=== PATIENT | male | born 1935 | race Caucasian/White ===

== ENCOUNTER → 2024-03-17 | Outpatient (CLI) | payer OTHER, SELFPAY ==
[2024-03-17 14:25] LABS: Glucose,Fasting 110 mg/dL (74-106)
== END | disposition home or self-care (01) ==
PROVIDERS: PCP Family Medicine; Referring Provider Dermatology; Visit Provider Dermatology
DX: B37.2 Candidiasis of skin and nail (principal)
CPT/HCPCS: 36415; 82947

== ENCOUNTER 2024-03-29 04:01 | Inpatient (IN) | payer OTHER, MEDICARE, SELFPAY ==
[2024-03-29] VITALS (12 sets, daily range): BP systolic 113–134; BP diastolic 71–88; PULSE 84–108; RESP 16–20; TEMP 36.7–37.7; O2SAT 96–100; BMI 23.5; BMI 24.3
--- NOTE | 2024-03-29 04:23 | XR_ITS ---
Examination:Right hip AP, lateral, AP pelvis 3 views Technique: Hip AP lateral, AP pelvis, 3 views Exam date and time:30 hours Indications: Patient fell today with injury to the right hip, right hip pain Findings: Acute angulated intertrochanteric fracture right hip Left hip bones of the pelvis intact Impression: Acute angulated intertrochanteric fracture right hip.
--- NOTE | 2024-03-29 04:31 | EDNOTE_ITS ---
ED Fall Injury RME/HPI General Chief Complaint: Fall Stated Complaint: FALL Time Seen by Provider: 03/29/24 04:33 Arrival date/time: 03/29/24 04:01 RME / HPI RME / HPI Narrative: Dr. Miller's Main ED Evaluation: 88yo male with pmhx COPD, aFib, BPH BIBA from home presents to the ED for a chief complaint of a ground-level fall. Patient states he was walking to the bathroom when lost his balance, landing on his right leg. He reports having right hip pain and the inability to move his RLE. He endorses hitting his head, but denies any loss of consciousness. Reports having nausea. He denies any dizziness, lightheadedness, V/D, chest pain, shortness of breath, abdominal pain, back pain, headache or any other associated symptoms. No known allergies. Related Data Home Medications ?Medication ?Instructions ?Recorded ?Confirmed budesonide-formoterol HFA 160 2 inh inhalation BID 11/25/22 10/09/23 mcg-4.5 mcg/actuation aerosol inhaler (Symbicort) diltiazem HCl 240 mg 240 mg PO QDAY 11/25/22 10/09/23 capsule,extended release 24 hr memantine 5 mg tablet 5 mg PO BID 11/25/22 10/09/23 mirtazapine 45 mg tablet 45 mg PO QDAY 11/25/22 10/09/23 famotidine 20 mg tablet 20 mg PO QDAY 04/23/23 10/09/23 finasteride 5 mg tablet 5 mg PO QDAY 04/23/23 10/09/23 rosuvastatin 10 mg tablet (Crestor) mg 09/25/23 10/09/23 tamsulosin 0.4 mg capsule 0.4 mg PO QHS 10/09/23 10/09/23 Previous Rx's ?Medication ?Instructions ?Recorded apixaban 2.5 mg tablet (Eliquis) 2.5 mg PO BID #60 tabs 08/20/23 Allergies Allergy/AdvReac Type Severity Reaction Status Date / Time No Known Allergies Allergy Verified 10/09/23 11:39 Review of Systems Review of Systems Systems Reviewed: All systems reviewed, normal except as documented Narrative Review of Systems: Gen: No fever, no chills, no weight loss EYES: No discharge, no visual changes, no pain HEENT: No ear pain, no congestion, no sore throat PULM: No shortness of breath, no cough, no congestion CV: No chest pain, no dyspnea on exertion, no palpitations GI: No nausea, no vomiting, no diarrhea, no pain, no constipation : No frequency, no urgency, no dysuria Musc/skel: + RLE pain, no back pain Skin: No rash. Warm and dry. Psyc: No hallucinations, no depression Heme/Lymph: No easy bleeding or bruising tendencies Neuro: No weakness, no headache ED Exam Narrative Physical exam: GEN. APPEARANCE: Patient is alert awake oriented x3 under pain distress; does not look ill/ toxic. Patient has good eye contact. Patient is cooperative. VITALS: All vitals were reviewed and the pulse ox is 99% on room air, which is normal according to my interpretation. HEENT: Normocephalic, atraumatic and nontender. Pupils are equal and reactive to light and accommodation. Oral mucosa are moist. NECK: Supple, nontender, no meningismus, no JVD. CHEST: Nontender on palpation, no deformity and no crepitus. CARDIOVASCULAR: Heart regular rhythm no murmur or gallop rub or extra beats; not tachycardic. LUNGS: Clear to auscultation bilaterally with symmetrical chest rise. No laboring tachypnea or wheezing. No intercostal subcostal retraction. No rales and no rhonchi. ABDOMEN: Soft, flat, nontender at all, no guarding or rebound tenderness. There are no abnormal masses palpated. No pulsatile masses or bruits. Active and normal bowel sounds. GENITALIA: Not examined. RECTAL EXAM: Not done. EXTREMITIES: Nontender. No edema. No cyanosis. Patient's RLE is shortened and externally rotated. N/V is intact. There's no local laceration. SKIN: Warm and dry, no rashes noted. MUSCULOSKELETAL: No lumbar or midline bony tenderness. There is no CVA tenderness. No paraspinal muscle spasm or tenderness. NEURO: Cranial nerves II through XII grossly intact. There is no focalization. GCS is 15. PSYCHIATRIC: Patient is in normal mood and affect, cooperative. LYMPHATICS: No major lymphadenopathy noted. Course Quality Measures none Orders Category Date Time Status EKG (ED ONLY) *Do not use* NOW Care 03/29/24 04:34 Active Hall [Urinary Catheter] QS Care 03/29/24 04:33 Active IV [Insert IV] NOW Care 03/29/24 04:33 Completed Consult to Orthopedic Stat Cons 03/29/24 05:[address] cervical spine wo con Stat Exams 03/29/24 04:[address] head/brain wo con Stat Exams 03/29/24 04:[address] hip RT wo con Stat Exams 03/29/24 04:37 Taken EKG (ED Only) Stat Exams 03/29/24 04:33 Draft XR femur RT 2V Stat Exams 03/29/24 04:47 Ordered XR hip RT w pelvis min 4V Stat Exams 03/29/24 04:23 Taken CBC Stat Lab 03/29/24 04:34 Ordered CMP [Comprehensive Metabolic Panel] Stat Lab 03/29/24 04:34 Ordered PT [Prothrombin Time with INR] Stat Lab 03/29/24 04:34 Ordered PTT [Partial Thromboplastin Time] Stat Lab 03/29/24 04:34 Ordered Troponin I Stat Lab 03/29/24 04:34 Ordered Type and Screen Stat Lab 03/29/24 04:36 Ordered UA, C/S IF [Urinalysis, C/S if Indicated] Stat Lab 03/29/24 04:35 Ordered Morphine Inj Med 03/29/24 04:33 Discontinued 5 mg IVP X1 ONE Ondansetron Odt [Zofran Odt] Med 03/29/24 04:33 Discontinued 4 mg PO X1 ONE Vital Signs Vital signs: Vital Signs Temperature 98.0 F 03/29/24 04:06 Pulse Rate 99 03/29/24 04:06 Respiratory Rate 18 03/29/24 04:06 Blood Pressure 134/76 H 03/29/24 04:06 Pulse Oximetry (%) 99 03/29/24 04:06 Oxygen Delivery Method Room Air 03/29/24 04:06 Procedures -ED EKG Interpretation #1: Date of EK03/29/24 Rate: 92 Interpretation: Interpreted by me EKG Impression: Normal axis, Atrial fibrillation and Non-specific ST-T Fall MDM Narrative MDM Narrative:: Scribe Attestation: 03/29/24 - Trista Haney am scribing for and in the presence of Dr. Miller. Patient was brought in by ambulance from home due to a fall about 1 and half hours ago when he was walking from his bed to his bathroom to urinate and he lost his balance and fell on his right side. He complains of right hip pain without any pain in his knee or his lower leg. He says that he hit his head but he did not lose consciousness nor he has any headache. He denies any dizziness before or after the fall. He was nauseated from the pain but he did not vomit. He says that the pain is excruciating and he is requesting painkillers right away. He denies any back pain. He says that he hit his right side of his chest from a coffee table and he is got a small abrasion on his anterior right lower chest without any active bleed; there is no gaping of the wound. He never broke her hip before. He has history of chronic atrial fibrillation and he is on Eliquis 2.5 mg twice daily. On the physical exam, it shows a shortening of the right lower extremity with external rotation indicative of right hip fracture. He has a history of COPD but no hypertension and he quit smoking more than 30 years ago. At 5 AM, his x-rays do confirm that he has a completely displaced right intratrochanteric fracture according to my interpretation. There is no dislocation. Therefore, I texted the images to Dr. Lundberg, our orthopedic doctor on-call and he wants the hospitalist to admit him to the hospital and he will consult in the morning. And I discussed the case with Dr. Ramsey, PGY2, who said that she will pass the case onto the morning Because we do not have any of his CAT scans nor his lab work yet. Provider Notation: Although this document has been carefully reviewed, there may still be some phonetic and other typographical errors. These errors are purely grammatical due to imperfections in the software program and should not be construed in any way to compromise the substance of the patient's medical care during this visit. Patient data External records reviewed:: [facility] previous records (Per chart review, patient was admitted here on 08/16/23 for aFib.) Clinical information provided by:: patient Social determinants that could affect healthcare access:: substance use (quit smoking cigarettes in 1988) Patient has the following chronic illnesses:: COPD, aFib, BPH How is presenting disease/condition affected by chronic disease/condition?: uneffected by Evaluation data The following diagnostics were reviewed and interpreted by me:: lab results, radiology exam(s) and EKG tracing(s) Lab and/or radiology exams considered but not ordered:: none Interpretation Summary: See above under MDM narrative. Medications / Prescriptions Medications or Prescriptions considered but not ordered:: none Medication administrations:: Medication Administration History Discontinued Medications Morphine Sulfate (Morphine Sulf Inj 10 Mg/Ml Vial) 5 mg IVP X1 ONE Stop: 03/29/24 04:34 Last Admin: 03/29/24 04:42 Dose: 5 mg Documented By: RADHA Ondansetron HCl (Ondansetron Odt 4 Mg Tabrap) 4 mg PO X1 ONE; Protocol Stop: 03/29/24 04:34 Last Admin: 03/29/24 04:42 Dose: 4 mg Documented By: RADHA see above, if any Consultations Consultation(s) initiated? (list below): Yes Diagnosis Fall Differential Diagnosis: other (fall, fracture, dislocation, ICH, cervical fracture) Most likely diagnosis given after review of the tests above:: see below Admission Indicated Admission indicated?: indicated Admission Request Was there a request for admission?: Yes Admission Attestation Admission request attestation: Discussed case with [] from Hospitalist service regarding admission. Discussed patients ED course, exam findings, labs, and radiology results. The Hospitalist [agrees,declines] to accept the patient for admission. Disposition Plan Disposition Plan: Admit Discharge Plan Plan Patient Disposition: Admit Acute Care w/in Hospital Prescriptions/Referrals Prescriptions/Med Rec: No Action tamsulosin 0.4 mg capsule 0.4 mg PO QHS famotidine 20 mg tablet 20 mg PO QDAY finasteride 5 mg tablet 5 mg PO QDAY diltiazem HCl 240 mg capsule,extended release 24hr 240 mg PO QDAY Patient Comments: take 1 capsule by mouth once daily mirtazapine 45 mg tablet 45 mg PO QDAY memantine 5 mg tablet 5 mg PO BID Patient Comments: take 1 tablet by mouth twice a day budesonide-formoterol [Symbicort] 160-4.5 mcg/actuation HFA aerosol inhaler 2 inh INHALATION BID Eliquis 2.5 mg Tablet 2.5 mg PO BID Qty: 60 0RF rosuvastatin [Crestor] 10 mg Tablet Problem List Clinical Impression: Fall, Closed intertrochanteric fracture of right femur Patient/Caregiver Discharge Instructions Print Language: Georgian Stand Alone Forms: Iram Award Info., Patient Portal Info Letter
--- NOTE | 2024-03-29 04:33 | EKG_ITS ---
[facility] Test Date: 2024-03-29 Pat Name: MARY GARRISON Department: Room: - Gender: Male Trust Evaluation Supervisor: : [id number] Requested By: Addi Miller Order Number: [id number] Reading MD: Addi Miller Measurements Intervals [place] Rate: 92 P: RI: QRS: 35 QRSD: 74 T: 38 QT: 360 QTc: 447 Interpretive Statements ATRIAL FIBRILLATION NONSPECIFIC T-WAVE ABNORMALITY ABNORMAL RHYTHM ECG Compared to ECG 08/17/2023 16:47:38 T-wave abnormality now present /store/S0/[id number].pdf
--- NOTE | 2024-03-29 04:37 | XR_ITS ---
Examination: CT cervical spine without contrast 2-D sagittal reconstructions 2-D coronal reconstructions 3-D reconstructions. Exam date and time:March 29, 2024 0501 hrs. Indications: Patient fell 2 hours ago with injury to the neck, neck pain CTDI:vol (mGy) 11.86 DLP: (mGycm) 272 Technique: Multiple 2 mm axial sections of the cervical spine have been obtained. The coronal and sagittal reconstructions have been obtained. 3-D reconstructions have been obtained. Low dose protocols were performed. One or more of the following dose reduction techniques were used; automated exposure control, adjustment of the mA and/or KV according to patient size, use of iterative reconstruction technique. Findings: Axial sections demonstrate intact base of the skull. C1 exhibit satisfactory relationship to the odontoid. No acute cervical vertebral body fracture seen. Alignment posterior spinous processes satisfactory. 6 mm sclerotic focus in the C7 vertebral body, sagittal image 44, axial image 107 Impression: No acute cervical fracture. 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
--- NOTE | 2024-03-29 04:37 | XR_ITS ---
Examination: CT right hip, without contrast. CT pelvis without intravenous contrast 2-D sagittal reconstructions. 2-D coronal reconstructions. 3-D reconstructions. Date and time of exam: March 28 2024 0503 hrs. Indications: Patient fell 2 hours ago with injury to the right hip, right hip pain CTDI: vol (mGy):6.07 DLP: (mGycm):307 Technique: Multiple 1.25 mm axial sections of the pelvis right hip have been obtained. 2-D sagittal and coronal reconstructions have been obtained. 3-D reconstructions have been obtained. Low dose protocols were performed. One or more of the following dose reduction techniques were used; automated exposure control, adjustment of the mA and/or KV according to patient size, use of iterative reconstruction technique. Findings: Severe osteopenia Acute comminuted angulated intertrochanteric fracture right hip with upward displacement of the femoral shaft Sacral segments intact Iliac bones acetabular regions anterior rami intact Urinary bladder intact with no pelvic hematoma Impression: Acute comminuted angulated intertrochanteric fracture right hip
--- NOTE | 2024-03-29 04:37 | XR_ITS ---
Examination: CT brain head without contrast. 2-D sagittal coronal reconstructions Date and time of exam: March 29, 2024 0500 hrs. Indications: Patient fell 2 hours ago with injury to the head, head pain CTDI: vol (mGy):6.07 DLP: (mGycm):307 Technique: Multiple CT axial sections of the brain have been obtained, 5 mm slice thickness. Contrast has not been administered. 2-D sagittal, coronal reconstructions have been obtained Low dose protocols were performed. One or more of the following dose reduction techniques were used; automated exposure control, adjustment of the mA and/or KV according to patient size, use of iterative reconstruction technique. Findings: No significant ventricular enlargement. 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 No mass effect or midline shift Basal cisterns are not remarkable. Fourth ventricle is midline. Cranial vault intact. Impression: Negative for acute hemorrhage, mass effect or midline shift
[2024-03-29] MEDS: MORPHINE SULF INJ 10 MG/ML VIAL 5 MG IVP ×2 (04:42→08:53)
[2024-03-29] MEDS: ONDANSETRON ODT 4 MG TABRAP PO (04:42)
--- NOTE | 2024-03-29 04:47 | XR_ITS ---
Examination: Right femur 2 views Technique one AP lateral right femur 2 views Exam date and time: March 29, 2024 0549 hrs. Indications: Patient fell today with injury to the right leg, right leg right hip pain Findings: Acute angulated intertrochanteric fracture right hip upward displacement mild of the femoral shaft No dislocation Shaft of the femur intact Severe osteopenia Impression: Acute intertrochanteric fracture right hip
--- NOTE | 2024-03-29 05:06 | EVENTNT_ITS ---
<Statement entered by Donell Laureano MD - 03/29/24 09:21> I was present for the essential components of the history, physical examination, diagnosis, and treatment plan with the resident. I have reviewed the documentation, discussed the case with the resident and agree with the patient's care as documented by the resident. Donell Laureano MD Documentation for date of: 03/29/24 Event Note Event Note: We received a call about patient is 88-year-old male with past medical history of COPD, A-fib, BPH, presented to ED with chief complaints of ground-level fall. He endorses hitting his head, but denies any loss of consciousness, also patient is having a nausea, denied any dizziness, lightheadedness, chest pain, shortness of breath, or any other associated symptoms. CBC is pending, CMP is pending, CT cervical spine, CT head,CT hip, is still pending, x-ray of the femur was done, report still pending. Per ED signout they contacted orthopedic surgeon Dr.Srivastava Mishra who agreed to admit the patient. Since all the labs and imaging still pending patient is on Eliquis, endorsed headache, we will not admit until after CT head is negative. We will follow on the results, if results come back after 6 AM we will let the day team know to follow up with the reports and will sign out to day team. Patient care was discussed with attending physician Dr. Sridevi Small MD PGY-2
[2024-03-29 05:56] LABS: Collection Type, Urine Catheter; Squamous Epithelial Cell,Urine 0 /hpf (0-5)
--- NOTE | 2024-03-29 06:11 | PRELIM_ITS ---
CT scan of the cervical spine without intravenous contrast (axial sections with sagittal and coronal reformats) March 29, 2024 0501 hours Clinical History: fall Findings:The bones are osteopenic. The re is no fracture or traumatic subluxation. There is minimal retrolisthesis of C4 on C5 vertebra. The re is mild reversal of cervical lordosis, which may be related to muscle spasm or patient positioning . Degenerative changes are noted in the form of multilevel marginal osteophytes, decreased disc spac es and endplate sclerosis. C3-C4 through C6-C7 disc osteophyte complexes are noted with associated un cinate hypertrophy and facet arthropathy causing mild spinal canal and bilateral neural foraminal antonette rowing. The prevertebral soft tissues are unremarkable.Impression:No evidence of fracture or traumati c subluxation.Degenerative changes as described above. Other findings as described above. Report Clementina ctronically Signed By: Ivana Toledo 03/29/2024 6:11:00 AM [EST]
--- NOTE | 2024-03-29 06:11 | PRELIM_ITS ---
CT scan of the head without intravenous contrast (axial sections with sagittal and coronal reformats) March 29, 2024 0500 hoursClinical History: fallFindings:There is no evidence of intracranial hemo rrhage, mass effect or midline shift. There are an old lacunar infarcts in the bilateral basal gangl ia. There are periventricular white matter hypodensities, compatible with chronic small vessel ischem ia. There is moderate volume loss. There is atheromatous calcification of the intracranial arteries. Basal ganglia calcifications are present bilaterally. The calvarium is intact. The mastoid air cells and the visualized paranasal sinuses are clear.Impression:No evidence of intracranial hemorrhage, mid line shift or calvarial fracture. Periventricular chronic small vessel ischemia and volume loss. Repo rt Electronically Signed By: Ivana Toledo 03/29/2024 6:10:29 AM [EST]
[2024-03-29 06:15] LABS: Basophils % (Auto) 1 % (0-2.5); Eosinophils # (Auto) 0.1 Thou/mm3 (0.0-0.5); Eosinophils % (Auto) 1 % (0-10); Hematocrit 38.9 % (41.0-53.0); Hemoglobin 12.5 g/dL (13.5-16.0); Immature Granulocytes % (Auto) 0 % (0-0); Immature Granulocytes Auto 0.03 Thou/mm3 (0.00-0.00); Lymphocytes # (Auto) 1.4 Thou/mm3 (1.0-4.8); Lymphocytes % (Auto) 17 % (10-50); Mean Corpuscular HGB Conc 32.1 g/dl (31.0-37.0); Mean Corpuscular Volume 87 fL (80-100); Monocytes # (Auto) 0.4 Thou/mm3 (0.0-0.8); Monocytes % (Auto) 5 % (0-12); Neutrophils # (Auto) 6.1 Thou/mm3 (1.8-7.7); Neutrophils % (Auto) 75 % (37-80); Nucleated Red Blood Cell % 0 /100 WBC (0); Platelet Count 249 Thou/mm3 (140-440); RDW Standard Deviation 49.6 fL (35.1-43.9); Red Blood Count 4.47 Miln/mm3 (4.50-5.90); White Blood Count 8.1 Thou/mm3 (3.8-10.6)
[2024-03-29 06:15] LABS: Bilirubin,Urine Negative (Negative); Blood,Urine 3+ (Negative); Clarity,Urine Turbid (Clear/Hazy); Color,Urine Brown (Lt Yel-Yel); Glucose, Urine Negative (Negative); Ketones,Urine Negative (Negative); Leukocyte Esterase,Urine Positive (Negative); Nitrite,Urine Negative (Negative); Protein,Urine 1+ (Neg - Trace); RBC,Urine 4697 /hpf (0-3); Specific Gravity,Urine 1.015 (1.001-1.035); Urobilinogen,Urine Negative mg/dL (0.0-1.0); WBC,Urine 80 /hpf (0-5)
[2024-03-29 06:23] LABS: Culture Indicated,Urine Yes
[2024-03-29 06:31] LABS: INR 1.1 (0.9-1.3); Partial Thromboplastin Time 23.6 Seconds (22.0-36.0); Prothrombin Time 11.9 Seconds (9.0-12.2)
--- NOTE | 2024-03-29 06:34 | PRELIM_ITS ---
CT scan of the right hip without intravenous contrast (axial sections with sagittal and coronal refor mats) March 29, 2024 0503 hours Clinical History: fall Findings:There is an acute displaced intert rochanteric fracture of the right femur with adjacent soft tissue swelling. The hip joint spaces are maintained. The sacroiliac joints are unremarkable. The visualized soft tissues including pelvic vis cera are unremarkable.Impression:Acute displaced intertrochanteric fracture of the right femur. Rep ort Electronically Signed By: Gonzalo Royal 03/29/2024 6:34:10 AM [EST]
[2024-03-29 06:37] LABS: Alanine Aminotransferase 11 U/L (10-49); Albumin, Serum 4.8 gm/dL (3.4-4.8); Albumin/Globulin Ratio 1.6 (1.2-2.2); Alkaline Phosphatase 109 U/L (46-116); Anion Gap 9 (7-16); Aspartate Amino Transferase 25 U/L (0-34); BUN/Creatinine Ratio 16 Ratio (12-20); Bilirubin,Total 0.6 mg/dL (0.3-1.2); Blood Urea Nitrogen 16 mg/dL (9-23); Calcium 9.5 mg/dL (8.3-10.6); Calcium (Corrected) 9.5 mg/dL (8.5-10.1); Carbon Dioxide 22.6 mMol/L (20.0-31.0); Chloride 105 mMol/L (98-107); Estimated Creatinine Clearance 49.6 mL/min (>60); Glucose 158 mg/dL (74-106); Osmolality,Calculated 278 (275-295); Potassium 3.7 mMol/L (3.4-5.1); Sodium 137 mMol/L (136-145); Total Protein 7.8 gm/dL (5.7-8.2); Troponin I < 0.020 ng/mL (0.0-0.045); eGFR > 60 See Note
[2024-03-29] MEDS: SODIUM CHLORIDE 0.9% 1000 ML 1,000 ML 75 ML IV (11:17)
[2024-03-29] MEDS: TAMSULOSIN HCL 0.4 MG CAPSULE PO (11:19)
[2024-03-29] MEDS: PANTOPRAZOLE INJ 40 MG VIAL IVP (11:19)
[2024-03-29] MEDS: FINASTERIDE 5 MG TABLET PO (11:20)
--- NOTE | 2024-03-29 13:03 | ESHP_ITS ---
<Statement entered by Segundo Orantes MD - 03/29/24 18:29> Senior Resident Attestation: I supervised/discussed management plan with copywriting intern physician Dr. Sue, and was involved in the care of this patient. I personally saw and examined the patient and discussed the assessment and plan with the entire medicine team, including my attending. I agree with the assessment and plan as documented. Patient is a 88 years old male with PMH of COPD, A-fib, recurrent kidney stones with chronic kidney stone followed by Dr. Hanna, BPH and skin Ca presented to the ED after ground-level fall. He was found to have acute comminuted angulated intertrochanteric fracture in right hip and was admitted to the hospital after orthopedic surgery consult. Pain control was provided, his home Eliquis was held due to upcoming surgery. He was also found to have significant hematouria and pyuria with UTI symptoms and was started on IV ceftriaxone. Patient was previously offered surgical management of his kidney stones but he refused. Patient's care was discussed with attending physician, Dr. Hansen. Segundo Orantes MD PGY-2. Documentation for date of: 03/29/24 HPI History of Present Illness History of present illness: Mr. Navarrete is a 88-year-old male with past medical history significant of COPD, chronic bronchitis, asthma, A-fib, BPH, history of skin cancer status post radiation and recurrent kidney stones presents to the ED after a ground-level fall. Patient states that he woke up at 2:00 in the morning to use the bathroom and lost his balance and fell on his right leg. Patient states that he did hit his head on the side of the couch but denies dizziness or syncopal episodes. Patient denies a headache vision changes or chest pains. Patient lives with his and a son. Patient denies any abdominal pain but does state that he has noticed blood in his urine for a long time and denies any blood in his stool. Patient sees a urologist who previously had offered for surgery to remove kidney stones which patient had declined at the time. Patient also states that recently he was told that he has prediabetes which is now diet controlled. Patient denies any previous episodes of falls. ED course: In the ED patient's vitals include blood pressure 134/76, pulse 99, lab findings had no significant findings. Urinalysis showed urine blood 3+, urine RBC 4697, urine WBC 80 and leukocyte esterase positive. Hip/pelvis x-ray- Acute angulated intertrochanteric fracture right hip. Cervical spine CT-no acute cervical fracture. 6 mm sclerotic focus in the C7 vertebral body, differential would include osteoblastic metastasis. Head CT was negative for acute hemorrhage, mass effect or midline shift. Hip CT- Acute comminuted angulated intertrochanteric fracture right hip Femur x-ray- Acute intertrochanteric fracture right hip EKG [id number] with T wave abnormality Dr. Lundberg was consulted by the ED Dr. Bravo his set rider was also consulted by the ED Patient was given 5 Mg of morphine x 2 PMH: COPD, chronic bronchitis, asthma, A-fib, nephrolithiasis, history of skin cancer on scalp s/p radiation PSH: Femoral and hiatal hernia repair SH: Drinks alcohol occasionally, last cigarette was in 1988, denies use of drugs Home Meds: Eliquis, tamsulosin 0.4 Mg, silodosin, rosuvastatin, memantine 5 Mg, mirtazapine Review of Systems Review of Systems Systems Reviewed: All systems reviewed, normal except as documented Exam Vital Signs Temp Pulse Resp BP Pulse Ox O2 Del Method 98.2 F 88 20 130/73 99 Room Air 03/29/24 12:46 03/29/24 12:46 03/29/24 12:46 03/29/24 12:46 03/29/24 12:46 03/29/24 12:46 Narrative Exam GENERAL: A&Ox3 . Awake, mildly in distress from pain NEURO: associate automation engineer grossly intact, moves extremities x4 HEENT: Atraumatic, Normocephalic. mucous membranes moist. Eyes open, symmetrical, & clear HEART: Normal Heart Sounds LUNGS: Clear to auscultation with no wheezing or crackles. ABDOMEN: soft, non-distended, non-tender, bowel sounds heard, no guarding or rebound tenderness SKIN: No Rash or ecchymoses EXTREMITIES: No edema, tenderness over the right hip region Results: Labs 03/31/24 04:45 03/31/24 04:45 Labs: Short CBC 03/29/24 Range/Units 05:38 WBC 8.1 (3.8-10.6) Thou/mm3 Hgb 12.5 L (13.5-16.0) g/dL Hct 38.9 L (41.0-53.0) % Plt Count 249 (140-440) Thou/mm3 BMP 03/29/24 05:38 Sodium 137 Potassium 3.7 Chloride 105 Carbon Dioxide 22.6 BUN 16 Creatinine 1.0 Glucose 158 H Calcium 9.5 Cardiac Enzymes 03/29/24 Range/Units 05:38 Troponin I < 0.020 (0.0-0.045) ng/mL Liver Function 03/29/24 Range/Units 05:38 Total Bilirubin 0.6 (0.3-1.2) mg/dL AST 25 (0-34) U/L ALT 11 (10-49) U/L Alkaline Phosphatase 109 (46-116) U/L Albumin 4.8 (3.4-4.8) gm/dL Urine 03/29/24 Range/Units 05:25 Urine Color Brown A (Lt Yel-Yel) Urine Clarity Turbid A (Clear/Hazy) Urine pH 6.0 (5.0-7.0) Ur Specific [place] 1.015 (1.001-1.035) Urine Protein 1+ A (Neg - Trace) Urine Glucose (UA) Negative (Negative) Quality Measures Quality Measures none Advance care planning discussed with:: patient Medications Home Medications and Allergies Home Medications ?Medication ?Instructions ?Recorded ?Confirmed ?Type budesonide-formoterol HFA 160 2 inh inhalation BID 11/25/22 10/09/23 History mcg-4.5 mcg/actuation aerosol inhaler (Symbicort) diltiazem HCl 240 mg 240 mg PO QDAY 11/25/22 10/09/23 History capsule,extended release 24 hr memantine 5 mg tablet 5 mg PO BID 11/25/22 10/09/23 History mirtazapine 45 mg tablet 45 mg PO QDAY 11/25/22 10/09/23 History famotidine 20 mg tablet 20 mg PO QDAY 04/23/23 10/09/23 History finasteride 5 mg tablet 5 mg PO QDAY 04/23/23 10/09/23 History rosuvastatin 10 mg tablet (Crestor) mg 09/25/23 10/09/23 History tamsulosin 0.4 mg capsule (Flomax) 0.4 mg PO QHS 10/09/23 03/30/24 History hydrocodone 10 mg-acetaminophen 1 tab PO BID PRN Pain, Moderate 03/31/24 03/31/24 History 325 mg tablet Allergies Allergy/AdvReac Type Severity Reaction Status Date / Time No Known Allergies Allergy Verified 10/09/23 11:39 Visit Medications Acetaminophen (Acetaminophen 325 Mg Tablet) 650 mg PO Q6H PRN PRN Reason: PAIN SCALE 1-3 (mild Stop: 04/28/24 09:15 Hydrocodone Bitart/Acetaminophen (Hydrocodone/Apap 5/325 Tablet) 1 tab PO Q4HR PRN PRN Reason: PAIN SCALE 4-6 (Moderate Stop: 04/03/24 09:15 Albuterol/Ipratropium (Albuterol/Ipratropium (Duoneb) Rt Wilda 3 Ml Nebu) 3 ml INH Q6HRRT PRN PRN Reason: wheezing or SOB Stop: 04/28/24 12:59 Finasteride (Finasteride 5 Mg Tablet) 5 mg PO QDAY [place]ET[place] Stop: 04/28/24 09:29 Last Admin: 03/29/24 11:20 Dose: 5 mg Sodium Chloride (Ns) 1,000 mls @ 75 mls/hr IV .[id number] CORETTA Stop: 03/30/24 11:54 Last Admin: 03/29/24 11:17 Dose: 75 mls/hr Morphine Sulfate (Morphine Sulf Inj 10 Mg/Ml Vial) 2 mg IVP Q2H PRN PRN Reason: PAIN SCALE 7-10 (Severe Stop: 04/03/24 09:15 Ondansetron HCl (Ondansetron Inj 2 Mg/Ml Inj 2 Ml) 4 mg IV Q6H PRN; Protocol PRN Reason: NAUSEA OR VOMITING Stop: 04/28/24 09:15 Pantoprazole Sodium (Pantoprazole Inj 40 Mg Vial) 40 mg IVP QDAY [place]ET[place] Stop: 04/28/24 09:29 Last Admin: 03/29/24 11:19 Dose: 40 mg Tamsulosin HCl (Tamsulosin Hcl 0.4 Mg Capsule) 0.4 mg PO QDAY [place]ETTA Stop: 04/28/24 09:29 Last Admin: 03/29/24 11:19 Dose: 0.4 mg Discontinued Medications Morphine Sulfate (Morphine Sulf Inj 10 Mg/Ml Vial) 5 mg IVP X1 ONE Stop: 03/29/24 04:34 Last Admin: 03/29/24 04:42 Dose: 5 mg Morphine Sulfate (Morphine Sulf Inj 10 Mg/Ml Vial) 5 mg IVP X1 ONE Stop: 03/29/24 08:39 Last Admin: 03/29/24 08:53 Dose: 5 mg Ondansetron HCl (Ondansetron Odt 4 Mg Tabrap) 4 mg PO X1 ONE; Protocol Stop: 03/29/24 04:34 Last Admin: 03/29/24 04:42 Dose: 4 mg Assessment & Plan Plan TMr. Navarrete is a 88-year-old male with past medical history significant of COPD, chronic bronchitis, asthma, A-fib, BPH, history of skin cancer status post radiation and recurrent kidney stones presents to the ED after a ground-level fall. Imaging revealed right hip fracture. # Acute intertrochanteric fracture right hip ?Due to ground-level fall -Hip/pelvis x-ray- Acute angulated intertrochanteric fracture right hip. -Cervical spine CT-no acute cervical fracture. 6 mm sclerotic focus in the C7 vertebral body, differential would include osteoblastic metastasis. -Head CT was negative for acute hemorrhage, mass effect or midline shift. -Hip CT- Acute comminuted angulated intertrochanteric fracture right hip -Femur x-ray- Acute intertrochanteric fracture right hip Plan: ? Ortho consulted Dr. Lundberg plans to do surgery on sunday 04/01 ? Pain management - [place] PRN Q4H -D/c Eliquis and all anticoagulation #UTI #pyuria -On urinalysis leukocyte esterase positive, urine WBC 80 -Patient denies dysuria and urinary urgency plan: -Ceftriaxone 1 g daily started 03/29- -monitor daily CBC # A-fib rate controlled ? [id number] of 5 ? Patient was taking diltiazem 240 CD once a day and Eliquis 2.5 mg twice daily. ? EKG showed A-fib with rate control. QTc 447. ? Echocardiogram from September 2023 -Estiamted EF 60-65%. Mild RV dilatation. Severe biatrial dilatation. The acending aorta is mildly dilated. 3.6cm. Moderate MR, TR. Mild AI. Plan: -Patient's set rider is Dr. Bravo, consulted with the following recommendations ? resume diltiazem 240 CD once a day ? Recommended to hold Eliquis given patient require hip fracture repair and recommended to restart 48 hours later postsurgery ? Continuous monitoring in telemetry ? Keep mag above 2 and potassium above 4 ? Daily labs ? Monitor for signs symptoms of chest pain and shortness of breath Abnormal CT findings -6 mm sclerotic focus in the C7 vertebral body, differential would include osteoblastic metastasis. Other problems # History of nephrolithiasis # Hematuria #BPH #COPD #Chronic Bronchitis -Patient is being followed by Dr. Hanna -Per patient patient continues to refuse for surgical treatment of nephrolithiasis plan: -Outpatient follow-up with urologist -Resume home tamsulosin and silodosin Assessment and plan discussed with my senior resident Dr. Orantes & attending physician Dr. Tyrone Sue (PGY-1)- Internal medicine resident Attending Provider Attestation/Addendum 88-year-old male with multiple comorbidities including COPD, atrial fibrillation on anticoagulation and skin cancer s/p radiation who presented to the ER with ground-level fall found to have acute right intertrochanteric hip fracture and subsequently admitted pending orthopedic evaluation. Will continue holding off Eliquis for A-fib and plan to consult cardiology for cardiac clearance. In addition, CT head noted 6 mm sclerotic focus in the C7 vertebral body which we updated the patient that this could be malignancy and recommended outpatient workup. He is in agreement I reviewed above note and agree with findings and plans. I have also personally examined the patient with medicine team and went over assessment and plan with medical team including copywriting intern and resident physician.
--- NOTE | 2024-03-29 13:25 | ESCONSULT_ITS ---
<Statement entered by Cedric Bravo MD - 04/01/24 09:02> I personally examined the patient appears to be doing clinically well he is admitted hospital fracture of the hip have known him very well history of hypertension A-fib rate controlled on diltiazem also on Eliquis admitted with fracture of the hip will require cardiac clearance patient is clinically stable we will continue the diltiazem for rate control reviewed the consultation report and findings agree with the treatment plan recommendation as documented with PGY 2 Dr[address] Silva. Spent more than 40 minutes going over all the questions concerns the risk benefits and alternatives. 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 Patient fell in the bathroom and lost his balance and landed on his right leg. Has been complaining of right hip pain and inability to move his right lower extremity. He also endorsed hitting his head but denied any loss of consciousness. Endorses nausea. Denied any dizziness, lightheadedness, nausea, vomiting, chest pain, shortness of breath., Abdominal pain or any other complaints. In the ED, patient was vitally stable. Labs revealed stable hemoglobin at 12.5. Chemistry panel was unremarkable. Kidney function stable with creatinine at 1.0. Troponin I was negative. Urine analysis showed trace proteinuria and blood 3+ with RBCs 4697 and WBC 80s with positive leukocyte esterase. U tox was negative. Pending urine culture. CT head was negative for any acute changes. CT cervical spine was negative for fracture. CT scan of the right hip showed acute displaced intertrochanteric fracture of right femur. Ortho was consulted for hip fracture repair. PMH: As above Allergies: NKDA Home medications: Diltiazem CD240 once a day, Eliquis 2.5 mg twice daily, famotidine 20 mg, finasteride 5 mg, memantine 5 mg twice daily, mirtazapine 45 mg, tamsulosin 0.4 mg Cardiology team consulted for cardiac clearance and patient does follow-up with Dr. Bravo as outpatient. Patient is admitted for acute displaced intertrochanteric fracture right femur post ground-level fall. Head CT and cervical spine x-ray was negative. Troponin I was negative. EKG showed A-fib with rate controlled pulse 92 bpm. QTc 447. Patient has stable hemoglobin. Chemistry panel is unremarkable. Kidney function stable. UA does show significant gross hematuria and pyuria. Recommendations as per primary care team. Patient was taking Cardizem CD 240 once a day for A-fib recommended to continue that and hold Eliquis for now given patient needs acute intertrochanteric fracture hip repair and continue restart Eliquis 2.5 mg 48 hours after surgery. Cardiology will follow the case closely. Ortho following the case for right hip fracture repair. Continue treatment for UTI with ceftriaxone. -we added lovenox 70 mgx1 for now and lovenox 70 mg for morning to bridge due to high risk of stroke. All labs and orders were reviewed. cc:: cc: Chris Hansen MD Review of Systems Review of Systems Systems Reviewed: All systems reviewed, normal except as documented Past Medical History Past Medical History NEUROLOGIC: Negative Neurological Disorders or Seizures CARDIAC: Positive Cardiac Disorders, Atrial Fibrillation, Hypercholesterolemia and Hypertension; Negative Cardiac Arrhythmia, Angina, Atherosclerotic Heart Disease, Aneurysm, Congestive Heart Failure, Congenital Heart Disease or Cardiomyopathy RESPIRATORY: Positive Asthma and Pneumonia; Negative Chronic Obstructive Pulmonary Disease (COPD), Emphysema or Tuberculosis GENITOURINARY: Negative Renal Disease MUSCULOSKELETAL: Positive Musculoskeletal Disorders, Arthritis and Gout ENT: Positive Cataracts and Deafness ENDOCRINE: Negative Endocrine Disorders, Diabetes Mellitus Type 1 or Diabetes Mellitus Type 2 HEMATOLOGIC: Negative Blood Disorders OTHER HISTORY: Positive Falls, Blood Transfusions, Chicken Pox, Measles and Mumps; Negative Autoimmune Disease, Blood Transfusion Reaction, Anesthesia Reactions or Cancer Family History FAMILY HISTORY: Positive Family Cardiac Disorders, Family Gastrointestinal Problems, Family Cancer and Family Surgery; Negative Family Psychiatric Problems, Family Respiratory Disorders or Family Anesthesia Reaction Surgical History SURGICAL: Positive Abdominal Surgery Social History SMOKING STATUS: Never smoker SECOND HAND EXPOSURE: No SUBSTANCE USE: does not use OCCUPATION: [employer] Exam Vital Signs Temp Pulse Resp BP Pulse Ox O2 Del Method 98.2 F 88 20 130/73 99 Room Air 03/29/24 12:46 03/29/24 12:46 03/29/24 12:46 03/29/24 12:46 03/29/24 12:46 03/29/24 12:46 Narrative Exam GENERAL APPEARANCE: AxOx3, generally well-appearing male in mild distress due to right hip pain. HEENT: NC, AT. MMM. EOMI, clear conjunctiva, oropharynx clear. NECK: Supple without lymphadenopathy. No stiffness or restricted ROM. HEART: irregular rate and rhythm, normal S1/S2, no m/r/g LUNGS: Bilateral mild decreased breath sounds on auscultation ABDOMEN: Soft, nontender, nondistended with good bowel sounds heard. EXTREMITIES: Patient's RLE is shortened and externally rotated. NEUROLOGICAL: Grossly nonfocal. Alert and orientedx3 CN not formally tested but appear grossly intact. Skin: Warm and dry without any rash. Psych: Appropriate mood and affect Results Labs 03/29/24 05:38 03/29/24 05:38 Labs: Short CBC 03/29/24 Range/Units 05:38 WBC 8.1 (3.8-10.6) Thou/mm3 Hgb 12.5 L (13.5-16.0) g/dL Hct 38.9 L (41.0-53.0) % Plt Count 249 (140-440) Thou/mm3 BMP 03/29/24 05:38 Sodium 137 Potassium 3.7 Chloride 105 Carbon Dioxide 22.6 BUN 16 Creatinine 1.0 Glucose 158 H Calcium 9.5 Cardiac Enzymes 03/29/24 Range/Units 05:38 Troponin I < 0.020 (0.0-0.045) ng/mL Liver Function 03/29/24 Range/Units 05:38 Total Bilirubin 0.6 (0.3-1.2) mg/dL AST 25 (0-34) U/L ALT 11 (10-49) U/L Alkaline Phosphatase 109 (46-116) U/L Albumin 4.8 (3.4-4.8) gm/dL Urine 03/29/24 Range/Units 05:25 Urine Color Brown A (Lt Yel-Yel) Urine Clarity Turbid A (Clear/Hazy) Urine pH 6.0 (5.0-7.0) Ur Specific [place] 1.015 (1.001-1.035) Urine Protein 1+ A (Neg - Trace) Urine Glucose (UA) Negative (Negative) Quality Measures Quality Measures VTE prophylaxis (Eliquis on hold) Advance care planning discussed with:: patient Medications Home Medications and Allergies Home Medications ?Medication ?Instructions ?Recorded ?Confirmed ?Type budesonide-formoterol HFA 160 2 inh inhalation BID 11/25/22 10/09/23 History mcg-4.5 mcg/actuation aerosol inhaler (Symbicort) diltiazem HCl 240 mg 240 mg PO QDAY 11/25/22 10/09/23 History capsule,extended release 24 hr memantine 5 mg tablet 5 mg PO BID 11/25/22 10/09/23 History mirtazapine 45 mg tablet 45 mg PO QDAY 11/25/22 10/09/23 History famotidine 20 mg tablet 20 mg PO QDAY 04/23/23 10/09/23 History finasteride 5 mg tablet 5 mg PO QDAY 04/23/23 10/09/23 History rosuvastatin 10 mg tablet (Crestor) mg 09/25/23 10/09/23 History tamsulosin 0.4 mg capsule 0.4 mg PO QHS 10/09/23 10/09/23 History Allergies Allergy/AdvReac Type Severity Reaction Status Date / Time No Known Allergies Allergy Verified 10/09/23 11:39 Visit Medications Acetaminophen (Acetaminophen 325 Mg Tablet) 650 mg PO Q6H PRN PRN Reason: PAIN SCALE 1-3 (mild Stop: 04/28/24 09:15 Hydrocodone Bitart/Acetaminophen (Hydrocodone/Apap 5/325 Tablet) 1 tab PO Q4HR PRN PRN Reason: PAIN SCALE 4-6 (Moderate Stop: 04/03/24 09:15 Albuterol/Ipratropium (Albuterol/Ipratropium (Duoneb) Rt Wilda 3 Ml Nebu) 3 ml INH Q6HRRT PRN PRN Reason: wheezing or SOB Stop: 04/28/24 12:59 Diltiazem HCl (Diltiazem Cd 120 Mg Capcr) 240 mg PO QDAY [place]ET[place] Stop: 04/28/24 13:29 Finasteride (Finasteride 5 Mg Tablet) 5 mg PO QDAY [place] Stop: 04/28/24 09:29 Last Admin: 03/29/24 11:20 Dose: 5 mg Sodium Chloride (Ns) 1,000 mls @ 75 mls/hr IV .[id number] [facility] Stop: 03/30/24 11:54 Last Admin: 03/29/24 11:17 Dose: 75 mls/hr Morphine Sulfate (Morphine Sulf Inj 10 Mg/Ml Vial) 2 mg IVP Q2H PRN PRN Reason: PAIN SCALE 7-10 (Severe Stop: 04/03/24 09:15 Ondansetron HCl (Ondansetron Inj 2 Mg/Ml Inj 2 Ml) 4 mg IV Q6H PRN; Protocol PRN Reason: NAUSEA OR VOMITING Stop: 04/28/24 09:15 Pantoprazole Sodium (Pantoprazole Inj 40 Mg Vial) 40 mg IVP QDAY [facility] Stop: 04/28/24 09:29 Last Admin: 03/29/24 11:19 Dose: 40 mg Tamsulosin HCl (Tamsulosin Hcl 0.4 Mg Capsule) 0.4 mg PO QDAY [facility] Stop: 04/28/24 09:29 Last Admin: 03/29/24 11:19 Dose: 0.4 mg Discontinued Medications Morphine Sulfate (Morphine Sulf Inj 10 Mg/Ml Vial) 5 mg IVP X1 ONE Stop: 03/29/24 04:34 Last Admin: 03/29/24 04:42 Dose: 5 mg Morphine Sulfate (Morphine Sulf Inj 10 Mg/Ml Vial) 5 mg IVP X1 ONE Stop: 03/29/24 08:39 Last Admin: 03/29/24 08:53 Dose: 5 mg Ondansetron HCl (Ondansetron Odt 4 Mg Tabrap) 4 mg PO X1 ONE; Protocol Stop: 03/29/24 04:34 Last Admin: 03/29/24 04:42 Dose: 4 mg Assessment & Plan Plan The patient is an 88-year-old male with past medical hx chronic persistent atrial fibrillation with EDGARDO score of 3 on eliquis 2.5 twice daily,HTN, 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 Admitted for right intratrochanteric fracture. # A-fib rate controlled ? [id number] of 5 ? Patient was taking diltiazem 240 CD once a day and Eliquis 2.5 mg twice daily. ? EKG showed A-fib with rate control. QTc 447. ? Echocardiogram from September 2023 showed No LA/ GABI thrombus and no PFO or ASD GABI measurements: 0?(diameter: 2.8cm/Depth 2.5cm.), 45?(diameter 2.5cm/Depth 2.6cm), 90?(diameter 2.5cm/Depth 2.7cm), 135?(diameter 2.6cm/Depth 2.8cm). Normal LV size and function. Estiamted EF 60-65%. Mild RV dilatation. Normal RV function. Severe biatrial dilatation. The acending aorta is mildly dilated. 3.6cm. Moderate MR, TR. Mild AI. Plan: -we added lovenox 70 mgx1 for now and lovenox 70 mg for morning to bridge due to high risk of stroke ? Recommended to resume diltiazem 240 CD once a day ? Recommended to hold Eliquis given patient require hip fracture repair and recommended to restart 48 hours later postsurgery ? Continuous monitoring in telemetry ? Keep mag above 2 and potassium above 4 ? Daily labs ? Monitor for signs symptoms of chest pain and shortness of breath # History of hypertension ? Patient was recently discharged from the hospital in August 2023 after workup for stroke on Eliquis. Plan: ? Currently holding Eliquis for hip fracture. ? Continue statin therapy ? Monitor vitals ? Pain management as needed # Acute intertrochanteric fracture right hip ?Due to ground-level fall ? Ortho consulted and following the case. ? Pain management as needed # UTI #BPH #COPD #Chronic Bronchitis # History of cerebellar stroke multi infarction embolic phenomena due to A-fib on Eliquis # History of nephrolithiasis # Normocytic anemia # Hematuria and pyuria and UTI per urinalysis Rest of the management as per primary care team. Thank you very much for consulting cardiology team. Recommended to continue Cardizem CD240 once a day and hold Eliquis for now for surgery. Resume Eliquis 2.5 mg 48 hours postsurgery. -we added lovenox 70 mgx1 for now and lovenox 70 mg for morning to bridge due to high risk of stroke -- Plan of care discussed with savings teller, Dr. Lawrence Silva MD, PGY 2
[2024-03-29] MEDS: DILTIAZEM CD 120 MG CAPCR 240 MG PO (14:15)
[2024-03-29] MEDS: cefTRIAXone/D5w 1gm IV premix 50 ML IV (15:47)
--- NOTE | 2024-03-29 17:52 | PC.NURSE ---
Patient arrived to unit from er, alert and oriented x4. Patient stated family would bring in med list for home med rec.
--- NOTE | 2024-03-29 18:46 | PC.NURSE ---
Patient refused lovenox injection. Patient educated on importance of medication. Patient stated that the dental internship told him he needs to stay off all blood thinners until after surgery. Patient educated that the dental internship is the one who ordered the med. Patient stated this is some bullshit and refused.
[2024-03-29] MEDS: MORPHINE SULF INJ 10 MG/ML VIAL 2 MG IVP (22:30)
[2024-03-30] VITALS (10 sets, daily range): BP systolic 112–156; BP diastolic 68–101; PULSE 71–133; RESP 18–21; TEMP 36.6–37.5; O2SAT 95–98; BMI 24.3
[2024-03-30] MEDS: SODIUM CHLORIDE 0.9% 1000 ML 1,000 ML 75 ML IV (03:16)
[2024-03-30 05:31] LABS: Basophils % (Auto) 0 % (0-2.5); Eosinophils % (Auto) 0 % (0-10); Hematocrit 28.3 % (41.0-53.0); Hemoglobin 9.2 g/dL (13.5-16.0); Immature Granulocytes % (Auto) 0 % (0-0); Immature Granulocytes Auto 0.02 Thou/mm3 (0.00-0.00); Lymphocytes # (Auto) 0.9 Thou/mm3 (1.0-4.8); Lymphocytes % (Auto) 13 % (10-50); Mean Corpuscular HGB Conc 32.5 g/dl (31.0-37.0); Mean Corpuscular Hemoglobin 28.3 pg (25.0-35.0); Mean Corpuscular Volume 87 fL (80-100); Monocytes # (Auto) 0.4 Thou/mm3 (0.0-0.8); Monocytes % (Auto) 6 % (0-12); Neutrophils # (Auto) 5.7 Thou/mm3 (1.8-7.7); Neutrophils % (Auto) 81 % (37-80); Nucleated Red Blood Cell % 0 /100 WBC (0); Platelet Count 213 Thou/mm3 (140-440); RDW Standard Deviation 49.8 fL (35.1-43.9); Red Blood Count 3.25 Miln/mm3 (4.50-5.90); White Blood Count 7.1 Thou/mm3 (3.8-10.6)
[2024-03-30 05:49] LABS: INR 1.1 (0.9-1.3); Partial Thromboplastin Time 29.2 Seconds (22.0-36.0)
[2024-03-30 06:48] LABS: Alanine Aminotransferase 9 U/L (10-49); Albumin, Serum 3.6 gm/dL (3.4-4.8); Albumin/Globulin Ratio 1.6 (1.2-2.2); Alkaline Phosphatase 74 U/L (46-116); Anion Gap 5 (7-16); Aspartate Amino Transferase 22 U/L (0-34); BUN/Creatinine Ratio 18 Ratio (12-20); Bilirubin,Total 0.7 mg/dL (0.3-1.2); Blood Urea Nitrogen 14 mg/dL (9-23); Calcium 8.6 mg/dL (8.3-10.6); Calcium (Corrected) 8.9 mg/dL (8.5-10.1); Carbon Dioxide 24.3 mMol/L (20.0-31.0); Chloride 109 mMol/L (98-107); Creatinine (Component) 0.8 mg/dL (0.6-1.3); Globulin 2.2 gm/dL (2.3-3.5); Glucose 151 mg/dL (74-106); Magnesium 1.9 mg/dL (1.6-2.6); Osmolality,Calculated 279 (275-295); Phosphorous 3.6 mg/dL (2.4-5.1); Potassium 3.7 mMol/L (3.4-5.1); Sodium 138 mMol/L (136-145); Total Protein 5.8 gm/dL (5.7-8.2); eGFR > 60 See Note
[2024-03-30] MEDS: DILTIAZEM CD 120 MG CAPCR 240 MG PO (08:17)
[2024-03-30] MEDS: cefTRIAXone/D5w 1gm IV premix 50 ML IV (08:17)
[2024-03-30] MEDS: ONDANSETRON INJ 2 MG/ML INJ 2 ML 4 MG IV ×3 (08:18→18:42)
[2024-03-30] MEDS: FINASTERIDE 5 MG TABLET PO (08:18)
[2024-03-30] MEDS: PANTOPRAZOLE INJ 40 MG VIAL IVP (08:18)
[2024-03-30] MEDS: TAMSULOSIN HCL 0.4 MG CAPSULE PO (08:18)
[2024-03-30] MEDS: ENOXAPARIN SOD INJ 80 MG/0.8 ML SYRINGE SC (08:19)
[2024-03-30] MEDS: HYDROcodone/APAP 5/325 TABLET 1 TAB PO (12:04)
--- NOTE | 2024-03-30 14:39 | PC.SS ---
Initial assessment: This is 88 year old male admitted for hip fracture. Patient appeared alert and oriented. Patient informs he live at home with spouse, Blanche and son. Patient confirmed demographic information. Patient's spouse, Blanche was identified as the patient's medical surrogate decision maker. Patient describes to be independent with ADL's prior to hospitalization. Patient denies use of DME at home. Patient's PCP is Dr. Beal. Pharmacy of choice is [facility] in [place]. The discharge plan was discussed, and the patient would like SNF, preferred is [facility]. Patient will require insurance authorization for SNF, which was explained to the patient and family. Patient will need transportation at time of discharge. Community resources provided for their review. D/c plan: SNF Next of kin: spouse, Blanche Navarrete
--- NOTE | 2024-03-30 14:45 | PC.SS ---
Rounding note: patient pending surgery possibly scheduled for Thursday04/01/24.
--- NOTE | 2024-03-30 14:55 | ESPR_ITS ---
<Statement entered by Cedric Bravo MD - 04/01/24 09:08> I personally examined the patient appears to be doing much better now atrial flutter patient ablation rate is controlled well we are also giving bridging anticoagulation with Lovenox once a day because her chads Vas is high I agree with the treatment plan recommendation as documented by Dr. Silva PGY 2 will continue to monitor the patient with closely. Patient had many questions I spoke to him in detail 25 minutes spent with the patient going over all the questions concerns. 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 Patient fell in the bathroom and lost his balance and landed on his right leg. Has been complaining of right hip pain and inability to move his right lower extremity. He also endorsed hitting his head but denied any loss of consciousness. Endorses nausea. Denied any dizziness, lightheadedness, nausea, vomiting, chest pain, shortness of breath., Abdominal pain or any other complaints. In the ED, patient was vitally stable. Labs revealed stable hemoglobin at 12.5. Chemistry panel was unremarkable. Kidney function stable with creatinine at 1.0. Troponin I was negative. Urine analysis showed trace proteinuria and blood 3+ with RBCs 4697 and WBC 80s with positive leukocyte esterase. U tox was negative. Pending urine culture. CT head was negative for any acute changes. CT cervical spine was negative for fracture. CT scan of the right hip showed acute displaced intertrochanteric fracture of right femur. Ortho was consulted for hip fracture repair. PMH: As above Allergies: NKDA Home medications: Diltiazem CD240 once a day, Eliquis 2.5 mg twice daily, famotidine 20 mg, finasteride 5 mg, memantine 5 mg twice daily, mirtazapine 45 mg, tamsulosin 0.4 mg Cardiology team consulted for cardiac clearance and patient does follow-up with Dr. Bravo as outpatient. Patient is admitted for acute displaced intertrochanteric fracture right femur post ground-level fall. Head CT and cervical spine x-ray was negative. Troponin I was negative. EKG showed A-fib with rate controlled pulse 92 bpm. QTc 447. Patient has stable hemoglobin. Chemistry panel is unremarkable. Kidney function stable. UA does show significant gross hematuria and pyuria. Recommendations as per primary care team. Patient was taking Cardizem CD 240 once a day for A-fib recommended to continue that and hold Eliquis for now given patient needs acute intertrochanteric fracture hip repair and continue restart Eliquis 2.5 mg 48 hours after surgery. Cardiology will follow the case closely. Ortho following the case for right hip fracture repair. Continue treatment for UTI with ceftriaxone. -we added lovenox 70 mgx1 for now and lovenox 70 mg for morning to bridge due to high risk of stroke. All labs and orders were reviewed. 03/30/2024: Patient was seen and examined at the bedside. Vitals stable. Labs revealed hemoglobin at 9.2. Platelet count 213. Chemistry panel was unremarkable. Patient was bridged with Lovenox yesterday due to high risk of stroke. Currently awaiting surgery scheduled on Thursday. Pt refused lovenox dose at night therefore lovenox 80 mgx1 ordered for morning. All labs and orders were reviewed. Exam Vital Signs Temp Pulse Resp BP Pulse Ox O2 Del Method 98.7 F 85 18 130/68 97 Room Air 03/30/24 12:00 03/30/24 12:00 03/30/24 12:00 03/30/24 12:00 03/30/24 12:00 03/30/24 12:00 Narrative Exam GENERAL APPEARANCE: AxOx3, generally well-appearing male in mild distress due to right hip pain. HEENT: NC, AT. MMM. EOMI, clear conjunctiva, oropharynx clear. NECK: Supple without lymphadenopathy. No stiffness or restricted ROM. HEART: irregular rate and rhythm, normal S1/S2, no m/r/g LUNGS: Bilateral mild decreased breath sounds on auscultation ABDOMEN: Soft, nontender, nondistended with good bowel sounds heard. EXTREMITIES: Patient's RLE is shortened and externally rotated. NEUROLOGICAL: Grossly nonfocal. Alert and orientedx3 CN not formally tested but appear grossly intact. Skin: Warm and dry without any rash. Psych: Appropriate mood and affect Objective Labs 03/30/24 04:48 03/30/24 04:48 Labs: Laboratory Results - last 24 hr 03/30/24 04:48 WBC 7.1 RBC 3.25 L Hgb 9.2 L D Hct 28.3 L D MCV 87 MCH 28.3 MCHC 32.5 RDW Std Deviation 49.8 H Plt Count 213 D Neut % (Auto) 81 H Lymph % (Auto) 13 [place] % (Auto) 6 Eos % (Auto) 0 Baso % (Auto) 0 Neut # (Auto) 5.7 Lymph # (Auto) 0.9 L [place] # (Auto) 0.4 Eos # (Auto) 0.0 Baso # (Auto) 0.0 Immature Gran # (Auto) 0.02 H Absolute Nucleated RBC 0.00 Immature Gran % 0 Nucleated RBC % 0 PT 12.0 INR 1.1 APTT 29.2 Sodium 138 Potassium 3.7 Chloride 109 H Carbon Dioxide 24.3 Anion Gap 5 L BUN 14 Creatinine 0.8 Estim Creat Clear Calc 62.0 eGFR > 60 BUN/Creatinine Ratio 18 Glucose 151 H Calculated Osmolality 279 Calcium 8.6 Corrected Calcium 8.9 Phosphorus 3.6 Magnesium 1.9 Total Bilirubin 0.7 AST 22 ALT 9 L Alkaline Phosphatase 74 D Total Protein 5.8 Albumin 3.6 D Globulin 2.2 L Albumin/Globulin Ratio 1.6 Quality Measures Quality Measures VTE prophylaxis (Eliquis on hold, Lovenox given for bridge) Advance care planning discussed with:: patient Assessment & Plan Assessment Current Active Medications: Generic Name Dose Route Start Last Admin Trade Name Freq PRN Reason Stop Dose Admin Acetaminophen 650 mg 03/29/24 09:16 Acetaminophen 325 Mg Tablet PO 04/28/24 09:15 Q6H PRN PAIN SCALE 1-3 (mild Hydrocodone Bitart/Acetaminophen 1 tab 03/29/24 09:16 03/30/24 12:04 Hydrocodone/Apap 5/325 Tablet PO 04/03/24 09:15 1 tab Q4HR PRN Administration PAIN SCALE 4-6 (Moderate Albuterol/Ipratropium 3 ml 03/29/24 09:18 Albuterol/Ipratropium (Duoneb) Rt Wilda 3 Ml Nebu INH 04/28/24 12:59 Q6HRRT PRN wheezing or SOB Diltiazem HCl 240 mg 03/29/24 13:30 03/30/24 08:17 Diltiazem Cd 120 Mg Capcr PO 04/28/24 13:29 240 mg QDAY CORETTA Administration Finasteride 5 mg 03/29/24 09:30 03/30/24 08:18 Finasteride 5 Mg Tablet PO 04/28/24 09:29 5 mg QDAY CORETTA Administration Ceftriaxone Sodium/Dextrose 50 mls @ 100 mls/hr 03/29/24 15:04 03/30/24 08:17 Rocephin/D5w 1gm Iv Premix IV 04/05/24 15:03 100 mls/hr QDAY CORETTA Administration Ondansetron HCl 4 mg 03/30/24 14:37 Ondansetron Inj 2 Mg/Ml Inj 2 Ml IV 04/28/24 09:15 Q4H PRN NAUSEA OR VOMITING Protocol Pantoprazole Sodium 40 mg 03/29/24 09:30 03/30/24 08:18 Pantoprazole Inj 40 Mg Vial IVP 04/28/24 09:29 40 mg QDAY CORETTA Administration Tamsulosin HCl 0.4 mg 03/29/24 09:30 03/30/24 08:18 Tamsulosin Hcl 0.4 Mg Capsule PO 04/28/24 09:29 0.4 mg QDAY CORETTA Administration Plan The patient is an 88-year-old male with past medical hx chronic persistent atrial fibrillation with EDGARDO score of 3 on eliquis 2.5 twice daily,HTN, 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 Admitted for right intratrochanteric fracture. # A-fib rate controlled ? [id number] of 5 ? Patient was taking diltiazem 240 CD once a day and Eliquis 2.5 mg twice daily. ? EKG showed A-fib with rate control. QTc 447. ? Echocardiogram from September 2023 showed No LA/ GABI thrombus and no PFO or ASD GABI measurements: 0?(diameter: 2.8cm/Depth 2.5cm.), 45?(diameter 2.5cm/Depth 2.6cm), 90?(diameter 2.5cm/Depth 2.7cm), 135?(diameter 2.6cm/Depth 2.8cm). Normal LV size and function. Estiamted EF 60-65%. Mild RV dilatation. Normal RV function. Severe biatrial dilatation. The acending aorta is mildly dilated. 3.6cm. Moderate MR, TR. Mild AI. -we added lovenox 70 mgx1 for now and lovenox 70 mg for morning to bridge due to high risk of stroke Plan: ? Pt refused lovenox dose at night therefore lovenox 80 mgx1 ordered for morning. ? Recommended to resume diltiazem 240 CD once a day ? Recommended to hold Eliquis given patient require hip fracture repair and recommended to restart 48 hours later postsurgery ? Continuous monitoring in telemetry ? Keep mag above 2 and potassium above 4 ? Daily labs ? Monitor for signs symptoms of chest pain and shortness of breath # History of hypertension ? Patient was recently discharged from the hospital in August 2023 after workup for stroke on Eliquis. Plan: ? Currently holding Eliquis for hip fracture. ? Continue statin therapy ? Monitor vitals ? Pain management as needed # Acute intertrochanteric fracture right hip ?Due to ground-level fall ? Ortho consulted and following the case. ? Pain management as needed # UTI #BPH #COPD #Chronic Bronchitis # History of cerebellar stroke multi infarction embolic phenomena due to A-fib on Eliquis # History of nephrolithiasis # Normocytic anemia # Hematuria and pyuria and UTI per urinalysis Rest of the management as per primary care team. Thank you very much for consulting cardiology team.Lovenox 80 mg x1 ordererd for morning. Recommended to continue Cardizem CD240 once a day and hold Eliquis for now for surgery. Resume Eliquis 2.5 mg 48 hours postsurgery. Awaiting surgery for intertrochanteric fracture right hip scheduled on Thursday. -- Plan of care discussed with electric trucker, Dr. Lawrence Silva MD, PGY 2
--- NOTE | 2024-03-30 17:27 | ESPR_ITS ---
<Statement entered by Segundo Orantes MD - 03/31/24 09:14> Senior Resident Attestation: I supervised/discussed management plan with business analyst intern physician Dr. Sue, and was involved in the care of this patient. I personally saw and examined the patient and discussed the assessment and plan with the entire medicine team, including my attending. I agree with the assessment and plan as documented. Patient's care was discussed with attending physician, Dr. Hansen. Segundo Orantes MD PGY-2. Documentation for date of: 03/30/24 Subjective Subjective Interval history: 03/30: No overnight events, patient is seen and examined at bedside. Patient states that he was not able to sleep all night and unable to tolerate food because of nausea and vomiting. 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 Patient denies pain he feels the pain is well-controlled but he is feeling very exhausted from all the vomiting. Discussed with patient plan for surgery on Thursday. Patient is concerned about his anticoagulation. I explained to the patient he will not be given any more anticoagulation, because surgery had requested to stop the Eliquis and Lovenox 48 hours prior to the surgery. Patient will be n.p.o. after midnight on 03/31/2024. Patient has no other complaints Exam Vital Signs Temp Pulse Resp BP Pulse Ox O2 Del Method 98.6 F 82 18 133/70 H 96 Room Air 03/30/24 16:00 03/30/24 16:00 03/30/24 16:00 03/30/24 16:00 03/30/24 16:00 03/30/24 16:00 Narrative Exam GENERAL: A&Ox3 . Awake, mildly in distress from pain, patient is actively vomiting NEURO: gore maker grossly intact, moves extremities x4 HEENT: Atraumatic, Normocephalic. mucous membranes moist. Eyes open, symmetrical, & clear HEART: Normal Heart Sounds LUNGS: Clear to auscultation with no wheezing or crackles. ABDOMEN: soft, non-distended, non-tender, bowel sounds heard, no guarding or rebound tenderness SKIN: No Rash or ecchymoses EXTREMITIES: No edema, tenderness over the right hip region Objective Labs 03/31/24 04:45 03/31/24 04:45 Labs: Laboratory Results - last 24 hr 03/30/24 04:48 WBC 7.1 RBC 3.25 L Hgb 9.2 L D Hct 28.3 L D MCV 87 MCH 28.3 MCHC 32.5 RDW Std Deviation 49.8 H Plt Count 213 D Neut % (Auto) 81 H Lymph % (Auto) 13 [place] % (Auto) 6 Eos % (Auto) 0 Baso % (Auto) 0 Neut # (Auto) 5.7 Lymph # (Auto) 0.9 L [place] # (Auto) 0.4 Eos # (Auto) 0.0 Baso # (Auto) 0.0 Immature Gran # (Auto) 0.02 H Absolute Nucleated RBC 0.00 Immature Gran % 0 Nucleated RBC % 0 PT 12.0 INR 1.1 APTT 29.2 Sodium 138 Potassium 3.7 Chloride 109 H Carbon Dioxide 24.3 Anion Gap 5 L BUN 14 Creatinine 0.8 Estim Creat Clear Calc 62.0 eGFR > 60 BUN/Creatinine Ratio 18 Glucose 151 H Calculated Osmolality 279 Calcium 8.6 Corrected Calcium 8.9 Phosphorus 3.6 Magnesium 1.9 Total Bilirubin 0.7 AST 22 ALT 9 L Alkaline Phosphatase 74 D Total Protein 5.8 Albumin 3.6 D Globulin 2.2 L Albumin/Globulin Ratio 1.6 Quality Measures Quality Measures VTE prophylaxis (Eliquis on hold) Advance care planning discussed with:: patient Assessment & Plan Assessment Current Active Medications: Generic Name Dose Route Start Last Admin Trade Name Freq PRN Reason Stop Dose Admin Acetaminophen 650 mg 03/29/24 09:16 Acetaminophen 325 Mg Tablet PO 04/28/24 09:15 Q6H PRN PAIN SCALE 1-3 (mild Hydrocodone Bitart/Acetaminophen 1 tab 03/29/24 09:16 03/30/24 12:04 Hydrocodone/Apap 5/325 Tablet PO 04/03/24 09:15 1 tab Q4HR PRN Administration PAIN SCALE 4-6 (Moderate Albuterol/Ipratropium 3 ml 03/29/24 09:18 Albuterol/Ipratropium (Duoneb) Rt Wilda 3 Ml Nebu INH 04/28/24 12:59 Q6HRRT PRN wheezing or SOB Diltiazem HCl 240 mg 03/29/24 13:30 03/30/24 08:17 Diltiazem Cd 120 Mg Capcr PO 04/28/24 13:29 240 mg QDAY CORETTA Administration Finasteride 5 mg 03/29/24 09:30 03/30/24 08:18 Finasteride 5 Mg Tablet PO 04/28/24 09:29 5 mg QDAY CORETTA Administration Ceftriaxone Sodium/Dextrose 50 mls @ 100 mls/hr 03/29/24 15:04 03/30/24 08:17 Rocephin/D5w 1gm Iv Premix IV 04/05/24 15:03 100 mls/hr QDAY CORETTA Administration Ondansetron HCl 4 mg 03/30/24 14:37 Ondansetron Inj 2 Mg/Ml Inj 2 Ml IV 04/28/24 09:15 Q4H PRN NAUSEA OR VOMITING Protocol Pantoprazole Sodium 40 mg 03/29/24 09:30 03/30/24 08:18 Pantoprazole Inj 40 Mg Vial IVP 04/28/24 09:29 40 mg QDAY CORETTA Administration Tamsulosin HCl 0.4 mg 03/29/24 09:30 03/30/24 08:18 Tamsulosin Hcl 0.4 Mg Capsule PO 04/28/24 09:29 0.4 mg QDAY CORETTA Administration Plan TMrCheng Navarrete is a 88-year-old male with past medical history significant of COPD, chronic bronchitis, asthma, A-fib, BPH, history of skin cancer status post radiation and recurrent kidney stones presents to the ED after a ground-level fall. Imaging revealed right hip fracture. # Acute intertrochanteric fracture right hip ?Due to ground-level fall -Hip/pelvis x-ray- Acute angulated intertrochanteric fracture right hip. -Cervical spine CT-no acute cervical fracture. 6 mm sclerotic focus in the C7 vertebral body, differential would include osteoblastic metastasis. -Head CT was negative for acute hemorrhage, mass effect or midline shift. -Hip CT- Acute comminuted angulated intertrochanteric fracture right hip -Femur x-ray- Acute intertrochanteric fracture right hip Plan: ? Ortho consulted Dr. Lundberg plans to do surgery on sunday 04/01 ? Pain management - [place] PRN Q4H -D/c Eliquis and all anticoagulation #Nausea vomiting likely medication induced -Patient received morphine every 4 hours for the management of pain from hip fracture -DC'd morphine, [place]er ordered -Zofran every 4 hours as needed #UTI #pyuria -On urinalysis leukocyte esterase positive, urine WBC 80 -Patient denies dysuria and urinary urgency plan: -Ceftriaxone 1 g daily started 03/29- -monitor daily CBC # A-fib rate controlled ? [id number] of 5 ? Patient was taking diltiazem 240 CD once a day and Eliquis 2.5 mg twice daily. ? EKG showed A-fib with rate control. QTc 447. ? Echocardiogram from September 2023 -Estiamted EF 60-65%. Mild RV dilatation. Severe biatrial dilatation. The acending aorta is mildly dilated. 3.6cm. Moderate MR, TR. Mild AI. Plan: -Patient's business attorney is Dr. Bravo, consulted with the following recommendations ? resume diltiazem 240 CD once a day ? Recommended to hold Eliquis given patient require hip fracture repair and recommended to restart 48 hours later postsurgery ? Continuous monitoring in telemetry ? Keep mag above 2 and potassium above 4 ? Daily labs ? Monitor for signs symptoms of chest pain and shortness of breath Abnormal CT findings -6 mm sclerotic focus in the C7 vertebral body, differential would include osteoblastic metastasis. Other problems # History of nephrolithiasis # Hematuria #BPH #COPD #Chronic Bronchitis -Patient is being followed by Dr. Hanna -Per patient patient continues to refuse for surgical treatment of nephrolithiasis plan: -Outpatient follow-up with urologist -Resume home tamsulosin and silodosin Disposition: Medsurg- awaiting surgery on sunday 04/01 DVT Prophylaxis: no anticoaglated as pt. will be getting surgery. He received 2 doses of levonox on 03/29 and 03/30 GI Prophylaxis: Pantoprozol-40 IV Diet: NPO on 03/31 after midnight Code status: Full/ DNR Assessment and plan discussed with my senior resident Dr. Orantes & attending physician Dr. Tyrone Sue (PGY-1)- Internal medicine resident Attending Provider Attestation/Addendum 88-year-old male with multiple comorbidities including COPD, atrial fibrillation on anticoagulation and skin cancer s/p radiation who presented to the ER with ground-level fall found to have acute right intertrochanteric hip fracture and subsequently admitted pending orthopedic evaluation. Will continue holding off Eliquis for A-fib and plan to consult cardiology for cardiac clearance. In addition, CT head noted 6 mm sclerotic focus in the C7 vertebral body which we updated the patient that this could be malignancy and recommended outpatient workup and patient and family in agreement. Patient is pending orthopedic evaluation. I reviewed above note and agree with findings and plans. I have also personally examined the patient with medicine team and went over assessment and plan with medical team including business analyst intern and resident physician.
--- NOTE | 2024-03-30 18:13 | PC.NURSE ---
Tried to do med rec on patient son, and patient did not know exactly the dose of medication. All were contradicting themselves and family started arguing. Patient does not want morphine. He takes norco at home. I recommended family to bring in medications so we can continue all home medications for patient. Will continue to monitor patient.
[2024-03-30] MEDS: METOCLOPRAMIDE INJ 5 MG/ML VIAL 2 ML 10 MG IVP (19:53)
--- NOTE | 2024-03-30 19:55 | EKG_ITS ---
[facility] Test Date: 2024-03-30 Pat Name: MARY GARRISON [facility] Director Of Engineering: JEANNE : 1935 Requested By: Jc Hernadez Order Number: [id number] Reading MD: Jc Hernadez Measurements Intervals [place] Rate: 134 P: [place]: QRS: 20 QRSD: 83 T: -30 QT: 307 QTc: 460 Interpretive Statements ATRIAL FIBRILLATION WITH RAPID VENTRICULAR RESPONSE POSSIBLE INFERIOR MYOCARDIAL INFARCTION , PROBABLY OLD [30 ms Q WAVE IN II/aVF] ABNORMAL RHYTHM ECG Compared to ECG 03/29/2024 05:19:59 Myocardial infarct finding now present T-wave abnormality no longer present /store/S0/[id number].pdf
--- NOTE | 2024-03-30 19:59 | PD.RESEVENT ---
Documentation for date of: 03/30/24 Event Note Event Note: Rapid response called at approximately 7:50 PM for HR up to 170s with other vitals BP 123/88, RR 20, O2 93% on RA. At bedside, patient was resting comfortably, denying chest pain, palpitations, but does endorse shortness of breath (may be his baseline) and some nausea. EKG obtained and showed a-fib RVR with HR 134. Ordered diltiazem 10 mg IVP, but not available on med srug. Thus, plans made to transfer patient to telemetry and diltiazem given with improvement of HR to 110s.
[2024-03-30] MEDS: DILTIAZEM INJ 5 MG/ML VIAL 5 ML 10 MG IV (20:20)
[2024-03-31] VITALS (10 sets, daily range): BP systolic 97–159; BP diastolic 59–87; PULSE 64–125; RESP 11–22; TEMP 36.5–37.6; O2SAT 95–100
[2024-03-31] MEDS: ONDANSETRON INJ 2 MG/ML INJ 2 ML 4 MG IV (04:29)
[2024-03-31 06:18] LABS: Basophils % (Auto) 0 % (0-2.5); Eosinophils % (Auto) 0 % (0-10); Hematocrit 30.6 % (41.0-53.0); Hemoglobin 9.9 g/dL (13.5-16.0); Immature Granulocytes % (Auto) 1 % (0-0); Immature Granulocytes Auto 0.05 Thou/mm3 (0.00-0.00); Lymphocytes # (Auto) 0.8 Thou/mm3 (1.0-4.8); Lymphocytes % (Auto) 7 % (10-50); Mean Corpuscular HGB Conc 32.4 g/dl (31.0-37.0); Mean Corpuscular Volume 87 fL (80-100); Monocytes # (Auto) 0.4 Thou/mm3 (0.0-0.8); Monocytes % (Auto) 4 % (0-12); Neutrophils # (Auto) 9.4 Thou/mm3 (1.8-7.7); Neutrophils % (Auto) 89 % (37-80); Nucleated Red Blood Cell % 0 /100 WBC (0); Platelet Count 247 Thou/mm3 (140-440); Red Blood Count 3.53 Miln/mm3 (4.50-5.90); White Blood Count 10.6 Thou/mm3 (3.8-10.6)
[2024-03-31 07:03] LABS: Alanine Aminotransferase 10 U/L (10-49); Albumin, Serum 4.2 gm/dL (3.4-4.8); Albumin/Globulin Ratio 1.6 (1.2-2.2); Alkaline Phosphatase 78 U/L (46-116); Anion Gap 9 (7-16); Aspartate Amino Transferase 22 U/L (0-34); BUN/Creatinine Ratio 23 Ratio (12-20); Bilirubin,Total 0.6 mg/dL (0.3-1.2); Blood Urea Nitrogen 21 mg/dL (9-23); Calcium 9.4 mg/dL (8.3-10.6); Calcium (Corrected) 9.4 mg/dL (8.5-10.1); Carbon Dioxide 25.8 mMol/L (20.0-31.0); Chloride 106 mMol/L (98-107); Creatinine (Component) 0.9 mg/dL (0.6-1.3); Estimated Creatinine Clearance 53.2 mL/min (>60); Globulin 2.6 gm/dL (2.3-3.5); Glucose 179 mg/dL (74-106); Osmolality,Calculated 288 (275-295); Potassium 3.6 mMol/L (3.4-5.1); Sodium 141 mMol/L (136-145); Total Protein 6.8 gm/dL (5.7-8.2); eGFR > 60 See Note
[2024-03-31] MEDS: FINASTERIDE 5 MG TABLET PO (08:56)
[2024-03-31] MEDS: PANTOPRAZOLE INJ 40 MG VIAL IVP (08:56)
[2024-03-31] MEDS: cefTRIAXone/D5w 1gm IV premix 50 ML IV (08:56)
[2024-03-31] MEDS: DILTIAZEM CD 120 MG CAPCR 240 MG PO (08:56)
[2024-03-31] MEDS: TAMSULOSIN HCL 0.4 MG CAPSULE PO (08:57)
[2024-03-31] MEDS: ENOXAPARIN SOD INJ 80 MG/0.8 ML SYRINGE SC (09:12)
[2024-03-31 10:01] LABS: Magnesium 2.2 mg/dL (1.6-2.6)
[2024-03-31] MEDS: POLYETHYLENE GLYCOL 17 GM PACKET PO (10:26)
--- NOTE | 2024-03-31 12:06 | PC.SS ---
NICOLETTE LVL1 submitted and downloaded
--- NOTE | 2024-03-31 12:26 | PC.SS ---
SNF referral submitted via GLORIA ENAMORADO identified as pts preference
--- NOTE | 2024-03-31 14:23 | ESPR_ITS ---
<Statement entered by Cedric Bravo MD - 04/03/24 12:53> I personally examined the patient and reviewed all the findings in detail have known him for several years alongside history of A-fib hypertension multiple medical problems admitted hospital fracture of the hip continues to feel well better now but waiting for surgery tomorrow continues to improve A-fib rate controlled well. Given cardiac clearance for surgery. I evaluated all essential complaints and the progress report as documented by PGY 2 Dr. 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 Patient fell in the bathroom and lost his balance and landed on his right leg. Has been complaining of right hip pain and inability to move his right lower extremity. He also endorsed hitting his head but denied any loss of consciousness. Endorses nausea. Denied any dizziness, lightheadedness, nausea, vomiting, chest pain, shortness of breath., Abdominal pain or any other complaints. In the ED, patient was vitally stable. Labs revealed stable hemoglobin at 12.5. Chemistry panel was unremarkable. Kidney function stable with creatinine at 1.0. Troponin I was negative. Urine analysis showed trace proteinuria and blood 3+ with RBCs 4697 and WBC 80s with positive leukocyte esterase. U tox was negative. Pending urine culture. CT head was negative for any acute changes. CT cervical spine was negative for fracture. CT scan of the right hip showed acute displaced intertrochanteric fracture of right femur. Ortho was consulted for hip fracture repair. PMH: As above Allergies: NKDA Home medications: Diltiazem CD240 once a day, Eliquis 2.5 mg twice daily, famotidine 20 mg, finasteride 5 mg, memantine 5 mg twice daily, mirtazapine 45 mg, tamsulosin 0.4 mg Cardiology team consulted for cardiac clearance and patient does follow-up with Dr. Bravo as outpatient. Patient is admitted for acute displaced intertrochanteric fracture right femur post ground-level fall. Head CT and cervical spine x-ray was negative. Troponin I was negative. EKG showed A-fib with rate controlled pulse 92 bpm. QTc 447. Patient has stable hemoglobin. Chemistry panel is unremarkable. Kidney function stable. UA does show significant gross hematuria and pyuria. Recommendations as per primary care team. Patient was taking Cardizem CD 240 once a day for A-fib recommended to continue that and hold Eliquis for now given patient needs acute intertrochanteric fracture hip repair and continue restart Eliquis 2.5 mg 48 hours after surgery. Cardiology will follow the case closely. Ortho following the case for right hip fracture repair. Continue treatment for UTI with ceftriaxone. -we added lovenox 70 mgx1 for now and lovenox 70 mg for morning to bridge due to high risk of stroke. All labs and orders were reviewed. 03/30/2024: Patient was seen and examined at the bedside. Vitals stable. Labs revealed hemoglobin at 9.2. Platelet count 213. Chemistry panel was unremarkable. Patient was bridged with Lovenox yesterday due to high risk of stroke. Currently awaiting surgery scheduled on Thursday. Pt refused lovenox dose at night therefore lovenox 80 mgx1 ordered for morning. All labs and orders were reviewed. 03/31/2024: Patient was seen and examined at the bedside. Overnight rapid response was called due to A-fib with RVR heart rate in 170s night team administered Cardizem 10 mg IV x 1 and heart rate dropped to 110s. Currently on Cardizem CD 240 once a day. Morning labs revealed stable hemoglobin at 9.9. Chemistry panel was unremarkable. Kidney functions stable. MRSA screen negative. Patient received Lovenox in the morning. Awaiting surgery for tomorrow for hip fracture. All labs and orders were reviewed. Exam Vital Signs Temp Pulse Resp BP Pulse Ox O2 Del Method 99.6 F 101 H 16 117/75 97 Room Air 03/31/24 12:00 03/31/24 12:00 03/31/24 12:00 03/31/24 12:00 03/31/24 12:00 03/31/24 12:00 Narrative Exam GENERAL APPEARANCE: AxOx3, generally well-appearing male in mild distress due to right hip pain. HEENT: NC, AT. MMM. EOMI, clear conjunctiva, oropharynx clear. NECK: Supple without lymphadenopathy. No stiffness or restricted ROM. HEART: irregular rate and rhythm, normal S1/S2, no m/r/g LUNGS: Bilateral mild decreased breath sounds on auscultation ABDOMEN: Soft, nontender, nondistended with good bowel sounds heard. EXTREMITIES: Patient's RLE is shortened and externally rotated. NEUROLOGICAL: Grossly nonfocal. Alert and orientedx3 CN not formally tested but appear grossly intact. Skin: Warm and dry without any rash. Psych: Appropriate mood and affect Objective Labs 03/31/24 04:45 03/31/24 04:45 Labs: Laboratory Results - last 24 hr 03/31/24 04:45 WBC 10.6 D RBC 3.53 L Hgb 9.9 L Hct 30.6 L MCV 87 MCH 28.0 MCHC 32.4 RDW Std Deviation 50.0 H Plt Count 247 D Neut % (Auto) 89 H Lymph % (Auto) 7 L Tyrrell % (Auto) 4 Eos % (Auto) 0 Baso % (Auto) 0 Neut # (Auto) 9.4 H Lymph # (Auto) 0.8 L [place]rell # (Auto) 0.4 Eos # (Auto) 0.0 Baso # (Auto) 0.0 Immature Gran # (Auto) 0.05 H Absolute Nucleated RBC 0.00 Immature Gran % 1 H Nucleated RBC % 0 Sodium 141 Potassium 3.6 Chloride 106 Carbon Dioxide 25.8 Anion Gap 9 BUN 21 Creatinine 0.9 Estim Creat Clear Calc 53.2 L eGFR > 60 BUN/Creatinine Ratio 23 H Glucose 179 H Calculated Osmolality 288 Calcium 9.4 Corrected Calcium 9.4 Magnesium 2.2 Total Bilirubin 0.6 AST 22 ALT 10 Alkaline Phosphatase 78 Total Protein 6.8 Albumin 4.2 D Globulin 2.6 Albumin/Globulin Ratio 1.6 Quality Measures Quality Measures VTE prophylaxis (Eliquis on hold, Lovenox given for bridge) Advance care planning discussed with:: patient Assessment & Plan Assessment Current Active Medications: Generic Name Dose Route Start Last Admin Trade Name Freq PRN Reason Stop Dose Admin Acetaminophen 650 mg 03/29/24 09:16 Acetaminophen 325 Mg Tablet PO 04/28/24 09:15 Q6H PRN PAIN SCALE 1-3 (mild Hydrocodone Bitart/Acetaminophen 1 tab 03/29/24 09:16 03/30/24 12:04 Hydrocodone/Apap 5/325 Tablet PO 04/03/24 09:15 1 tab Q4HR PRN Administration PAIN SCALE 4-6 (Moderate Albuterol/Ipratropium 3 ml 03/29/24 09:18 Albuterol/Ipratropium (Duoneb) Rt Wilda 3 Ml Nebu INH 04/28/24 12:59 Q6HRRT PRN wheezing or SOB Diltiazem HCl 240 mg 03/29/24 13:30 03/31/24 08:56 Diltiazem Cd 120 Mg Capcr PO 04/28/24 13:29 240 mg QDAY CORETTA Administration Finasteride 5 mg 03/29/24 09:30 03/31/24 08:56 Finasteride 5 Mg Tablet PO 04/28/24 09:29 5 mg QDAY CORETTA Administration Ceftriaxone Sodium/Dextrose 50 mls @ 100 mls/hr 03/29/24 15:04 03/31/24 09:26 Rocephin/D5w 1gm Iv Premix IV 04/05/24 15:03 Infused QDAY CORETTA Infusion Ondansetron HCl 4 mg 03/30/24 14:37 03/31/24 04:29 Ondansetron Inj 2 Mg/Ml Inj 2 Ml IV 04/28/24 09:15 4 mg Q4H PRN Administration NAUSEA OR VOMITING Protocol Pantoprazole Sodium 40 mg 03/29/24 09:30 03/31/24 08:56 Pantoprazole Inj 40 Mg Vial IVP 04/28/24 09:29 40 mg QDAY CORETTA Administration Tamsulosin HCl 0.4 mg 03/29/24 09:30 03/31/24 08:57 Tamsulosin Hcl 0.4 Mg Capsule PO 04/28/24 09:29 0.4 mg QDAY [place]ETTA Administration Plan The patient is an 88-year-old male with past medical hx chronic persistent atrial fibrillation with EDGARDO score of 3 on eliquis 2.5 twice daily,HTN, 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 Admitted for right intratrochanteric fracture. # A-fib rate controlled ? [id number] of 5 ? Patient was taking diltiazem 240 CD once a day and Eliquis 2.5 mg twice daily. ? EKG showed A-fib with rate control. QTc 447. ? Echocardiogram from September 2023 showed No LA/ GABI thrombus and no PFO or ASD GABI measurements: 0?(diameter: 2.8cm/Depth 2.5cm.), 45?(diameter 2.5cm/Depth 2.6cm), 90?(diameter 2.5cm/Depth 2.7cm), 135?(diameter 2.6cm/Depth 2.8cm). Normal LV size and function. Estiamted EF 60-65%. Mild RV dilatation. Normal RV function. Severe biatrial dilatation. The acending aorta is mildly dilated. 3.6cm. Moderate MR, TR. Mild AI. -we added lovenox 70 mgx1 for now and lovenox 70 mg for morning to bridge due to high risk of stroke ?Rapid response was called last night due to A-fib with RVR night team gave Cardizem 10 mg IV x 1 and currently rate controlled Plan: ? Awaiting right hip fracture surgery for tomorrow Ortho following the case ? Lovenox 80 mgx1 today in the morning. ? Recommended to resume diltiazem 240 CD once a day ? Recommended to hold Eliquis given patient require hip fracture repair and recommended to restart 48 hours later postsurgery ? Continuous monitoring in telemetry ? Keep mag above 2 and potassium above 4 ? Daily labs ? Monitor for signs symptoms of chest pain and shortness of breath # History of hypertension ? Patient was recently discharged from the hospital in August 2023 after workup for stroke on Eliquis. Plan: ? Currently holding Eliquis for hip fracture. ? Continue statin therapy ? Monitor vitals ? Pain management as needed # Acute intertrochanteric fracture right hip ?Due to ground-level fall ? Ortho consulted and following the case. ? Pain management as needed # UTI #BPH #COPD #Chronic Bronchitis # History of cerebellar stroke multi infarction embolic phenomena due to A-fib on Eliquis # History of nephrolithiasis # Normocytic anemia # Hematuria and pyuria and UTI per urinalysis Rest of the management as per primary care team. Thank you very much for consulting cardiology team.Lovenox 80 mg x1 administrated in morning. Recommended to continue Cardizem CD240 once a day and hold Eliquis for now for surgery. Resume Eliquis 2.5 mg 48 hours postsurgery. Awaiting surgery for intertrochanteric fracture right hip scheduled tomorrow. -- Plan of care discussed with supervisor meter shop, Dr. Lawrence Silva MD, PGY 2
--- NOTE | 2024-03-31 15:41 | PD.RESPRO ---
Documentation for date of: 03/31/24 Subjective Subjective Interval history: 03/30: No overnight events, patient is seen and examined at bedside. Patient states that he was not able to sleep all night and unable to tolerate food because of nausea and vomiting. Patient states that he has been vomiting early morning babysitter and he has been very very nauseous. Patient denies pain he feels the pain is well-controlled but he is feeling very exhausted from all the vomiting. Discussed with patient plan for surgery on Thursday. Patient is concerned about his anticoagulation. I explained to the patient he will not be given any more anticoagulation, because surgery had requested to stop the Eliquis and Lovenox 48 hours prior to the surgery. Patient will be n.p.o. after midnight on 03/31/2024. Patient has no other complaints 03/31: Overnight patient had rapid response due to patient's heart rate in 170s, patient EKG showed A-fib with RVR. 19 administer diltiazem 10 mg and patient was transferred to telemetry. Patient is seen and examined at bedside this morning. Currently, patient is saturating on room air he endorses significant improvement in nausea vomiting. Patient states that he is still mildly nauseous. Patient denies any pain. Patient is explained that he will receive 1 more dose of Lovenox today because he is a high risk for stroke. Patient also says states that he has not had a bowel movement since hospitalization. Patient also states that he was able to tolerate food better and ate most of his breakfast. Patient is eagerly waiting for his surgery. Exam Vital Signs Temp Pulse Resp BP Pulse Ox O2 Del Method 99.6 F 101 H 16 117/75 97 Room Air 03/31/24 12:00 03/31/24 12:00 03/31/24 12:00 03/31/24 12:00 03/31/24 12:00 03/31/24 12:00 Narrative Exam GENERAL: A&Ox3 . Awake, mildly in distress from pain NEURO: group insurance specialist grossly intact, moves extremities x4 HEENT: Atraumatic, Normocephalic. mucous membranes moist. Eyes open, symmetrical, & clear HEART: Normal Heart Sounds LUNGS: Clear to auscultation with no wheezing or crackles. ABDOMEN: soft, non-distended, non-tender, bowel sounds heard, no guarding or rebound tenderness SKIN: No Rash or ecchymoses EXTREMITIES: No edema, tenderness over the right hip region Objective Labs 03/31/24 04:45 03/31/24 04:45 Labs: Laboratory Results - last 24 hr 03/31/24 04:45 WBC 10.6 D RBC 3.53 L Hgb 9.9 L Hct 30.6 L MCV 87 MCH 28.0 MCHC 32.4 RDW Std Deviation 50.0 H Plt Count 247 D Neut % (Auto) 89 H Lymph % (Auto) 7 L Cherry % (Auto) 4 Eos % (Auto) 0 Baso % (Auto) 0 Neut # (Auto) 9.4 H Lymph # (Auto) 0.8 L Cherry # (Auto) 0.4 Eos # (Auto) 0.0 Baso # (Auto) 0.0 Immature Gran # (Auto) 0.05 H Absolute Nucleated RBC 0.00 Immature Gran % 1 H Nucleated RBC % 0 Sodium 141 Potassium 3.6 Chloride 106 Carbon Dioxide 25.8 Anion Gap 9 BUN 21 Creatinine 0.9 Estim Creat Clear Calc 53.2 L eGFR > 60 BUN/Creatinine Ratio 23 H Glucose 179 H Calculated Osmolality 288 Calcium 9.4 Corrected Calcium 9.4 Magnesium 2.2 Total Bilirubin 0.6 AST 22 ALT 10 Alkaline Phosphatase 78 Total Protein 6.8 Albumin 4.2 D Globulin 2.6 Albumin/Globulin Ratio 1.6 Quality Measures Quality Measures VTE prophylaxis (Eliquis on hold, Lovenox given for bridge) Advance care planning discussed with:: patient Assessment & Plan Assessment Current Active Medications: Generic Name Dose Route Start Last Admin Trade Name Freq PRN Reason Stop Dose Admin Acetaminophen 650 mg 03/29/24 09:16 Acetaminophen 325 Mg Tablet PO 04/28/24 09:15 Q6H PRN PAIN SCALE 1-3 (mild Hydrocodone Bitart/Acetaminophen 1 tab 03/29/24 09:16 03/30/24 12:04 Hydrocodone/Apap 5/325 Tablet PO 04/03/24 09:15 1 tab Q4HR PRN Administration PAIN SCALE 4-6 (Moderate Albuterol/Ipratropium 3 ml 03/29/24 09:18 Albuterol/Ipratropium (Duoneb) Rt Wilda 3 Ml Nebu INH 04/28/24 12:59 Q6HRRT PRN wheezing or SOB Diltiazem HCl 240 mg 03/29/24 13:30 03/31/24 08:56 Diltiazem Cd 120 Mg Capcr PO 04/28/24 13:29 240 mg QDAY CORETTA Administration Finasteride 5 mg 03/29/24 09:30 03/31/24 08:56 Finasteride 5 Mg Tablet PO 04/28/24 09:29 5 mg QDAY CORETTA Administration Ceftriaxone Sodium/Dextrose 50 mls @ 100 mls/hr 03/29/24 15:04 03/31/24 09:26 Rocephin/D5w 1gm Iv Premix IV 04/05/24 15:03 Infused QDAY CORETTA Infusion Ondansetron HCl 4 mg 03/30/24 14:37 03/31/24 04:29 Ondansetron Inj 2 Mg/Ml Inj 2 Ml IV 04/28/24 09:15 4 mg Q4H PRN Administration NAUSEA OR VOMITING Protocol Pantoprazole Sodium 40 mg 03/29/24 09:30 03/31/24 08:56 Pantoprazole Inj 40 Mg Vial IVP 04/28/24 09:29 40 mg QDAY CORETTA Administration Tamsulosin HCl 0.4 mg 03/29/24 09:30 03/31/24 08:57 Tamsulosin Hcl 0.4 Mg Capsule PO 04/28/24 09:29 0.4 mg QDAY CORETTA Administration Plan TMrCheng Navarrete is a 88-year-old male with past medical history significant of COPD, chronic bronchitis, asthma, A-fib, BPH, history of skin cancer status post radiation and recurrent kidney stones presents to the ED after a ground-level fall. Imaging revealed right hip fracture. # Acute intertrochanteric fracture right hip ?Due to ground-level fall -Hip/pelvis x-ray- Acute angulated intertrochanteric fracture right hip. -Cervical spine CT-no acute cervical fracture. 6 mm sclerotic focus in the C7 vertebral body, differential would include osteoblastic metastasis. -Head CT was negative for acute hemorrhage, mass effect or midline shift. -Hip CT- Acute comminuted angulated intertrochanteric fracture right hip -Femur x-ray- Acute intertrochanteric fracture right hip Plan: ? Ortho consulted Dr. Lundberg plans to do surgery on sunday 04/01 ? Pain management - [place] PRN Q4H -D/c Eliquis and all anticoagulation # A-fib rate controlled ? [id number] of 5 ? resume gomw diltiazem 240 CD once a day and -Hold Eliquis 2.5 mg twice daily (used levonox for bridging) ? EKG showed A-fib with rate control. QTc 447. ? Echocardiogram from September 2023 -Estiamted EF 60-65%. Mild RV dilatation. Severe biatrial dilatation. The acending aorta is mildly dilated. 3.6cm. Moderate MR, TR. Mild AI. Plan: -Patient's manager telecom is Dr. Bravo, consulted with the following recommendations ? resume diltiazem 240 CD once a day ? Recommended to hold Eliquis given patient require hip fracture repair and recommended to restart 48 hours later postsurgery ? Continuous monitoring in telemetry ? Keep mag above 2 and potassium above 4 ? Daily labs ? Monitor for signs symptoms of chest pain and shortness of breath #Nausea vomiting likely medication induced -Patient received morphine every 4 hours for the management of pain from hip fracture -DC'd morphine, [place] ordered -Zofran every 4 hours as needed #UTI #pyuria -On urinalysis leukocyte esterase positive, urine WBC 80 -Patient denies dysuria and urinary urgency plan: -Ceftriaxone 1 g daily started 03/29- -monitor daily CBC Abnormal CT findings -6 mm sclerotic focus in the C7 vertebral body, differential would include osteoblastic metastasis. -Patient is notified to follow-up outpatient with PCP recommendations Other problems # History of nephrolithiasis # Hematuria #BPH #COPD #Chronic Bronchitis -Patient is being followed by Dr. Hanna -Per patient patient continues to refuse for surgical treatment of nephrolithiasis plan: -Outpatient follow-up with urologist -Resume home tamsulosin and silodosin Disposition: Medsurg- awaiting surgery on sunday 04/01 DVT Prophylaxis: no anticoaglated as pt. will be getting surgery. He received 2 doses of levonox on 03/29, 03/30 and 03/31 GI Prophylaxis: Pantoprozol-40 IV Diet: NPO on 03/31 after midnight Code status: Full Assessment and plan discussed with my senior resident Dr. Orantes & attending physician Dr. Tyrone Sue (PGY-1)- Internal medicine resident Attending Provider Attestation/Addendum 88-year-old male with multiple comorbidities including COPD, atrial fibrillation on anticoagulation and skin cancer s/p radiation who presented to the ER with ground-level fall found to have acute right intertrochanteric hip fracture and subsequently admitted pending orthopedic evaluation. Will continue holding off Eliquis for A-fib and plan to consult cardiology for cardiac clearance. In addition, CT head noted 6 mm sclerotic focus in the C7 vertebral body which we updated the patient that this could be malignancy and recommended outpatient workup and patient and family in agreement. Patient was evaluated by orthopedic team and plan for surgical intervention on 04/01/2024. Appreciate cardiology input. I reviewed above note and agree with findings and plans. I have also personally examined the patient with medicine team and went over assessment and plan with medical team including internal medicine veterinary technician and resident physician.
[2024-03-31 18:22] LABS: Basophils % (Auto) 0 % (0-2.5); Eosinophils % (Auto) 0 % (0-10); Hematocrit 27.6 % (41.0-53.0); Immature Granulocytes % (Auto) 1 % (0-0); Immature Granulocytes Auto 0.06 Thou/mm3 (0.00-0.00); Lymphocytes % (Auto) 8 % (10-50); Mean Corpuscular HGB Conc 32.6 g/dl (31.0-37.0); Mean Corpuscular Hemoglobin 28.5 pg (25.0-35.0); Mean Corpuscular Volume 87 fL (80-100); Monocytes # (Auto) 0.9 Thou/mm3 (0.0-0.8); Monocytes % (Auto) 7 % (0-12); Neutrophils # (Auto) 10.9 Thou/mm3 (1.8-7.7); Neutrophils % (Auto) 85 % (37-80); Nucleated Red Blood Cell % 0 /100 WBC (0); Platelet Count 225 Thou/mm3 (140-440); RDW Standard Deviation 50.3 fL (35.1-43.9); Red Blood Count 3.16 Miln/mm3 (4.50-5.90); White Blood Count 12.9 Thou/mm3 (3.8-10.6)
[2024-04-01] VITALS (21 sets, daily range): BP systolic 101–120; BP diastolic 53–69; PULSE 76–108; RESP 12–27; TEMP 36.2–37.3; O2SAT 95–98; BMI 12.0
[2024-04-01 06:13] LABS: Basophils % (Auto) 0 % (0-2.5); Eosinophils % (Auto) 0 % (0-10); Hematocrit 26.4 % (41.0-53.0); Immature Granulocytes % (Auto) 0 % (0-0); Immature Granulocytes Auto 0.04 Thou/mm3 (0.00-0.00); Lymphocytes % (Auto) 11 % (10-50); Mean Corpuscular HGB Conc 32.2 g/dl (31.0-37.0); Mean Corpuscular Volume 87 fL (80-100); Monocytes # (Auto) 0.8 Thou/mm3 (0.0-0.8); Monocytes % (Auto) 9 % (0-12); Neutrophils # (Auto) 7.3 Thou/mm3 (1.8-7.7); Neutrophils % (Auto) 80 % (37-80); Nucleated Red Blood Cell % 0 /100 WBC (0); Platelet Count 217 Thou/mm3 (140-440); Red Blood Count 3.04 Miln/mm3 (4.50-5.90); White Blood Count 9.1 Thou/mm3 (3.8-10.6)
[2024-04-01 06:14] LABS: Hemoglobin 8.5 g/dL (13.5-16.0)
[2024-04-01 06:41] LABS: Alanine Aminotransferase 10 U/L (10-49); Albumin, Serum 3.6 gm/dL (3.4-4.8); Albumin/Globulin Ratio 1.6 (1.2-2.2); Alkaline Phosphatase 64 U/L (46-116); Anion Gap 6 (7-16); Aspartate Amino Transferase 20 U/L (0-34); BUN/Creatinine Ratio 34 Ratio (12-20); Bilirubin,Total 0.5 mg/dL (0.3-1.2); Blood Urea Nitrogen 27 mg/dL (9-23); Calcium 8.7 mg/dL (8.3-10.6); Carbon Dioxide 27.3 mMol/L (20.0-31.0); Chloride 103 mMol/L (98-107); Creatinine (Component) 0.8 mg/dL (0.6-1.3); Estimated Creatinine Clearance 59.8 mL/min (>60); Globulin 2.2 gm/dL (2.3-3.5); Glucose 125 mg/dL (74-106); Osmolality,Calculated 278 (275-295); Phosphorous 2.7 mg/dL (2.4-5.1); Potassium 3.6 mMol/L (3.4-5.1); Sodium 136 mMol/L (136-145); Total Protein 5.8 gm/dL (5.7-8.2); eGFR > 60 See Note
[2024-04-01] MEDS: MORPHINE SULF INJ 10 MG/ML VIAL 2 MG IVP (07:46)
[2024-04-01] MEDS: ONDANSETRON INJ 2 MG/ML INJ 2 ML 4 MG IV (07:46)
--- NOTE | 2024-04-01 08:45 | XR_ITS ---
Examination: AP lateral right hip 2 views AP right femur single view Fluoroscopy Exam date and time: April 01, 2024 1045 hours INDICATIONS: Acute intertrochanteric fracture right hip March 29, 2024, operative reduction internal fixation right hip fracture today TECHNIQUE AND FINDINGS: Operative reduction internal fixation right hip fracture with satisfactory alignment Intramedullary jone exhibit satisfactory position relative to the femoral shaft Fluoroscopy 84 seconds radiation dose 5.49 milligray 3 spot fluoroscopic images IMPRESSION: Operative reduction internal fixation right hip fracture with satisfactory alignment
--- NOTE | 2024-04-01 09:11 | PC.SS ---
SS contacted patient's daughter, Temitope and informed her that auth was pending to [facility]. Cadence expressed she would like to tour [facility]. SS contacted Admin, Mahsa and she informed SS that they could tour [facility] at 9:30-9:45. SS contacted Cadence and she is agreeable and heading to [facility].
--- NOTE | 2024-04-01 09:54 | ESPR_ITS ---
<Statement entered by Cedric Bravo MD - 04/03/24 13:01> I personally examined the patient underwent successful open reduction total fixation of the hip by orthopedic surgery doing much better postoperatively no cardiac arrhythmias no shortness of or chest pain remains in A-fib rate controlled well. I evaluated the patient in detail along with resident physician agree with the treatment plan recommendations will resume the Eliquis 48 hours after surgery patient normally takes only 2.5 mg generally once a day sometimes twice a day depending on the bleeding issues agree with the treatment plan recommendation as documented by Dr. 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 Patient fell in the bathroom and lost his balance and landed on his right leg. Has been complaining of right hip pain and inability to move his right lower extremity. He also endorsed hitting his head but denied any loss of consciousness. Endorses nausea. Denied any dizziness, lightheadedness, nausea, vomiting, chest pain, shortness of breath., Abdominal pain or any other complaints. In the ED, patient was vitally stable. Labs revealed stable hemoglobin at 12.5. Chemistry panel was unremarkable. Kidney function stable with creatinine at 1.0. Troponin I was negative. Urine analysis showed trace proteinuria and blood 3+ with RBCs 4697 and WBC 80s with positive leukocyte esterase. U tox was negative. Pending urine culture. CT head was negative for any acute changes. CT cervical spine was negative for fracture. CT scan of the right hip showed acute displaced intertrochanteric fracture of right femur. Ortho was consulted for hip fracture repair. PMH: As above Allergies: NKDA Home medications: Diltiazem CD240 once a day, Eliquis 2.5 mg twice daily, famotidine 20 mg, finasteride 5 mg, memantine 5 mg twice daily, mirtazapine 45 mg, tamsulosin 0.4 mg Cardiology team consulted for cardiac clearance and patient does follow-up with Dr. Bravo as outpatient. Patient is admitted for acute displaced intertrochanteric fracture right femur post ground-level fall. Head CT and cervical spine x-ray was negative. Troponin I was negative. EKG showed A-fib with rate controlled pulse 92 bpm. QTc 447. Patient has stable hemoglobin. Chemistry panel is unremarkable. Kidney function stable. UA does show significant gross hematuria and pyuria. Recommendations as per primary care team. Patient was taking Cardizem CD 240 once a day for A-fib recommended to continue that and hold Eliquis for now given patient needs acute intertrochanteric fracture hip repair and continue restart Eliquis 2.5 mg 48 hours after surgery. Cardiology will follow the case closely. Ortho following the case for right hip fracture repair. Continue treatment for UTI with ceftriaxone. -we added lovenox 70 mgx1 for now and lovenox 70 mg for morning to bridge due to high risk of stroke. All labs and orders were reviewed. 03/30/2024: Patient was seen and examined at the bedside. Vitals stable. Labs revealed hemoglobin at 9.2. Platelet count 213. Chemistry panel was unremarkable. Patient was bridged with Lovenox yesterday due to high risk of stroke. Currently awaiting surgery scheduled on Thursday. Pt refused lovenox dose at night therefore lovenox 80 mgx1 ordered for morning. All labs and orders were reviewed. 03/31/2024: Patient was seen and examined at the bedside. Overnight rapid response was called due to A-fib with RVR heart rate in 170s night team administered Cardizem 10 mg IV x 1 and heart rate dropped to 110s. Currently on Cardizem CD 240 once a day. Morning labs revealed stable hemoglobin at 9.9. Chemistry panel was unremarkable. Kidney functions stable. MRSA screen negative. Patient received Lovenox in the morning. Awaiting surgery for tomorrow for hip fracture. All labs and orders were reviewed. 04/01/24: Patient was seen and examined at the bedside. Patient appears to be doing well after the surgery. Morning vitals showed stable blood pressure and heart rate. Saturating well on room air. Labs showed mild drop in hemoglobin to 8.5. Stable platelets. Chemistry panel was unremarkable. Kidney function showed BUN 27 and creatinine 0.8. Blood glucose 125. Patient underwent open reduction internal fixation for intertrochanteric fracture right hip. Recommended to start Eliquis 48 hours later. Exam Vital Signs Temp Pulse Resp BP Pulse Ox O2 Del Method 98.8 F 90 21 H 114/65 97 Room Air 04/01/24 08:00 04/01/24 08:00 04/01/24 08:00 04/01/24 08:00 04/01/24 08:00 04/01/24 08:00 Narrative Exam GENERAL APPEARANCE: AxOx3, generally well-appearing male in mild distress due to right hip pain. HEENT: NC, AT. MMM. EOMI, clear conjunctiva, oropharynx clear. NECK: Supple without lymphadenopathy. No stiffness or restricted ROM. HEART: irregular rate and rhythm, normal S1/S2, no m/r/g LUNGS: Bilateral mild decreased breath sounds on auscultation ABDOMEN: Soft, nontender, nondistended with good bowel sounds heard. EXTREMITIES: Patient's RLE is shortened and externally rotated. NEUROLOGICAL: Grossly nonfocal. Alert and orientedx3 CN not formally tested but appear grossly intact. Skin: Warm and dry without any rash. Psych: Appropriate mood and affect Objective Labs 04/01/24 05:13 04/01/24 05:13 Labs: Laboratory Results - last 24 hr 03/31/24 03/31/24 03/31/24 04:45 16:01 17:50 WBC 12.9 H RBC 3.16 L Hgb 9.0 L Hct 27.6 L MCV 87 MCH 28.5 MCHC 32.6 RDW Std Deviation 50.3 H Plt Count 225 Neut % (Auto) 85 H Lymph % (Auto) 8 L Pacific % (Auto) 7 Eos % (Auto) 0 Baso % (Auto) 0 Neut # (Auto) 10.9 H Lymph # (Auto) 1.0 Pacific # (Auto) 0.9 H Eos # (Auto) 0.0 Baso # (Auto) 0.0 Immature Gran # (Auto) 0.06 H Absolute Nucleated RBC 0.00 Immature Gran % 1 H Nucleated RBC % 0 Sodium Potassium Chloride Carbon Dioxide Anion Gap BUN Creatinine Estim Creat Clear Calc eGFR BUN/Creatinine Ratio Glucose Calculated Osmolality Calcium Corrected Calcium Phosphorus Magnesium 2.2 Total Bilirubin AST ALT Alkaline Phosphatase Total Protein Albumin Globulin Albumin/Globulin Ratio Blood Type O Positive Antibody Screen NEGATIVE Crossmatch See Detail Blood Bank Wristband ID Yes 04/01/24 05:13 WBC 9.1 RBC 3.04 L Hgb 8.5 L Hct 26.4 L MCV 87 MCH 28.0 MCHC 32.2 RDW Std Deviation 50.0 H Plt Count 217 Neut % (Auto) 80 Lymph % (Auto) 11 Pacific % (Auto) 9 Eos % (Auto) 0 Baso % (Auto) 0 Neut # (Auto) 7.3 Lymph # (Auto) 1.0 Pacific # (Auto) 0.8 Eos # (Auto) 0.0 Baso # (Auto) 0.0 Immature Gran # (Auto) 0.04 H Absolute Nucleated RBC 0.00 Immature Gran % 0 Nucleated RBC % 0 Sodium 136 Potassium 3.6 Chloride 103 Carbon Dioxide 27.3 Anion Gap 6 L BUN 27 H Creatinine 0.8 Estim Creat Clear Calc 59.8 L eGFR > 60 BUN/Creatinine Ratio 34 H Glucose 125 H D Calculated Osmolality 278 Calcium 8.7 Corrected Calcium 9.0 Phosphorus 2.7 Magnesium 2.0 Total Bilirubin 0.5 AST 20 ALT 10 Alkaline Phosphatase 64 Total Protein 5.8 Albumin 3.6 D Globulin 2.2 L Albumin/Globulin Ratio 1.6 Blood Type Antibody Screen Crossmatch Blood Bank Wristband ID Quality Measures Quality Measures VTE prophylaxis (Eliquis on hold, Lovenox given for bridge) Advance care planning discussed with:: patient Assessment & Plan Assessment Current Active Medications: Generic Name Dose Route Start Last Admin Trade Name Freq PRN Reason Stop Dose Admin Acetaminophen 650 mg 03/29/24 09:16 Acetaminophen 325 Mg Tablet PO 04/28/24 09:15 Q6H PRN PAIN SCALE 1-3 (mild Hydrocodone Bitart/Acetaminophen 1 tab 03/29/24 09:16 03/30/24 12:04 Hydrocodone/Apap 5/325 Tablet PO 04/03/24 09:15 1 tab Q4HR PRN Administration PAIN SCALE 4-6 (Moderate Albuterol/Ipratropium 3 ml 03/29/24 09:18 Albuterol/Ipratropium (Duoneb) Rt Wilda 3 Ml Nebu INH 04/28/24 12:59 Q6HRRT PRN wheezing or SOB Diltiazem HCl 240 mg 03/29/24 13:30 03/31/24 08:56 Diltiazem Cd 120 Mg Capcr PO 04/28/24 13:29 240 mg QDAY CORETTA Administration Diltiazem HCl 15 mg 03/31/24 19:47 Diltiazem Inj 5 Mg/Ml Vial 5 Ml IV 04/30/24 19:46 Q4H PRN Heart rate above 125 bpm Finasteride 5 mg 03/29/24 09:30 03/31/24 08:56 Finasteride 5 Mg Tablet PO 04/28/24 09:29 5 mg QDAY CORETTA Administration Ceftriaxone Sodium/Dextrose 50 mls @ 100 mls/hr 03/29/24 15:04 03/31/24 09:26 Rocephin/D5w 1gm Iv Premix IV 04/05/24 15:03 Infused QDAY CORETTA Infusion Ondansetron HCl 4 mg 03/30/24 14:37 04/01/24 07:46 Ondansetron Inj 2 Mg/Ml Inj 2 Ml IV 04/28/24 09:15 4 mg Q4H PRN Administration NAUSEA OR VOMITING Protocol Pantoprazole Sodium 40 mg 03/29/24 09:30 03/31/24 08:56 Pantoprazole Inj 40 Mg Vial IVP 04/28/24 09:29 40 mg QDAY CORETTA Administration Tamsulosin HCl 0.4 mg 03/29/24 09:30 03/31/24 08:57 Tamsulosin Hcl 0.4 Mg Capsule PO 04/28/24 09:29 0.4 mg QDAY CORETTA Administration Plan The patient is an 88-year-old male with past medical hx chronic persistent atrial fibrillation with EDGARDO score of 3 on eliquis 2.5 twice daily,HTN, 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 Admitted for right intratrochanteric fracture. # A-fib rate controlled # ORIF for intertrochanteric fracture right hip ? [id number] of 5 ? Patient was taking diltiazem 240 CD once a day and Eliquis 2.5 mg twice daily. ? EKG showed A-fib with rate control. QTc 447. ? Echocardiogram from September 2023 showed No LA/ GABI thrombus and no PFO or ASD GABI measurements: 0?(diameter: 2.8cm/Depth 2.5cm.), 45?(diameter 2.5cm/Depth 2.6cm), 90?(diameter 2.5cm/Depth 2.7cm), 135?(diameter 2.6cm/Depth 2.8cm). Normal LV size and function. Estiamted EF 60-65%. Mild RV dilatation. Normal RV function. Severe biatrial dilatation. The acending aorta is mildly dilated. 3.6cm. Moderate MR, TR. Mild AI. -we added lovenox 70 mgx1 for now and lovenox 70 mg for morning to bridge due to high risk of stroke ?Rapid response was called last night due to A-fib with RVR night team gave Cardizem 10 mg IV x 1 and currently rate controlled Plan: ? Recommended to start Eliquis 48 hours later. ? Patient underwent open reduction internal fixation for intertrochanteric fracture right hip today, 04/01 ? Continue Cardizem 15 mg IV Q4 hourly in case of heart rate above 125 bpm ? Recommended to resume diltiazem 240 CD once a day ? Continuous monitoring in telemetry ? Keep mag above 2 and potassium above 4 ? Daily labs ? Monitor for signs symptoms of chest pain and shortness of breath # History of hypertension ? Patient was recently discharged from the hospital in August 2023 after workup for stroke on Eliquis. Plan: ? Currently holding Eliquis for hip fracture. ? Continue statin therapy ? Monitor vitals ? Pain management as needed # ORIF for intertrochanteric fracture right hip # Acute intertrochanteric fracture right hip ?Due to ground-level fall ? Ortho consulted and following the case. ? Pain management as needed # UTI # BPH # COPD # Chronic Bronchitis # History of cerebellar stroke multi infarction embolic phenomena due to A-fib on Eliquis # History of nephrolithiasis # Normocytic anemia # Hematuria and pyuria and UTI per urinalysis Rest of the management as per primary care team. Thank you very much for consulting cardiology team.recommended to restart Eliquis 48 hours later that this on 04/03. Continue Cardizem CD 240 once a day and keep Cardizem 15 mg IV Q4 hourly as needed for heart rate above 125 bpm. Patient underwent surgery today without complication. Pain management as needed. -- Plan of care discussed with perlite grinder, Dr. Lawrence Sivla MD, PGY 2
--- NOTE | 2024-04-01 10:44 | SUR.PHASEI ---
1044: Pt. AAOx4, vitals stable, breathing unlabored, no complaint of pain or nausea, dressing to right hip CDI, no active bleed noted, palpable dorsalis pedis pulses bilaterally strong and regular, cap refill to bilateral feet less than 3 seconds, pt. able to wiggle bilateral toes, report received from Paul ROGERS and MD Dos Santos.
--- NOTE | 2024-04-01 10:49 | XR_ITS ---
Examination: AP pelvis, AP right femur 3 views Technique: AP pelvis, AP right femur 3 views total 4 views Exam date and time:April 01, 2024 1113 hours INDICATIONS: Postop hip fracture today FINDINGS: Status post operative reduction internal fixation right hip fracture with anatomic alignment Intramedullary jone satisfactory position as well as the orthopedic hardware through the terminal neck intertrochanteric region IMPRESSION: Status post operative reduction internal fixation right hip fracture with anatomic alignment
--- NOTE | 2024-04-01 10:51 | ESOP_ITS ---
Date of Procedure 04/01/24 Pre Op Diagnosis Displaced intertrochanteric fracture right hip Post Op Diagnosis Same Procedure ORIF with trochanteric fixation nail. Synthes implant. Femur size 400 mm x 12 mm diameter. Helical blade size 105 mm Findings Refer dictation Procedure Description Patient was given a spinal anesthesia and nerve block. Once satisfactory anesthesia was achieved patient was put on fracture table. Patient was nicely secured. The fracture was reduced and checked under C arm in both AP and lateral. The length is maintained. The rotation is also maintained. Almost anatomical reduction was achieved Intravenous antibiotics was given at the time of anesthesia Following that the part was thoroughly prepped and draped. A skin incision was made about 2 inches proximal to greater trochanter and extended further proximally for about couple of inches. Deeper dissection was carried out. The tensor fascia katherin was incised in the line of his skin incision and was carried into to the greater trochanteric area Following that under the C-arm guidance a guidepin was passed from the greater trochanter into the marrow canal. Was satisfactory pressure achieved in the canal then reaming was done up to the lesser trochanteric area The guidepin was removed and guidewire was passed. Once guidewire was placed in satisfactory position the length of the nail to be used was measured. Decision was made to use size 400 mm long nail. Following that sequence over reaming was done. 13.5 mm reamer was showing some chattering. A final decision was made to use 400 mm long by 12 mm diameter nail Following that the above-mentioned size nail was slowly advanced into the marrow canal. The guidewire was removed. Once satisfactory pressure achieved then the Zick for the placement of the helical blade was attached. Another skin incision was made over the lateral aspect of the thigh. Deeper dissection was carried out. Tensor fascia katherin was incised. Following that the jig was placed adjacent to the lateral cortex of the femur Following that a guidepin was passed up to the subchondral portion of the head of the femur. Position was checked under C arm in both AP and lateral and once satisfactory position was achieved then lateral cortex was reamed. Before that the length of the helical blade was measured and decision was made to use size 105 mm long blade. Following that reaming up to the subchondral portion of the head of the femur was then Size 105 mm long helical blade was mounted and advanced into the marrow canal. Once satisfactory position was achieved then placement jig was removed. With the help of flexible screwdriver the hot top liner was tightened to lock the helical blade. With the help of fixed a screwdriver the placement jig for the nail was removed Wound was irrigated with antibiotic solution every 4 to 5 minutes. The position was repeatedly checked under C arm in both AP and lateral and found to be good Closure was done in layers for the soft tissue. 2-0 Vicryl was used. Skin was closed with a amalia After cleaning the wound with hydrogen peroxide solution a sterile dressing was applied Patient tolerated procedure well. Estimated blood loss 50 mL. Prognosis in this case is fair to good. Anesthesia GETA and other Pathology / specimen None Estimated Blood Loss 50 Surgeon Tad Lundberg MD Surgical Staff Operation Date: 04/01/24 09:15 Case Staff Anesthesiologist: Gonzalo Dos Santos RNmarket garden worker: Nazario Nazario
--- NOTE | 2024-04-01 11:30 | SUR.PHASEI ---
1130: Pt. AAOx4, vitals stable, breathing unlabored, no complaint of pain or nausea, dressing to right hip CDI, no active bleed noted, palpable dorsalis pedis pulses bilaterally strong and regular, cap refill to bilateral feet less than 3 seconds, pt. able to wiggle bilateral toes, pt. tolerated sips of water well, gave report to Abby ROGERS prior to transfer to room 266. Family made aware of transfer to room.
[2024-04-01] MEDS: cefTRIAXone/D5w 1gm IV premix 50 ML IV (13:08)
[2024-04-01] MEDS: PANTOPRAZOLE INJ 40 MG VIAL IVP (13:09)
[2024-04-01] MEDS: TAMSULOSIN HCL 0.4 MG CAPSULE PO (13:09)
[2024-04-01] MEDS: DILTIAZEM CD 120 MG CAPCR 240 MG PO (13:10)
[2024-04-01] MEDS: FINASTERIDE 5 MG TABLET PO (13:10)
--- NOTE | 2024-04-01 13:25 | ESCONSULT_ITS ---
RE: MARY GARRISON : 1935 DATE OF CONSULTATION: 04/01/2024 Thank you, Dr. Gordon, for asking me to consult on the patient, whom I saw on 03/30/2024. HISTORY OF PRESENT ILLNESS: As per history available, the patient sustained ground level fall and after that was unable to put any weight on the right lower limb. The patient was brought to emergency room and x-ray was obtained. It revealed a displaced intertrochanteric fracture of the right hip. The injury happened on 03/29/2024. The patient was admitted for further management. PAST MEDICAL HISTORY: The patient has history of COPD, chronic bronchitis and asthma. Besides that, the patient has history of atrial fibrillation, nephrolithiasis and history of his skin cancer. PAST SURGICAL HISTORY: Femoral hernia repair and hiatal hernia repair. DRUG HISTORY: The patient is on Diltiazem, Mirtazapine, rosuvastatin, Eliquis and hydrocodone. ALLERGIES: NIL KNOWN. FAMILY HISTORY AND SOCIAL HISTORY: The patient lives with his . PHYSICAL EXAMINATION: EXTREMITIES: Right lower limb examination revealed tenderness in the right groin. Dorsalis pedis artery and posterior tibial artery is palpable. It is externally rotated. GENERAL: Physical examination revealed Rather normal built person. VITAL SIGNS: Pulse is 86 per minute, blood pressure 134/76. NECK: Soft, supple. No mass felt. Trachea is centrally placed. CARDIOVASCULAR SYSTEM: First and second heart sounds normal. No murmur heard. RESPIRATORY SYSTEM: Bilateral vesicular breath sounds. CHEST: Clear. ABDOMEN: Soft. No mass felt. Bowel sounds present. DIAGNOSTIC DATA: X-ray confirm displaced intertrochanteric fracture of the right hip. The patient was explained the diagnosis and prognosis. With the help of pictures and diagram, the procedure was explained. I explained that patient needs nailing of the femur with disk helical blade. A detailed discussion took place. All questions were answered. Risk with anesthesia was explained and that includes, but not limited to reaction to anesthetic agents, cardiac arrest and rarely it might be fatal. Risk with operation includes infection, and if that happens, the patient may need further surgical procedure. Other risks include delayed healing, wound dehiscence, etc. No guarantee is given regarding outcome of the procedure and/or relief of symptoms. Accordingly, surgery was booked for 04/01/2024. The patient was also cleared for surgical procedure by the personal financial counselor, Dr. Cedric Bravo. DT: 11:02:04 TT: 13:23:00 Ref: [id number] - TID: [id number]
--- NOTE | 2024-04-01 13:39 | PD.RESPRO ---
Documentation for date of: 04/01/24 Subjective Subjective Interval history: Patient was seen and examined at the bedside. No acute overnight events. Patient is going to the surgery today, will reevaluate him after. Pain control is ordered. Exam Vital Signs Temp Pulse Resp BP Pulse Ox O2 Del Method O2 Flow Rate 98.1 F 92 23 H 104/60 96 Room Air 2 04/01/24 12:45 04/01/24 13:10 04/01/24 12:45 04/01/24 13:10 04/01/24 12:45 04/01/24 12:45 04/01/24 11:25 Narrative Exam Gen: Well-developed and well-nourished elderly HEENT: NCAT, PERRLA, EOMI, MMM, anicteric conjunctivae. CVS: normal S1 and S2. RRR. No M/R/G. Resp: CTA B/L. No rhonchi, rales, crackles or wheezing. Abd: soft, non-tender, non-distended. BS+ in all 4 quadrants. MSK: Patient's RLE is shortened and externally rotated. No edema or rash. Neuro: CN II-XII grossly intact. Strength 5/5 in BUE & BLE. Alert and oriented x3. Objective Labs 04/01/24 05:13 04/01/24 05:13 Labs: Laboratory Results - last 24 hr 03/31/24 03/31/24 04/01/24 16:01 17:50 05:13 WBC 12.9 H 9.1 RBC 3.16 L 3.04 L Hgb 9.0 L 8.5 L Hct 27.6 L 26.4 L MCV 87 87 MCH 28.5 28.0 MCHC 32.6 32.2 RDW Std Deviation 50.3 H 50.0 H Plt Count 225 217 Neut % (Auto) 85 H 80 Lymph % (Auto) 8 L 11 Bre[place] % (Auto) 7 9 Eos % (Auto) 0 0 Baso % (Auto) 0 0 Neut # (Auto) 10.9 H 7.3 Lymph # (Auto) 1.0 1.0 Bre[place] # (Auto) 0.9 H 0.8 Eos # (Auto) 0.0 0.0 Baso # (Auto) 0.0 0.0 Immature Gran # (Auto) 0.06 H 0.04 H Absolute Nucleated RBC 0.00 0.00 Immature Gran % 1 H 0 Nucleated RBC % 0 0 Sodium 136 Potassium 3.6 Chloride 103 Carbon Dioxide 27.3 Anion Gap 6 L BUN 27 H Creatinine 0.8 Estim Creat Clear Calc 59.8 L eGFR > 60 BUN/Creatinine Ratio 34 H Glucose 125 H D Calculated Osmolality 278 Calcium 8.7 Corrected Calcium 9.0 Phosphorus 2.7 Magnesium 2.0 Total Bilirubin 0.5 AST 20 ALT 10 Alkaline Phosphatase 64 Total Protein 5.8 Albumin 3.6 D Globulin 2.2 L Albumin/Globulin Ratio 1.6 Blood Type O Positive Antibody Screen NEGATIVE Crossmatch See Detail Blood Bank Wristband ID Yes Quality Measures Quality Measures VTE prophylaxis (Eliquis on hold, Lovenox given for bridge) Advance care planning discussed with:: patient Assessment & Plan Assessment Current Active Medications: Generic Name Dose Route Start Last Admin Trade Name Freq PRN Reason Stop Dose Admin Acetaminophen 650 mg 03/29/24 09:16 Acetaminophen 325 Mg Tablet PO 04/28/24 09:15 Q6H PRN PAIN SCALE 1-3 (mild Hydrocodone Bitart/Acetaminophen 1 tab 03/29/24 09:16 03/30/24 12:04 Hydrocodone/Apap 5/325 Tablet PO 04/03/24 09:15 1 tab Q4HR PRN Administration PAIN SCALE 4-6 (Moderate Albuterol/Ipratropium 3 ml 03/29/24 09:18 Albuterol/Ipratropium (Duoneb) Rt Wilda 3 Ml Nebu INH 04/28/24 12:59 Q6HRRT PRN wheezing or SOB Diltiazem HCl 240 mg 03/29/24 13:30 04/01/24 13:10 Diltiazem Cd 120 Mg Capcr PO 04/28/24 13:29 240 mg QDAY CORETTA Administration Diltiazem HCl 15 mg 03/31/24 19:47 Diltiazem Inj 5 Mg/Ml Vial 5 Ml IV 04/30/24 19:46 Q4H PRN Heart rate above 125 bpm Fentanyl Citrate 25 mcg 04/01/24 10:30 Fentanyl Cit Inj 50 Mcg/Ml Amp 2ml IV Q5MIN PRN PAIN SCALE 4-10(Mod-Sev Finasteride 5 mg 03/29/24 09:30 04/01/24 13:10 Finasteride 5 Mg Tablet PO 04/28/24 09:29 5 mg QDAY CORETTA Administration Hydralazine HCl 5 mg 04/01/24 10:30 Hydralazine Inj 20 Mg/Ml Vial IV Q20MIN PRN SEE COMMENTS Ceftriaxone Sodium/Dextrose 50 mls @ 100 mls/hr 03/29/24 15:04 04/01/24 13:08 Rocephin/D5w 1gm Iv Premix IV 04/05/24 15:03 100 mls/hr QDAY CORETTA Administration Cefazolin Sodium/Dextrose 1 gm in 50 mls @ 50 mls/hr 04/01/24 16:00 Ancef Ivpb IV 04/02/24 00:59 Q8H CORETTA Morphine Sulfate 4 mg 04/01/24 12:29 Morphine Sulf Inj 10 Mg/Ml Vial IV 04/06/24 12:28 Q4HR PRN PAIN Ondansetron HCl 4 mg 04/01/24 12:29 Ondansetron Inj 2 Mg/Ml Inj 2 Ml IV 05/01/24 12:28 Q6HR PRN NAUSEA OR VOMITING Protocol Pantoprazole Sodium 40 mg 03/29/24 09:30 04/01/24 13:09 Pantoprazole Inj 40 Mg Vial IVP 04/28/24 09:29 40 mg QDAY CORETTA Administration Tamsulosin HCl 0.4 mg 03/29/24 09:30 04/01/24 13:09 Tamsulosin Hcl 0.4 Mg Capsule PO 04/28/24 09:29 0.4 mg QDAY CORETTA Administration Plan TMrCheng Navarrete is a 88-year-old male with past medical history significant of COPD, chronic bronchitis, asthma, A-fib, BPH, history of skin cancer status post radiation and recurrent kidney stones presents to the ED after a ground-level fall. Imaging revealed right hip fracture. # Acute intertrochanteric fracture right hip. ?Due to ground-level fall -Hip/pelvis x-ray- Acute angulated intertrochanteric fracture right hip. -Cervical spine CT-no acute cervical fracture. 6 mm sclerotic focus in the C7 vertebral body, differential would include osteoblastic metastasis. -Head CT was negative for acute hemorrhage, mass effect or midline shift. -Hip CT- Acute comminuted angulated intertrochanteric fracture right hip -Femur x-ray- Acute intertrochanteric fracture right hip Plan: ? Ortho consulted Dr. Lundberg plans to do surgery on sunday 04/01 ? Pain management - [place] PRN Q4H -D/c Eliquis and all anticoagulation #A-fib, rate controlled. ? [id number] of 5 ? resume gomw diltiazem 240 CD once a day and -Hold Eliquis 2.5 mg twice daily (used levonox for bridging) ? EKG showed A-fib with rate control. QTc 447. ? Echocardiogram from September 2023 -Estiamted EF 60-65%. Mild RV dilatation. Severe biatrial dilatation. The acending aorta is mildly dilated. 3.6cm. Moderate MR, TR. Mild AI. Plan: -Patient's beverage inspection machine tender is Dr. Bravo, consulted with the following recommendations ? resume diltiazem 240 CD once a day ? Recommended to hold Eliquis given patient require hip fracture repair and recommended to restart 48 hours later postsurgery. Bridging with lovenox. ? Continuous monitoring in telemetry ? Keep mag above 2 and potassium above 4 ? Daily labs ? Monitor for signs symptoms of chest pain and shortness of breath #Nausea vomiting likely medication induced -Patient received morphine every 4 hours for the management of pain from hip fracture -DC'd morphine, [place] ordered -Zofran every 4 hours as needed #UTI. #Pyuria. -On urinalysis leukocyte esterase positive, urine WBC 80 -Patient denies dysuria and urinary urgency plan: -Ceftriaxone 1 g daily started 03/29- -monitor daily CBC Abnormal CT findings. -6 mm sclerotic focus in the C7 vertebral body, differential would include osteoblastic metastasis. -Patient is notified to follow-up outpatient with PCP recommendations #History of nephrolithiasis. #Hematuria. #BPH. #COPD. #Chronic Bronchitis. -Patient is being followed by Dr. Hanna -Per patient patient continues to refuse for surgical treatment of nephrolithiasis plan: -Outpatient follow-up with urologist -Resume home tamsulosin and silodosin Disposition: Medsurg- awaiting surgery on sunday 04/01 DVT Prophylaxis: no anticoaglated as pt. will be getting surgery. He received 2 doses of levonox on 03/29, 03/30 and 03/31 GI Prophylaxis: Pantoprozol-40 IV Diet: NPO on 03/31 after midnight Code status: Full Plan of care discussed with attending Dr. Aponte. Segundo Orantes MD, PGY 2. Disclaimer: This note was dictated by speech recognition. Minor errors in screen tender helper may be present due to voice recognition software. Attending Provider Attestation/Addendum Lou Haney DO, attest that I was physically present for the pimentel portions of the service and evaluated the patient with the resident and I reviewed and discussed the case with the resident and agree with the resident's findings and plans of care as documented above Patient seen and evaluated this afternoon following surgery. He states he is feeling much improved and denies pain. He is s/p ORIF. PT to work with patient. Continue with pain control. Will resume anticoagulation in next 24h.
--- NOTE | 2024-04-01 15:11 | PD.ANESPROG ---
Documentation for date of: 04/01/24 ANESTHESIA NOTE: Patient had spinal anesthesia (without intrathecal Duramorph) and R fascia iliaca block and monitored sedation for R TFN this morning. Pre-op, I saw him with his family at bedside. He was alert and calm in bed, endorsed R hip pain, denied any chest pain and dyspnea. He has h/o A fib and had RVR and rapid response called yesterday and given Diltiazem. He takes Eliquis, last dose 03/28/24 per family, and received 80 mg SC Lovenox yesterday around 9 am. He did very well intra-op. Spinal was placed easily in 1 attempt after 24 hrs passed since Lovenox. His A fib remained rate controlled and vitals were well maintained. He was given half of the one unit of RBC intra-op and remaining half was completed in PACU. He received about 500 cc in IV fluids intra-op, UOP 150 cc. He did well in PACU also, was alert, talking with his family visitors, VSS, YURIY. I saw him briefly as walk-by later in 266 and he was calmly resting in bed, head elevated, NAD. Will defer further management to the primary/floor team, including resumption of his anticoagulation. Gonzalo Dos Santos MD Anesthesia Progress Note Progress Note Most recent Vital Signs: Last Vital Signs Temp 98.1 F 04/01/24 12:45 Pulse 92 04/01/24 13:10 Resp 23 H 04/01/24 12:45 BP 104/60 04/01/24 13:10 Pulse Ox 96 04/01/24 12:45 O2 Del Method Room Air 04/01/24 12:45 O2 Flow Rate 2 04/01/24 11:25
[2024-04-01] MEDS: ceFAZolin/D5W 1 GM IVPB 1 GM/50 ML BAG IV ×2 (16:00→23:28)
[2024-04-02] VITALS (9 sets, daily range): BP systolic 99–119; BP diastolic 57–70; PULSE 70–114; RESP 16–23; TEMP 36.4–36.7; O2SAT 86–98
--- NOTE | 2024-04-02 04:48 | PC.NURSE ---
PT REFUSING BLOOD DRAW
--- NOTE | 2024-04-02 05:00 | PC.NURSE ---
REPORT GIVEN TO DONOVAN ROGERS MS. PT WILL BE TRANSFERRED ON BED WITH BELONGINGS TO RM [id number].
[2024-04-02] MEDS: HYDROcodone/APAP 5/325 TABLET 1 TAB PO (09:17)
[2024-04-02] MEDS: PANTOPRAZOLE INJ 40 MG VIAL IVP (09:17)
[2024-04-02] MEDS: DILTIAZEM CD 120 MG CAPCR 240 MG PO (09:17)
[2024-04-02] MEDS: TAMSULOSIN HCL 0.4 MG CAPSULE PO (09:17)
[2024-04-02] MEDS: cefTRIAXone/D5w 1gm IV premix 50 ML IV (09:18)
[2024-04-02] MEDS: FINASTERIDE 5 MG TABLET PO (09:18)
[2024-04-02 09:51] LABS: Basophils % (Auto) 0 % (0-2.5); Eosinophils % (Auto) 0 % (0-10); Hematocrit 28.7 % (41.0-53.0); Hemoglobin 9.7 g/dL (13.5-16.0); Immature Granulocytes % (Auto) 1 % (0-0); Immature Granulocytes Auto 0.07 Thou/mm3 (0.00-0.00); Lymphocytes # (Auto) 0.6 Thou/mm3 (1.0-4.8); Lymphocytes % (Auto) 5 % (10-50); Mean Corpuscular HGB Conc 33.8 g/dl (31.0-37.0); Mean Corpuscular Hemoglobin 28.8 pg (25.0-35.0); Mean Corpuscular Volume 85 fL (80-100); Monocytes # (Auto) 0.4 Thou/mm3 (0.0-0.8); Monocytes % (Auto) 4 % (0-12); Neutrophils # (Auto) 9.9 Thou/mm3 (1.8-7.7); Neutrophils % (Auto) 90 % (37-80); Nucleated Red Blood Cell % 0 /100 WBC (0); Platelet Count 193 Thou/mm3 (140-440); RDW Standard Deviation 47.4 fL (35.1-43.9); Red Blood Count 3.37 Miln/mm3 (4.50-5.90)
[2024-04-02] MEDS: ONDANSETRON INJ 2 MG/ML INJ 2 ML 4 MG IV (09:59)
--- NOTE | 2024-04-02 10:09 | ESPR_ITS ---
<Statement entered by Cedric Bravo MD - 04/03/24 13:02> I personally examined the patient on third floor appears to be doing better postoperative day 2 appears to be have no shortness of breath chest pain A-fib rate controlled well blood pressure on the soft side we will continue the Cardizem for rate control and Eliquis to be resumed 48 hours after the surgery treatment plan recommendation and reviewed by me personally and agree with the treatment plan recommendation as documented by PGY 2 Dr. 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 Patient fell in the bathroom and lost his balance and landed on his right leg. Has been complaining of right hip pain and inability to move his right lower extremity. He also endorsed hitting his head but denied any loss of consciousness. Endorses nausea. Denied any dizziness, lightheadedness, nausea, vomiting, chest pain, shortness of breath., Abdominal pain or any other complaints. In the ED, patient was vitally stable. Labs revealed stable hemoglobin at 12.5. Chemistry panel was unremarkable. Kidney function stable with creatinine at 1.0. Troponin I was negative. Urine analysis showed trace proteinuria and blood 3+ with RBCs 4697 and WBC 80s with positive leukocyte esterase. U tox was negative. Pending urine culture. CT head was negative for any acute changes. CT cervical spine was negative for fracture. CT scan of the right hip showed acute displaced intertrochanteric fracture of right femur. Ortho was consulted for hip fracture repair. PMH: As above Allergies: NKDA Home medications: Diltiazem CD240 once a day, Eliquis 2.5 mg twice daily, famotidine 20 mg, finasteride 5 mg, memantine 5 mg twice daily, mirtazapine 45 mg, tamsulosin 0.4 mg Cardiology team consulted for cardiac clearance and patient does follow-up with Dr. Bravo as outpatient. Patient is admitted for acute displaced intertrochanteric fracture right femur post ground-level fall. Head CT and cervical spine x-ray was negative. Troponin I was negative. EKG showed A-fib with rate controlled pulse 92 bpm. QTc 447. Patient has stable hemoglobin. Chemistry panel is unremarkable. Kidney function stable. UA does show significant gross hematuria and pyuria. Recommendations as per primary care team. Patient was taking Cardizem CD 240 once a day for A-fib recommended to continue that and hold Eliquis for now given patient needs acute intertrochanteric fracture hip repair and continue restart Eliquis 2.5 mg 48 hours after surgery. Cardiology will follow the case closely. Ortho following the case for right hip fracture repair. Continue treatment for UTI with ceftriaxone. -we added lovenox 70 mgx1 for now and lovenox 70 mg for morning to bridge due to high risk of stroke. All labs and orders were reviewed. 03/30/2024: Patient was seen and examined at the bedside. Vitals stable. Labs revealed hemoglobin at 9.2. Platelet count 213. Chemistry panel was unremarkable. Patient was bridged with Lovenox yesterday due to high risk of stroke. Currently awaiting surgery scheduled on Thursday. Pt refused lovenox dose at night therefore lovenox 80 mgx1 ordered for morning. All labs and orders were reviewed. 03/31/2024: Patient was seen and examined at the bedside. Overnight rapid response was called due to A-fib with RVR heart rate in 170s night team administered Cardizem 10 mg IV x 1 and heart rate dropped to 110s. Currently on Cardizem CD 240 once a day. Morning labs revealed stable hemoglobin at 9.9. Chemistry panel was unremarkable. Kidney functions stable. MRSA screen negative. Patient received Lovenox in the morning. Awaiting surgery for tomorrow for hip fracture. All labs and orders were reviewed. 04/01/24: Patient was seen and examined at the bedside. Patient appears to be doing well after the surgery. Morning vitals showed stable blood pressure and heart rate. Saturating well on room air. Labs showed mild drop in hemoglobin to 8.5. Stable platelets. Chemistry panel was unremarkable. Kidney function showed BUN 27 and creatinine 0.8. Blood glucose 125. Patient underwent open reduction internal fixation for intertrochanteric fracture right hip. Recommended to start Eliquis 2.5 once a day 48 hours later. 04/02/2024: Patient was seen and examined at the bedside vitals stable. Labs revealed mild leukocytosis hemoglobin stable at 9.7. Chemistry panel was unremarkable. Blood glucose 240. Will likely start Eliquis tomorrow morning. Exam Vital Signs Temp Pulse Resp BP Pulse Ox O2 Del Method O2 Flow Rate 97.6 F 70 16 109/62 86 L Room Air 2 04/02/24 08:00 04/02/24 09:17 04/02/24 08:00 04/02/24 09:17 04/02/24 08:00 04/02/24 08:00 04/01/24 20:00 Narrative Exam GENERAL APPEARANCE: AxOx3, generally well-appearing male in no distress HEENT: NC, AT. MMM. EOMI, clear conjunctiva, oropharynx clear. NECK: Supple without lymphadenopathy. No stiffness or restricted ROM. HEART: irregular rate and rhythm, normal S1/S2, no m/r/g LUNGS: Bilateral mild decreased breath sounds on auscultation ABDOMEN: Soft, nontender, nondistended with good bowel sounds heard. EXTREMITIES: Patient's RLE is shortened and externally rotated. NEUROLOGICAL: Grossly nonfocal. Alert and orientedx3 CN not formally tested but appear grossly intact. Skin: Warm and dry without any rash. Psych: Appropriate mood and affect Objective Labs 04/02/24 09:33 04/02/24 09:33 Labs: Laboratory Results - last 24 hr 04/02/24 09:33 WBC 11.0 H RBC 3.37 L Hgb 9.7 L Hct 28.7 L MCV 85 MCH 28.8 MCHC 33.8 RDW Std Deviation 47.4 H Plt Count 193 Neut % (Auto) 90 H Lymph % (Auto) 5 L [place] % (Auto) 4 Eos % (Auto) 0 Baso % (Auto) 0 Neut # (Auto) 9.9 H Lymph # (Auto) 0.6 L [place] # (Auto) 0.4 Eos # (Auto) 0.0 Baso # (Auto) 0.0 Immature Gran # (Auto) 0.07 H Absolute Nucleated RBC 0.00 Immature Gran % 1 H Nucleated RBC % 0 Quality Measures Quality Measures VTE prophylaxis (Restarting Eliquis tomorrow morning 2.5 mg twice daily) Advance care planning discussed with:: patient Assessment & Plan Assessment Current Active Medications: Generic Name Dose Route Start Last Admin Trade Name Freq PRN Reason Stop Dose Admin Acetaminophen 650 mg 03/29/24 09:16 Acetaminophen 325 Mg Tablet PO 04/28/24 09:15 Q6H PRN PAIN SCALE 1-3 (mild Hydrocodone Bitart/Acetaminophen 1 tab 04/02/24 09:02 04/02/24 09:17 Hydrocodone/Apap 5/325 Tablet PO 04/03/24 09:15 1 tab Q4HR PRN Administration PAIN SCALE 4-6 (Moderate Albuterol/Ipratropium 3 ml 03/29/24 09:18 Albuterol/Ipratropium (Duoneb) Rt Wilda 3 Ml Nebu INH 04/28/24 12:59 Q6HRRT PRN wheezing or SOB Apixaban 2.5 mg 04/03/24 09:00 Apixaban 2.5 Mg Tablet PO 05/03/24 08:59 BID CORETTA Diltiazem HCl 240 mg 03/29/24 13:30 04/02/24 09:17 Diltiazem Cd 120 Mg Capcr PO 04/28/24 13:29 240 mg QDAY [place] Administration Diltiazem HCl 15 mg 03/31/24 19:47 Diltiazem Inj 5 Mg/Ml Vial 5 Ml IV 04/30/24 19:46 Q4H PRN Heart rate above 125 bpm Fentanyl Citrate 25 mcg 04/01/24 10:30 Fentanyl Cit Inj 50 Mcg/Ml Amp 2ml IV Q5MIN PRN PAIN SCALE 4-10(Mod-Sev Finasteride 5 mg 03/29/24 09:30 04/02/24 09:18 Finasteride 5 Mg Tablet PO 04/28/24 09:29 5 mg QDAY CORETTA Administration Hydralazine HCl 5 mg 04/01/24 10:30 Hydralazine Inj 20 Mg/Ml Vial IV Q20MIN PRN SEE COMMENTS Ceftriaxone Sodium/Dextrose 50 mls @ 100 mls/hr 03/29/24 15:04 04/02/24 09:18 Rocephin/D5w 1gm Iv Premix IV 04/05/24 15:03 100 mls/hr QDAY CORET[place] Administration Morphine Sulfate 4 mg 04/01/24 12:29 Morphine Sulf Inj 10 Mg/Ml Vial IV 04/06/24 12:28 Q4HR PRN PAIN Ondansetron HCl 4 mg 04/01/24 12:29 04/02/24 09:59 Ondansetron Inj 2 Mg/Ml Inj 2 Ml IV 05/01/24 12:28 4 mg Q6HR PRN Administration NAUSEA OR VOMITING Protocol Pantoprazole Sodium 40 mg 03/29/24 09:30 04/02/24 09:17 Pantoprazole Inj 40 Mg Vial IVP 04/28/24 09:29 40 mg QDAY CORETTA Administration Tamsulosin HCl 0.4 mg 03/29/24 09:30 04/02/24 09:17 Tamsulosin Hcl 0.4 Mg Capsule PO 04/28/24 09:29 0.4 mg QDAY CORETTA Administration Plan The patient is an 88-year-old male with past medical hx chronic persistent atrial fibrillation with EDGARDO score of 3 on eliquis 2.5 twice daily,HTN, 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 Admitted for right intratrochanteric fracture. # A-fib rate controlled # ORIF for intertrochanteric fracture right hip ? [id number] of 5 ? Patient was taking diltiazem 240 CD once a day and Eliquis 2.5 mg twice daily. ? EKG showed A-fib with rate control. QTc 447. ? Echocardiogram from September 2023 showed No LA/ GABI thrombus and no PFO or ASD GABI measurements: 0?(diameter: 2.8cm/Depth 2.5cm.), 45?(diameter 2.5cm/Depth 2.6cm), 90?(diameter 2.5cm/Depth 2.7cm), 135?(diameter 2.6cm/Depth 2.8cm). Normal LV size and function. Estiamted EF 60-65%. Mild RV dilatation. Normal RV function. Severe biatrial dilatation. The acending aorta is mildly dilated. 3.6cm. Moderate MR, TR. Mild AI. -we added lovenox 70 mgx1 for now and lovenox 70 mg for morning to bridge due to high risk of stroke ?Rapid response was called last night due to A-fib with RVR night team gave Cardizem 10 mg IV x 1 and currently rate controlled Plan: ? Heart rate remains controlled on Cardizem CD 240. ? Recommended to start Eliquis 2.5 once a day to avoid bleeding risk tomorrow morning ? Patient underwent open reduction internal fixation for intertrochanteric fracture right hip today, 04/01 ? Continue Cardizem 15 mg IV Q4 hourly in case of heart rate above 125 bpm ? Recommended to resume diltiazem 240 CD once a day ? Continuous monitoring in telemetry ? Keep mag above 2 and potassium above 4 ? Daily labs ? Monitor for signs symptoms of chest pain and shortness of breath # History of hypertension ? Patient was recently discharged from the hospital in August 2023 after workup for stroke on Eliquis. Plan: ? Starting Eliquis 2.5 mg once a day tomorrow morning ? Continue statin therapy ? Monitor vitals ? Pain management as needed # ORIF for intertrochanteric fracture right hip # Acute intertrochanteric fracture right hip ?Due to ground-level fall ? Ortho consulted and following the case. ? Pain management as needed # UTI # BPH # COPD # Chronic Bronchitis # History of cerebellar stroke multi infarction embolic phenomena due to A-fib on Eliquis # History of nephrolithiasis # Normocytic anemia # Hematuria and pyuria and UTI per urinalysis Rest of the management as per primary care team. Thank you very much for consulting cardiology team.starting Eliquis 2.5 mg once a day to avoid bleeding risk tomorrow morning. Continue Cardizem CD 240 once a day. Heart rate remains controlled. -- Plan of care discussed with jute bag clipper, Dr. Lawrence Silva MD, PGY 2
[2024-04-02 10:21] LABS: Alanine Aminotransferase 15 U/L (10-49); Albumin, Serum 3.7 gm/dL (3.4-4.8); Albumin/Globulin Ratio 1.5 (1.2-2.2); Alkaline Phosphatase 75 U/L (46-116); Anion Gap 6 (7-16); Aspartate Amino Transferase 20 U/L (0-34); BUN/Creatinine Ratio 31 Ratio (12-20); Blood Urea Nitrogen 25 mg/dL (9-23); Calcium 8.9 mg/dL (8.3-10.6); Calcium (Corrected) 9.1 mg/dL (8.5-10.1); Carbon Dioxide 21.8 mMol/L (20.0-31.0); Chloride 104 mMol/L (98-107); Creatinine (Component) 0.8 mg/dL (0.6-1.3); Estimated Creatinine Clearance 59.8 mL/min (>60); Globulin 2.5 gm/dL (2.3-3.5); Glucose 240 mg/dL (74-106); Osmolality,Calculated 276 (275-295); Potassium 3.6 mMol/L (3.4-5.1); Sodium 132 mMol/L (136-145); Total Protein 6.2 gm/dL (5.7-8.2); eGFR > 60 See Note
--- NOTE | 2024-04-02 11:36 | ESPR_ITS ---
Documentation for date of: 04/02/24 Subjective Subjective Interval history: Patient's vitals, labs, imaging and chart reviewed. Patient interviewed and examined at bedside this AM accompanied by his and brother. Patient is POD #1 s/p ORIF of right hip intertrochanteric fracture. Patient reports some pain in right hip. Will re-start [place] 5-325 for pain management. Spoke with Cardiology service who recommends to re-start anticoagulation tomorrow AM with Eliquis 2.5 mg QDAY as patient is high risk of bleeding. Patient to continue to work with PT. Patient did c/o of constipation for which miralax was scheduled. Exam Vital Signs Temp Pulse Resp BP Pulse Ox O2 Del Method O2 Flow Rate 97.6 F 70 16 109/62 86 L Room Air 2 04/02/24 08:00 04/02/24 09:17 04/02/24 08:00 04/02/24 09:17 04/02/24 08:00 04/02/24 08:00 04/01/24 20:00 Narrative Exam General: Not in any visible or apparent acute distress, old and frail appearing, alert, pleasant and interactive HEENT: NC/AT, PERRL, EOMI, good conjugate gaze, moist mucous membranes, oropharynx clear, trachea appears midline, no gross LAD Neck: Supple, No masses, No JVD, normal range of motion CVS: S1S2 Regular rate and rhythm, No murmurs, rubs or gallops Lungs: Normal respiratory effort, no wheezing rhonchi or rales, CTAB Abd: Soft, no tenderness to palpation, no guarding, +BS, no organomegaly Ext: No edema, warm well perfused, decreased tone, unable to assess ROM due to recent surgery, BL LE's pilses equal, no signs of vascular compromise Skin: Intact, no rashes, no lesions, no erythema Neuro: AOx3, no gross focal neurological deficits. Objective Labs 04/03/24 09:00 04/02/24 09:33 Labs: Laboratory Results - last 24 hr 04/02/24 09:33 WBC 11.0 H RBC 3.37 L Hgb 9.7 L Hct 28.7 L MCV 85 MCH 28.8 MCHC 33.8 RDW Std Deviation 47.4 H Plt Count 193 Neut % (Auto) 90 H Lymph % (Auto) 5 L [place] % (Auto) 4 Eos % (Auto) 0 Baso % (Auto) 0 Neut # (Auto) 9.9 H Lymph # (Auto) 0.6 L [place] # (Auto) 0.4 Eos # (Auto) 0.0 Baso # (Auto) 0.0 Immature Gran # (Auto) 0.07 H Absolute Nucleated RBC 0.00 Immature Gran % 1 H Nucleated RBC % 0 Sodium 132 L Potassium 3.6 Chloride 104 Carbon Dioxide 21.8 Anion Gap 6 L BUN 25 H Creatinine 0.8 Estim Creat Clear Calc 59.8 L eGFR > 60 BUN/Creatinine Ratio 31 H Glucose 240 H D Calculated Osmolality 276 Calcium 8.9 Corrected Calcium 9.1 AST 20 ALT 15 Alkaline Phosphatase 75 Total Protein 6.2 Albumin 3.7 Globulin 2.5 Albumin/Globulin Ratio 1.5 Quality Measures Quality Measures VTE prophylaxis (Eliquis on hold, Lovenox given for bridge) Advance care planning discussed with:: patient, spouse and sibling Assessment & Plan Assessment Current Active Medications: Generic Name Dose Route Start Last Admin Trade Name Freq PRN Reason Stop Dose Admin Acetaminophen 650 mg 03/29/24 09:16 Acetaminophen 325 Mg Tablet PO 04/28/24 09:15 Q6H PRN PAIN SCALE 1-3 (mild Hydrocodone Bitart/Acetaminophen 1 tab 04/02/24 09:02 04/02/24 09:17 Hydrocodone/Apap 5/325 Tablet PO 04/03/24 09:15 1 tab Q4HR PRN Administration PAIN SCALE 4-6 (Moderate Albuterol/Ipratropium 3 ml 03/29/24 09:18 Albuterol/Ipratropium (Duoneb) Rt Wilda 3 Ml Nebu INH 04/28/24 12:59 Q6HRRT PRN wheezing or SOB Apixaban 2.5 mg 04/03/24 09:00 Apixaban 2.5 Mg Tablet PO 05/03/24 08:59 BID CORETTA Diltiazem HCl 240 mg 03/29/24 13:30 04/02/24 09:17 Diltiazem Cd 120 Mg Capcr PO 04/28/24 13:29 240 mg QDAY CORETTA Administration Diltiazem HCl 15 mg 03/31/24 19:47 Diltiazem Inj 5 Mg/Ml Vial 5 Ml IV 04/30/24 19:46 Q4H PRN Heart rate above 125 bpm Fentanyl Citrate 25 mcg 04/01/24 10:30 Fentanyl Cit Inj 50 Mcg/Ml Amp 2ml IV Q5MIN PRN PAIN SCALE 4-10(Mod-Sev Finasteride 5 mg 03/29/24 09:30 04/02/24 09:18 Finasteride 5 Mg Tablet PO 04/28/24 09:29 5 mg QDAY CORET[place] Administration Hydralazine HCl 5 mg 04/01/24 10:30 Hydralazine Inj 20 Mg/Ml Vial IV Q20MIN PRN SEE COMMENTS Ceftriaxone Sodium/Dextrose 50 mls @ 100 mls/hr 03/29/24 15:04 04/02/24 09:18 Rocephin/D5w 1gm Iv Premix IV 04/05/24 15:03 100 mls/hr QDAY CORETTA Administration Morphine Sulfate 4 mg 04/01/24 12:29 Morphine Sulf Inj 10 Mg/Ml Vial IV 04/06/24 12:28 Q4HR PRN PAIN Ondansetron HCl 4 mg 04/01/24 12:29 04/02/24 09:59 Ondansetron Inj 2 Mg/Ml Inj 2 Ml IV 05/01/24 12:28 4 mg Q6HR PRN Administration NAUSEA OR VOMITING Protocol Pantoprazole Sodium 40 mg 03/29/24 09:30 04/02/24 09:17 Pantoprazole Inj 40 Mg Vial IVP 04/28/24 09:29 40 mg QDAY CORETTA Administration Polyethylene Glycol 17 gm 04/02/24 11:00 Polyethylene Glycol 17 Gm Packet PO 05/02/24 10:59 QDAY CORETTA Tamsulosin HCl 0.4 mg 03/29/24 09:30 04/02/24 09:17 Tamsulosin Hcl 0.4 Mg Capsule PO 04/28/24 09:29 0.4 mg QDAY CORETTA Administration Plan TMrCheng Navarrete is a 88-year-old male with past medical history significant of COPD, chronic bronchitis, asthma, A-fib, BPH, history of skin cancer status post radiation and recurrent kidney stones presents to the ED after a ground-level fall. Imaging revealed right hip fracture. # Acute intertrochanteric fracture right hip s/p ORIF POD #1 ?Due to ground-level fall -Hip/pelvis x-ray- Acute angulated intertrochanteric fracture right hip. -Cervical spine CT-no acute cervical fracture. 6 mm sclerotic focus in the C7 vertebral body, differential would include osteoblastic metastasis. -Head CT was negative for acute hemorrhage, mass effect or midline shift. -Hip CT- Acute comminuted angulated intertrochanteric fracture right hip -Femur x-ray- Acute intertrochanteric fracture right hip Plan: ? Pain management - [place] 5-325 PRN Q4H -Restart Eliquis 2.5 mg once daily on 04/03/2024 #A-fib, rate controlled. ? [id number] of 5 ? resume gomw diltiazem 240 CD once a day and -Hold Eliquis 2.5 mg twice daily (used levonox for bridging) ? EKG showed A-fib with rate control. QTc 447. ? Echocardiogram from September 2023 -Estiamted EF 60-65%. Mild RV dilatation. Severe biatrial dilatation. The acending aorta is mildly dilated. 3.6cm. Moderate MR, TR. Mild AI. Plan: -Patient's bull float finisher is Dr. Bravo, consulted with the following recommendations ? resume diltiazem 240 CD once a day ? Recommended to restart Eliquis 04/03/2024 at 2.5 mg PO QDAY due to high risk of bleed ? Continuous monitoring in telemetry ? Keep mag above 2 and potassium above 4 ? Daily labs ? Monitor for signs symptoms of chest pain and shortness of breath #Nausea vomiting likely medication induced -Patient received morphine every 4 hours for the management of pain from hip fracture -DC'd morphine, [place] ordered -Zofran every 4 hours as needed #Constipation -Patient c/o constipation and not having had BM in several days. most likely medication induced from pain meds -Scheduled Miralax #UTI. #Pyuria. -On urinalysis leukocyte esterase positive, urine WBC 80 -Patient denies dysuria and urinary urgency plan: -Ceftriaxone 1 g daily started 03/29- -monitor daily CBC #Abnormal CT findings. -6 mm sclerotic focus in the C7 vertebral body, differential would include osteoblastic metastasis. -Patient is notified to follow-up outpatient with PCP recommendations #History of nephrolithiasis. #Hematuria. #BPH. #COPD. #Chronic Bronchitis. -Patient is being followed by Dr. Hanna -Per patient patient continues to refuse for surgical treatment of nephrolithiasis plan: -Outpatient follow-up with urologist -Resume home tamsulosin and silodosin Disposition: Medsurg- awaiting surgery on sunday 04/01 DVT Prophylaxis: HOLD, restart eliquis 2.5 mg 04/03/2024 GI Prophylaxis: Pantoprozol-40 IV Diet: regular Code status: Full Patient's case was discussed with supervising attending physician Dr. Fay Salmeron M.D. Internal Medicine PGY-3 Attending Provider Attestation/Addendum Lou Haney DO, attest that I was physically present for the pimentel portions of the service and evaluated the patient with the resident and I reviewed and discussed the case with the resident and agree with the resident's findings and plans of care as documented above Patient seen and evaluated this AM. Daughter and are at bedside. Dressing is clean, dry and intact. Patient states that he has excuciating pain with movement. However, patient has not received any pain medicine since surgery. Patient states morphine makes him nauseous. He states he takes [place] at home. Will order PO [place] as needed for pain control. Will give before PT. Plan to start eliquis in AM. Will bladder train with goal to remove lew catheter.
[2024-04-02] MEDS: POLYETHYLENE GLYCOL 17 GM PACKET PO (11:37)
[2024-04-02 12:04] LABS: Bilirubin,Total 0.4 mg/dL (0.3-1.2)
[2024-04-03] VITALS (12 sets, daily range): BP systolic 98–132; BP diastolic 56–76; PULSE 7–96; RESP 15–23; TEMP 36.3–36.8; O2SAT 94–98
--- NOTE | 2024-04-03 02:22 | PC.NURSE ---
Patient refused q2 turning tonight.
[2024-04-03] MEDS: PANTOPRAZOLE INJ 40 MG VIAL IVP (08:17)
[2024-04-03] MEDS: FINASTERIDE 5 MG TABLET PO (08:17)
[2024-04-03] MEDS: DILTIAZEM CD 120 MG CAPCR 240 MG PO (08:18)
[2024-04-03] MEDS: TAMSULOSIN HCL 0.4 MG CAPSULE PO (08:19)
[2024-04-03] MEDS: cefTRIAXone/D5w 1gm IV premix 50 ML IV (08:19)
[2024-04-03] MEDS: APIXABAN 2.5 MG TABLET PO (08:19)
[2024-04-03 09:13] LABS: Basophils % (Auto) 0 % (0-2.5); Eosinophils % (Auto) 0 % (0-10); Hematocrit 30.9 % (41.0-53.0); Hemoglobin 10.1 g/dL (13.5-16.0); Immature Granulocytes % (Auto) 1 % (0-0); Immature Granulocytes Auto 0.05 Thou/mm3 (0.00-0.00); Lymphocytes # (Auto) 1.2 Thou/mm3 (1.0-4.8); Lymphocytes % (Auto) 11 % (10-50); Mean Corpuscular HGB Conc 32.7 g/dl (31.0-37.0); Mean Corpuscular Hemoglobin 28.3 pg (25.0-35.0); Mean Corpuscular Volume 87 fL (80-100); Monocytes # (Auto) 0.6 Thou/mm3 (0.0-0.8); Monocytes % (Auto) 6 % (0-12); Neutrophils % (Auto) 82 % (37-80); Nucleated Red Blood Cell % 0 /100 WBC (0); Platelet Count 205 Thou/mm3 (140-440); RDW Standard Deviation 47.8 fL (35.1-43.9); Red Blood Count 3.57 Miln/mm3 (4.50-5.90); White Blood Count 10.9 Thou/mm3 (3.8-10.6)
--- NOTE | 2024-04-03 14:22 | ESPR_ITS ---
<Statement entered by Segundo Orantes MD - 04/03/24 16:11> Senior Resident Attestation: I supervised/discussed management plan with business intern physician Dr. Sue, and was involved in the care of this patient. I personally saw and examined the patient and discussed the assessment and plan with the entire medicine team, including my attending. I agree with the assessment and plan as documented. Patient was seen and examined at bedside. No acute overnight events. His pain is well-controlled. His Eliquis was resumed today. Patient will need SNF placement, will begin discharge process tomorrow. Patient's care was discussed with attending physician, Dr. Aponte. Segundo Orantes MD PGY-2. Documentation for date of: 04/03/24 Subjective Subjective Interval history: 04/03: No overnight events, patient seen and examined at bedside this morning. Patient is eating breakfast saturating on room air and endorses minimal pain on the right hip. Patient is status post surgery. Patient states [place] are working well and tolerating his pain. He also had a bowel movement today. Plan to remove Lew catheter today but patient requested if he could keep the Lew 1 more day because he is unable to get out of bed and sometimes hard for him to use the urinal since he is status post surgery and moving positions in bed causes him pain. Patient denies any nausea or vomiting. Patient has no other complaints. Exam Vital Signs Temp Pulse Resp BP Pulse Ox O2 Del Method O2 Flow Rate 97.5 F 64 17 104/56 L 98 Room Air 2 04/03/24 12:00 04/03/24 12:00 04/03/24 12:00 04/03/24 12:00 04/03/24 12:00 04/03/24 12:00 04/01/24 20:00 Narrative Exam GENERAL: A&Ox3 . Awake, mildly in distress from pain NEURO: rn home care grossly intact, moves extremities x4 HEENT: Atraumatic, Normocephalic. mucous membranes moist. Eyes open, symmetrical, & clear HEART: Normal Heart Sounds LUNGS: Clear to auscultation with no wheezing or crackles. ABDOMEN: soft, non-distended, non-tender, bowel sounds heard, no guarding or rebound tenderness SKIN: No Rash or ecchymoses EXTREMITIES: No edema, s/p surgery on R hip Objective Labs 04/03/24 09:00 04/02/24 09:33 Labs: Laboratory Results - last 24 hr 04/03/24 09:00 WBC 10.9 H RBC 3.57 L Hgb 10.1 L Hct 30.9 L MCV 87 MCH 28.3 MCHC 32.7 RDW Std Deviation 47.8 H Plt Count 205 Neut % (Auto) 82 H Lymph % (Auto) 11 [place] % (Auto) 6 Eos % (Auto) 0 Baso % (Auto) 0 Neut # (Auto) 9.0 H Lymph # (Auto) 1.2 [place] # (Auto) 0.6 Eos # (Auto) 0.0 Baso # (Auto) 0.0 Immature Gran # (Auto) 0.05 H Absolute Nucleated RBC 0.00 Immature Gran % 1 H Nucleated RBC % 0 Quality Measures Quality Measures VTE prophylaxis (Restarting Eliquis tomorrow morning 2.5 mg twice daily) Advance care planning discussed with:: patient Assessment & Plan Assessment Current Active Medications: Generic Name Dose Route Start Last Admin Trade Name Freq PRN Reason Stop Dose Admin Acetaminophen 650 mg 03/29/24 09:16 Acetaminophen 325 Mg Tablet PO 04/28/24 09:15 Q6H PRN PAIN SCALE 1-3 (mild Albuterol/Ipratropium 3 ml 03/29/24 09:18 Albuterol/Ipratropium (Duoneb) Rt Wilda 3 Ml Nebu INH 04/28/24 12:59 Q6HRRT PRN wheezing or SOB Apixaban 2.5 mg 04/03/24 09:00 04/03/24 08:19 Apixaban 2.5 Mg Tablet PO 05/03/24 08:59 2.5 mg QDAY CORETTA Administration Diltiazem HCl 240 mg 03/29/24 13:30 04/03/24 08:18 Diltiazem Cd 120 Mg Capcr PO 04/28/24 13:29 240 mg QDAY CORETTA Administration Finasteride 5 mg 03/29/24 09:30 04/03/24 08:17 Finasteride 5 Mg Tablet PO 04/28/24 09:29 5 mg QDAY CORETTA Administration Ceftriaxone Sodium/Dextrose 50 mls @ 100 mls/hr 03/29/24 15:04 04/03/24 08:19 Rocephin/D5w 1gm Iv Premix IV 04/05/24 15:03 100 mls/hr QDAY CORETTA Administration Morphine Sulfate 4 mg 04/01/24 12:29 Morphine Sulf Inj 10 Mg/Ml Vial IV 04/06/24 12:28 Q4HR PRN PAIN Ondansetron HCl 4 mg 04/01/24 12:29 04/02/24 09:59 Ondansetron Inj 2 Mg/Ml Inj 2 Ml IV 05/01/24 12:28 4 mg Q6HR PRN Administration NAUSEA OR VOMITING Protocol Pantoprazole Sodium 40 mg 03/29/24 09:30 04/03/24 08:17 Pantoprazole Inj 40 Mg Vial IVP 04/28/24 09:29 40 mg QDAY CORETTA Administration Polyethylene Glycol 17 gm 04/02/24 11:00 04/03/24 08:16 Polyethylene Glycol 17 Gm Packet PO 05/02/24 10:59 Not Given QDAY CORETTA Tamsulosin HCl 0.4 mg 03/29/24 09:30 04/03/24 08:19 Tamsulosin Hcl 0.4 Mg Capsule PO 04/28/24 09:29 0.4 mg QDAY CORETTA Administration Plan Mr. Navarrete is a 88-year-old male with past medical history significant of COPD, chronic bronchitis, asthma, A-fib, BPH, history of skin cancer status post radiation and recurrent kidney stones presents to the ED after a ground-level fall. Imaging revealed right hip fracture. # Acute intertrochanteric fracture right hip s/p surgery ?Due to ground-level fall -Hip/pelvis x-ray- Acute angulated intertrochanteric fracture right hip. -Cervical spine CT-no acute cervical fracture. 6 mm sclerotic focus in the C7 vertebral body, differential would include osteoblastic metastasis. -Head CT was negative for acute hemorrhage, mass effect or midline shift. -Hip CT- Acute comminuted angulated intertrochanteric fracture right hip -Femur x-ray- Acute intertrochanteric fracture right hip Plan: ?Pain management - [place] 5-325 PRN Q4H -Restarted Eliquis 2.5 mg once daily on 04/03/2024 -Clearance from Ortho pending for D/c to rehab with PT #A-fib, rate controlled. ? [id number] of 5 ? resume home diltiazem 240 CD once a day and -resume home Eliquis 2.5 mg once daily ? EKG showed A-fib with rate control. QTc 447. ? Echocardiogram from September 2023 -Estiamted EF 60-65%. Mild RV dilatation. Severe biatrial dilatation. The acending aorta is mildly dilated. 3.6cm. Moderate MR, TR. Mild AI. Plan: -Patient's furniture and bedding inspector is Dr. Bravo, consulted with the following recommendations ? resume diltiazem 240 CD once a day ? Recommended to restart Eliquis 04/03/2024 at 2.5 mg PO QDAY due to high risk of bleed ? Continuous monitoring in telemetry ? Keep mag above 2 and potassium above 4 ? Daily labs ? Monitor for signs symptoms of chest pain and shortness of breath #Nausea vomiting likely medication induced -Patient received morphine every 4 hours for the management of pain from hip fracture -DC'd morphine, [place] ordered -Zofran every 4 hours as needed #Constipation -Pt. had a bowel movement today -Scheduled Miralax #UTI. #Pyuria. -On urinalysis leukocyte esterase positive, urine WBC 80 -Patient denies dysuria and urinary urgency plan: -Ceftriaxone 1 g daily started 03/29- -monitor daily CBC #Abnormal CT findings. -6 mm sclerotic focus in the C7 vertebral body, differential would include osteoblastic metastasis. -Patient is notified to follow-up outpatient with PCP recommendations #History of nephrolithiasis. #Hematuria. #BPH. #COPD. #Chronic Bronchitis. -Patient is being followed by Dr. Hanna -Per patient patient continues to refuse for surgical treatment of nephrolithiasis plan: -Outpatient follow-up with urologist -Resume home tamsulosin and silodosin Disposition: Medsurg- s/p surgery, waiting for Ortho clearance DVT Prophylaxis: resumed home eliquis 2.5 mg 04/03/2024 GI Prophylaxis: Pantoprozol-40 IV Diet: regular Code status: Full Assessment and plan discussed with my senior resident Dr. Orantes & attending physician Dr. Fay Sue (PGY-1)- Internal medicine resident Attending Provider Attestation/Addendum Lou Haney, DO, attest that I was physically present for the pimentel portions of the service and evaluated the patient with the resident and I reviewed and discussed the case with the resident and agree with the resident's findings and plans of care as documented above Patient seen and evaluated this AM. He states pain is well controlled. Started on eliquis. Will plan for DC to SNF. Continue with current managment. Order placed to remove lew catheter, but patient states he much rather keep it in to avoid a mess in his bed. Patient was adamant he did not want to use the urinal despite counselling. Anticipate DC within next 24-48hrs
--- NOTE | 2024-04-03 15:12 | ESPR_ITS ---
RE: MARY GARRISON : 1935 DATE OF SERVICE: 04/03/2024 S: Mary Garrison is doing better today postop day 2, not have any shortness of breath or chest pain. He is an 88-year-old male with history of atrial fibrillation and came with a fracture of the hip, underwent surgery, internal fixation of the hip with no complications. He is feeling better now. VITAL SIGNS: Shows blood pressure is 104/56, pulse 64. Saturating well on room air. NECK: Supple. No JVD. CHEST: Symmetrical. LUNGS: Clear. HEART: Sounds irregular. No gallops. ABDOMEN: Thin and soft. EXTREMITIES: No edema. NEUROLOGIC: Patient is in good spirits. A: 1. Fracture of the hip, underwent surgery. 2. Atrial fibrillation, rate controlled. 3. Hypertension, now blood pressure on the low side. P: Continue rate control strategy and Eliquis will be restarted. Continue the rest of medications. The patient appears to be stable to go to rehabilitation whenever they find a bed as per discharge planning. DT: 13:25:28 TT: 15:10:00 Ref: [id number] - TID: [id number]
[2024-04-04] VITALS (16 sets, daily range): BP systolic 105–134; BP diastolic 55–89; PULSE 73–109; RESP 16–21; TEMP 36.3–36.8; O2SAT 96–98; BMI 12.0
[2024-04-04 08:03] LABS: Basophils % (Auto) 0 % (0-2.5); Eosinophils # (Auto) 0.2 Thou/mm3 (0.0-0.5); Eosinophils % (Auto) 2 % (0-10); Hematocrit 25.8 % (41.0-53.0); Immature Granulocytes % (Auto) 1 % (0-0); Immature Granulocytes Auto 0.07 Thou/mm3 (0.00-0.00); Lymphocytes # (Auto) 1.4 Thou/mm3 (1.0-4.8); Lymphocytes % (Auto) 16 % (10-50); Mean Corpuscular HGB Conc 32.2 g/dl (31.0-37.0); Mean Corpuscular Hemoglobin 28.1 pg (25.0-35.0); Mean Corpuscular Volume 88 fL (80-100); Monocytes # (Auto) 0.7 Thou/mm3 (0.0-0.8); Monocytes % (Auto) 9 % (0-12); Neutrophils # (Auto) 6.4 Thou/mm3 (1.8-7.7); Neutrophils % (Auto) 73 % (37-80); Nucleated Red Blood Cell % 0 /100 WBC (0); Platelet Count 211 Thou/mm3 (140-440); RDW Standard Deviation 48.1 fL (35.1-43.9); Red Blood Count 2.95 Miln/mm3 (4.50-5.90); White Blood Count 8.7 Thou/mm3 (3.8-10.6)
[2024-04-04 08:14] LABS: Hemoglobin 8.3 g/dL (13.5-16.0)
--- NOTE | 2024-04-04 08:18 | PC.SS ---
Received call from patient's insurance carrier, requesting updated PT note to review for insurance authorization for SNF. Faxed notes to . opt. 8
[2024-04-04 08:30] LABS: Alanine Aminotransferase 24 U/L (10-49); Albumin, Serum 3.4 gm/dL (3.4-4.8); Albumin/Globulin Ratio 1.7 (1.2-2.2); Alkaline Phosphatase 80 U/L (46-116); Anion Gap 5 (7-16); Aspartate Amino Transferase 29 U/L (0-34); BUN/Creatinine Ratio 34 Ratio (12-20); Bilirubin,Total 0.7 mg/dL (0.3-1.2); Blood Urea Nitrogen 24 mg/dL (9-23); Calcium 8.6 mg/dL (8.3-10.6); Calcium (Corrected) 9.1 mg/dL (8.5-10.1); Carbon Dioxide 27.1 mMol/L (20.0-31.0); Chloride 103 mMol/L (98-107); Creatinine (Component) 0.7 mg/dL (0.6-1.3); Estimated Creatinine Clearance 68.4 mL/min (>60); Glucose 99 mg/dL (74-106); Osmolality,Calculated 274 (275-295); Potassium 3.5 mMol/L (3.4-5.1); Sodium 135 mMol/L (136-145); Total Protein 5.4 gm/dL (5.7-8.2); eGFR > 60 See Note
[2024-04-04] MEDS: FINASTERIDE 5 MG TABLET PO (09:13)
[2024-04-04] MEDS: cefTRIAXone/D5w 1gm IV premix 50 ML IV (09:13)
[2024-04-04] MEDS: PANTOPRAZOLE INJ 40 MG VIAL IVP (09:13)
[2024-04-04] MEDS: TAMSULOSIN HCL 0.4 MG CAPSULE PO (09:13)
[2024-04-04] MEDS: APIXABAN 2.5 MG TABLET PO (09:13)
[2024-04-04] MEDS: DILTIAZEM CD 120 MG CAPCR 240 MG PO (09:14)
[2024-04-04] MEDS: POLYETHYLENE GLYCOL 17 GM PACKET PO (09:19)
[2024-04-04] MEDS: HYDROcodone/APAP 5/325 TABLET 1 TAB PO ×2 (09:28→11:21)
--- NOTE | 2024-04-04 10:31 | ESPR_ITS ---
<Statement entered by Cedric Bravo MD - 04/06/24 18:59> Patient is evaluated by me along with resident physician PGY 2 Dr. Silva patient is clinically stable to go to rehabilitation remains in A-fib rate controlled well. 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 Patient fell in the bathroom and lost his balance and landed on his right leg. Has been complaining of right hip pain and inability to move his right lower extremity. He also endorsed hitting his head but denied any loss of consciousness. Endorses nausea. Denied any dizziness, lightheadedness, nausea, vomiting, chest pain, shortness of breath., Abdominal pain or any other complaints. In the ED, patient was vitally stable. Labs revealed stable hemoglobin at 12.5. Chemistry panel was unremarkable. Kidney function stable with creatinine at 1.0. Troponin I was negative. Urine analysis showed trace proteinuria and blood 3+ with RBCs 4697 and WBC 80s with positive leukocyte esterase. U tox was negative. Pending urine culture. CT head was negative for any acute changes. CT cervical spine was negative for fracture. CT scan of the right hip showed acute displaced intertrochanteric fracture of right femur. Ortho was consulted for hip fracture repair. PMH: As above Allergies: NKDA Home medications: Diltiazem CD240 once a day, Eliquis 2.5 mg twice daily, famotidine 20 mg, finasteride 5 mg, memantine 5 mg twice daily, mirtazapine 45 mg, tamsulosin 0.4 mg Cardiology team consulted for cardiac clearance and patient does follow-up with Dr. Bravo as outpatient. Patient is admitted for acute displaced intertrochanteric fracture right femur post ground-level fall. Head CT and cervical spine x-ray was negative. Troponin I was negative. EKG showed A-fib with rate controlled pulse 92 bpm. QTc 447. Patient has stable hemoglobin. Chemistry panel is unremarkable. Kidney function stable. UA does show significant gross hematuria and pyuria. Recommendations as per primary care team. Patient was taking Cardizem CD 240 once a day for A-fib recommended to continue that and hold Eliquis for now given patient needs acute intertrochanteric fracture hip repair and continue restart Eliquis 2.5 mg 48 hours after surgery. Cardiology will follow the case closely. Ortho following the case for right hip fracture repair. Continue treatment for UTI with ceftriaxone. -we added lovenox 70 mgx1 for now and lovenox 70 mg for morning to bridge due to high risk of stroke. All labs and orders were reviewed. 03/30/2024: Patient was seen and examined at the bedside. Vitals stable. Labs revealed hemoglobin at 9.2. Platelet count 213. Chemistry panel was unremarkable. Patient was bridged with Lovenox yesterday due to high risk of stroke. Currently awaiting surgery scheduled on Thursday. Pt refused lovenox dose at night therefore lovenox 80 mgx1 ordered for morning. All labs and orders were reviewed. 03/31/2024: Patient was seen and examined at the bedside. Overnight rapid response was called due to A-fib with RVR heart rate in 170s night team administered Cardizem 10 mg IV x 1 and heart rate dropped to 110s. Currently on Cardizem CD 240 once a day. Morning labs revealed stable hemoglobin at 9.9. Chemistry panel was unremarkable. Kidney functions stable. MRSA screen negative. Patient received Lovenox in the morning. Awaiting surgery for tomorrow for hip fracture. All labs and orders were reviewed. 04/01/24: Patient was seen and examined at the bedside. Patient appears to be doing well after the surgery. Morning vitals showed stable blood pressure and heart rate. Saturating well on room air. Labs showed mild drop in hemoglobin to 8.5. Stable platelets. Chemistry panel was unremarkable. Kidney function showed BUN 27 and creatinine 0.8. Blood glucose 125. Patient underwent open reduction internal fixation for intertrochanteric fracture right hip. Recommended to start Eliquis 2.5 once a day 48 hours later. 04/02/2024: Patient was seen and examined at the bedside vitals stable. Labs revealed mild leukocytosis hemoglobin stable at 9.7. Chemistry panel was unremarkable. Blood glucose 240. Will likely start Eliquis tomorrow morning. 04/04/2024: Patient was seen and examined at the bedside. Vitals showed mildly elevated blood pressure 134/79. Labs revealed hemoglobin 8.3. Chemistry panel was unremarkable. Recommended to continue Eliquis 2.5 mg once a day daily. Continue diltiazem 240 CD once a day for heart rate control. All labs and orders were reviewed. Exam Vital Signs Temp Pulse Resp BP Pulse Ox O2 Del Method O2 Flow Rate 97.6 F 109 H 18 123/89 H 98 Room Air 2 04/04/24 07:49 04/04/24 09:14 04/04/24 07:49 04/04/24 09:14 04/04/24 07:49 04/04/24 07:49 04/04/24 07:49 Narrative Exam GENERAL APPEARANCE: AxOx3, generally well-appearing male in no distress HEENT: NC, AT. MMM. EOMI, clear conjunctiva, oropharynx clear. NECK: Supple without lymphadenopathy. No stiffness or restricted ROM. HEART: irregular rate and rhythm, normal S1/S2, no m/r/g LUNGS: Bilateral mild decreased breath sounds on auscultation ABDOMEN: Soft, nontender, nondistended with good bowel sounds heard. EXTREMITIES: Patient's RLE is shortened and externally rotated. NEUROLOGICAL: Grossly nonfocal. Alert and orientedx3 CN not formally tested but appear grossly intact. Skin: Warm and dry without any rash. Psych: Appropriate mood and affect Objective Labs 04/04/24 07:43 04/04/24 07:43 Labs: Laboratory Results - last 24 hr 03/31/24 04/04/24 16:01 07:43 WBC 8.7 RBC 2.95 L Hgb 8.3 L Hct 25.8 L MCV 88 MCH 28.1 MCHC 32.2 RDW Std Deviation 48.1 H Plt Count 211 Neut % (Auto) 73 Lymph % (Auto) 16 [place] % (Auto) 9 Eos % (Auto) 2 Baso % (Auto) 0 Neut # (Auto) 6.4 Lymph # (Auto) 1.4 [place] # (Auto) 0.7 Eos # (Auto) 0.2 Baso # (Auto) 0.0 Immature Gran # (Auto) 0.07 H Absolute Nucleated RBC 0.00 Immature Gran % 1 H Nucleated RBC % 0 Sodium 135 L Potassium 3.5 Chloride 103 Carbon Dioxide 27.1 Anion Gap 5 L BUN 24 H Creatinine 0.7 Estim Creat Clear Calc 68.4 eGFR > 60 BUN/Creatinine Ratio 34 H Glucose 99 D Calculated Osmolality 274 L Calcium 8.6 Corrected Calcium 9.1 Total Bilirubin 0.7 AST 29 ALT 24 Alkaline Phosphatase 80 Total Protein 5.4 L Albumin 3.4 Globulin 2.0 L Albumin/Globulin Ratio 1.7 Crossmatch See Detail Quality Measures Quality Measures VTE prophylaxis (Eliquis 2.5 mg once a day) Advance care planning discussed with:: patient Assessment & Plan Assessment Current Active Medications: Generic Name Dose Route Start Last Admin Trade Name Freq PRN Reason Stop Dose Admin Acetaminophen 650 mg 03/29/24 09:16 Acetaminophen 325 Mg Tablet PO 04/28/24 09:15 Q6H PRN PAIN SCALE 1-3 (mild Hydrocodone Bitart/Acetaminophen 1 tab 04/04/24 10:14 Hydrocodone/Apap 5/325 Tablet PO 04/09/24 10:13 Q6HR PRN PAIN 4-10 Albuterol/Ipratropium 3 ml 03/29/24 09:18 Albuterol/Ipratropium (Duoneb) Rt Wilda 3 Ml Nebu INH 04/28/24 12:59 Q6HRRT PRN wheezing or SOB Apixaban 2.5 mg 04/03/24 09:00 04/04/24 09:13 Apixaban 2.5 Mg Tablet PO 05/03/24 08:59 2.5 mg QDAY CORETTA Administration Diltiazem HCl 240 mg 03/29/24 13:30 04/04/24 09:14 Diltiazem Cd 120 Mg Capcr PO 04/28/24 13:29 240 mg QDAY CORETTA Administration Finasteride 5 mg 03/29/24 09:30 04/04/24 09:13 Finasteride 5 Mg Tablet PO 04/28/24 09:29 5 mg QDAY CORETTA Administration Ceftriaxone Sodium/Dextrose 50 mls @ 100 mls/hr 03/29/24 15:04 04/04/24 09:43 Rocephin/D5w 1gm Iv Premix IV 04/05/24 15:03 Infused QDAY CORETTA Infusion Ondansetron HCl 4 mg 04/01/24 12:29 04/02/24 09:59 Ondansetron Inj 2 Mg/Ml Inj 2 Ml IV 05/01/24 12:28 4 mg Q6HR PRN Administration NAUSEA OR VOMITING Protocol Pantoprazole Sodium 40 mg 03/29/24 09:30 04/04/24 09:13 Pantoprazole Inj 40 Mg Vial IVP 04/28/24 09:29 40 mg QDAY CORETTA Administration Polyethylene Glycol 17 gm 04/02/24 11:00 04/04/24 09:19 Polyethylene Glycol 17 Gm Packet PO 05/02/24 10:59 17 gm QDAY CORETTA Administration Tamsulosin HCl 0.4 mg 03/29/24 09:30 04/04/24 09:13 Tamsulosin Hcl 0.4 Mg Capsule PO 04/28/24 09:29 0.4 mg QDAY CORETTA Administration Plan The patient is an 88-year-old male with past medical hx chronic persistent atrial fibrillation with EDGARDO score of 3 on eliquis 2.5 twice daily,HTN, 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 Admitted for right intratrochanteric fracture. # A-fib rate controlled # ORIF for intertrochanteric fracture right hip ? [id number] of 5 ? Patient was taking diltiazem 240 CD once a day and Eliquis 2.5 mg twice daily. ? EKG showed A-fib with rate control. QTc 447. ? Echocardiogram from September 2023 showed No LA/ GABI thrombus and no PFO or ASD GABI measurements: 0?(diameter: 2.8cm/Depth 2.5cm.), 45?(diameter 2.5cm/Depth 2.6cm), 90?(diameter 2.5cm/Depth 2.7cm), 135?(diameter 2.6cm/Depth 2.8cm). Normal LV size and function. Estiamted EF 60-65%. Mild RV dilatation. Normal RV function. Severe biatrial dilatation. The acending aorta is mildly dilated. 3.6cm. Moderate MR, TR. Mild AI. -we added lovenox 70 mgx1 for now and lovenox 70 mg for morning to bridge due to high risk of stroke ?Rapid response was called last night due to A-fib with RVR night team gave Cardizem 10 mg IV x 1 and currently rate controlled ? Patient underwent open reduction internal fixation for intertrochanteric fracture right hip today, 04/01 Plan: ? Heart rate remains controlled on Cardizem CD 240. ? Recommended to start Eliquis 2.5 once a day to avoid bleeding risk as patient had episodes of hematuria in the past ? Continue Cardizem 15 mg IV Q4 hourly in case of heart rate above 125 bpm ? Recommended to resume diltiazem 240 CD once a day ? Continuous monitoring in telemetry ? Keep mag above 2 and potassium above 4 ? Daily labs ? Monitor for signs symptoms of chest pain and shortness of breath # History of hypertension ? Patient was recently discharged from the hospital in August 2023 after workup for stroke on Eliquis. Plan: ? Continue Eliquis 2.5 mg once a day ? Continue statin therapy ? Monitor vitals ? Pain management as needed # ORIF for intertrochanteric fracture right hip # Acute intertrochanteric fracture right hip ?Due to ground-level fall ? Ortho consulted and following the case. ? Pain management as needed # UTI # BPH # COPD # Chronic Bronchitis # History of cerebellar stroke multi infarction embolic phenomena due to A-fib on Eliquis # History of nephrolithiasis # Normocytic anemia # Hematuria and pyuria and UTI per urinalysis Rest of the management as per primary care team. Thank you very much for consulting cardiology team.starting Eliquis 2.5 mg once a day. Continue Cardizem CD 240 once a day. Heart rate remains controlled. -- Plan of care discussed with director quality assurance, Dr. Lawrence Silva MD, PGY 2
--- NOTE | 2024-04-04 11:54 | PC.SS ---
Addendum entered by KENNEDI Brower 04/04/24 15:05: Rounding note: patient pending transfusion and insurance authorization to SNF. Original Note: SS update: patient pending transfusion.
--- NOTE | 2024-04-04 14:38 | ESPR_ITS ---
<Statement entered by Segundo Orantes MD - 04/04/24 15:30> Senior Resident Attestation: I supervised/discussed management plan with manager of internal audit physician Dr. Sue, and was involved in the care of this patient. I personally saw and examined the patient and discussed the assessment and plan with the entire medicine team, including my attending. I agree with the assessment and plan as documented. Patient was seen and examined at bedside. No acute overnight events. Orthopedic surgeon recommended to transfuse 1 unit of blood today prior to discharge. His Hall will be removed today and patient will be voiding trial. Anticipate discharge tomorrow. Patient's care was discussed with attending physician, Dr. Aponte. Segundo Orantes MD PGY-2. Documentation for date of: 04/04/24 Subjective Subjective Interval history: 04/03: No overnight events, patient seen and examined at bedside this morning. Patient is eating breakfast saturating on room air and endorses minimal pain on the right hip. Patient is status post surgery. Patient states Burney are working well and tolerating his pain. He also had a bowel movement today. Plan to remove Hall catheter today but patient requested if he could keep the Hall 1 more day because he is unable to get out of bed and sometimes hard for him to use the urinal since he is status post surgery and moving positions in bed causes him pain. Patient denies any nausea or vomiting. Patient has no other complaints. 04/04: no overnight events. pt. seen and examined at bedside this morning. Pt. states he has increasing pain today which is unbearable. Patient states that the Burney helps with the pain but if he tries to move then that aggravates his pain. Patient denies any abdominal pain nausea or vomiting. He is able to tolerate food and eating majority of his meals. patient states that he had a bowel movement yesterday. Patient's Eliquis was resumed yesterday. After speaking to Dr. Lundberg regarding plan is. Requested patient to receive 1 unit of RBC and dressing change and continue PT in rehab. Patient has no other complaints. Exam Vital Signs Temp Pulse Resp BP Pulse Ox O2 Del Method O2 Flow Rate 97.8 F 86 18 134/79 H 98 Room Air 2 04/04/24 11:42 04/04/24 11:42 04/04/24 11:42 04/04/24 11:42 04/04/24 11:42 04/04/24 11:42 04/04/24 11:42 Narrative Exam GENERAL: A&Ox3 . Awake, mildly in distress from pain NEURO: talent acquisition administrator grossly intact, moves extremities x4 HEENT: Atraumatic, Normocephalic. mucous membranes moist. Eyes open, symmetrical, & clear HEART: Normal Heart Sounds LUNGS: Clear to auscultation with no wheezing or crackles. ABDOMEN: soft, non-distended, non-tender, bowel sounds heard, no guarding or rebound tenderness SKIN: No Rash or ecchymoses EXTREMITIES: No edema, s/p surgery on R hip Objective Labs 04/04/24 07:43 04/04/24 07:43 Labs: Laboratory Results - last 24 hr 03/31/24 04/04/24 16:01 07:43 WBC 8.7 RBC 2.95 L Hgb 8.3 L Hct 25.8 L MCV 88 MCH 28.1 MCHC 32.2 RDW Std Deviation 48.1 H Plt Count 211 Neut % (Auto) 73 Lymph % (Auto) 16 [place] % (Auto) 9 Eos % (Auto) 2 Baso % (Auto) 0 Neut # (Auto) 6.4 Lymph # (Auto) 1.4 [place] # (Auto) 0.7 Eos # (Auto) 0.2 Baso # (Auto) 0.0 Immature Gran # (Auto) 0.07 H Absolute Nucleated RBC 0.00 Immature Gran % 1 H Nucleated RBC % 0 Sodium 135 L Potassium 3.5 Chloride 103 Carbon Dioxide 27.1 Anion Gap 5 L BUN 24 H Creatinine 0.7 Estim Creat Clear Calc 68.4 eGFR > 60 BUN/Creatinine Ratio 34 H Glucose 99 D Calculated Osmolality 274 L Calcium 8.6 Corrected Calcium 9.1 Total Bilirubin 0.7 AST 29 ALT 24 Alkaline Phosphatase 80 Total Protein 5.4 L Albumin 3.4 Globulin 2.0 L Albumin/Globulin Ratio 1.7 Crossmatch See Detail Quality Measures Quality Measures VTE prophylaxis (Eliquis 2.5 mg once a day) Advance care planning discussed with:: patient Assessment & Plan Assessment Current Active Medications: Generic Name Dose Route Start Last Admin Trade Name Freq PRN Reason Stop Dose Admin Acetaminophen 650 mg 03/29/24 09:16 Acetaminophen 325 Mg Tablet PO 04/28/24 09:15 Q6H PRN PAIN SCALE 1-3 (mild Hydrocodone Bitart/Acetaminophen 1 tab 04/04/24 13:39 Hydrocodone/Apap 10/325 Tab PO 04/09/24 13:35 Q6HR PRN PAIN SCALE 4-10(Mod-Sev Albuterol/Ipratropium 3 ml 03/29/24 09:18 Albuterol/Ipratropium (Duoneb) Rt Wilda 3 Ml Nebu INH 04/28/24 12:59 Q6HRRT PRN wheezing or SOB Apixaban 2.5 mg 04/03/24 09:00 04/04/24 09:13 Apixaban 2.5 Mg Tablet PO 05/03/24 08:59 2.5 mg QDAY CORETTA Administration Diltiazem HCl 240 mg 03/29/24 13:30 04/04/24 09:14 Diltiazem Cd 120 Mg Capcr PO 04/28/24 13:29 240 mg QDAY CORETTA Administration Finasteride 5 mg 03/29/24 09:30 04/04/24 09:13 Finasteride 5 Mg Tablet PO 04/28/24 09:29 5 mg QDAY CORETTA Administration Ceftriaxone Sodium/Dextrose 50 mls @ 100 mls/hr 03/29/24 15:04 04/04/24 09:43 Rocephin/D5w 1gm Iv Premix IV 04/05/24 15:03 Infused QDAY CORETTA Infusion Ondansetron HCl 4 mg 04/01/24 12:29 04/02/24 09:59 Ondansetron Inj 2 Mg/Ml Inj 2 Ml IV 05/01/24 12:28 4 mg Q6HR PRN Administration NAUSEA OR VOMITING Protocol Pantoprazole Sodium 40 mg 03/29/24 09:30 04/04/24 09:13 Pantoprazole Inj 40 Mg Vial IVP 04/28/24 09:29 40 mg QDAY CORETTA Administration Polyethylene Glycol 17 gm 04/02/24 11:00 04/04/24 09:19 Polyethylene Glycol 17 Gm Packet PO 05/02/24 10:59 17 gm QDAY CORETTA Administration Tamsulosin HCl 0.4 mg 03/29/24 09:30 04/04/24 09:13 Tamsulosin Hcl 0.4 Mg Capsule PO 04/28/24 09:29 0.4 mg QDAY CORETTA Administration Plan Mr. Navarrete is a 88-year-old male with past medical history significant of COPD, chronic bronchitis, asthma, A-fib, BPH, history of skin cancer status post radiation and recurrent kidney stones presents to the ED after a ground-level fall. Imaging revealed right hip fracture. # Acute intertrochanteric fracture right hip s/p surgery ?Due to ground-level fall -Hip/pelvis x-ray- Acute angulated intertrochanteric fracture right hip. -Cervical spine CT-no acute cervical fracture. 6 mm sclerotic focus in the C7 vertebral body, differential would include osteoblastic metastasis. -Head CT was negative for acute hemorrhage, mass effect or midline shift. -Hip CT- Acute comminuted angulated intertrochanteric fracture right hip -Femur x-ray- Acute intertrochanteric fracture right hip Plan: ?Pain management - Burney 10-325 PRN Q6H -Restarted Eliquis 2.5 mg once daily on 04/03/2024 -Clearance from Ortho pending for D/c to rehab with PT -Per Dr. Lundberg patient is given 1 unit RBC and dressing change -Type and cross ordered, H&H posttransfusion ordered -PT ordered #A-fib, rate controlled. ? [id number] of 5 ? resume home diltiazem 240 CD once a day and -resume home Eliquis 2.5 mg once daily ? EKG showed A-fib with rate control. QTc 447. ? Echocardiogram from September 2023 -Estiamted EF 60-65%. Mild RV dilatation. Severe biatrial dilatation. The acending aorta is mildly dilated. 3.6cm. Moderate MR, TR. Mild AI. Plan: -Patient's firearms instructor is Dr. Bravo, consulted with the following recommendations ? resume diltiazem 240 CD once a day ? Recommended to restart Eliquis 04/03/2024 at 2.5 mg PO QDAY due to high risk of bleed ? Continuous monitoring in telemetry ? Keep mag above 2 and potassium above 4 ? Daily labs ? Monitor for signs symptoms of chest pain and shortness of breath #Nausea vomiting likely medication induced -Patient received morphine every 4 hours for the management of pain from hip fracture -DC'd morphine, Burney ordered -Zofran every 4 hours as needed #Constipation -Pt. had a bowel movement today -Scheduled Miralax #UTI. #Pyuria. -On urinalysis leukocyte esterase positive, urine WBC 80 -Patient denies dysuria and urinary urgency plan: -Ceftriaxone 1 g daily started 03/29- -monitor daily CBC #Abnormal CT findings. -6 mm sclerotic focus in the C7 vertebral body, differential would include osteoblastic metastasis. -Patient is notified to follow-up outpatient with PCP recommendations #History of nephrolithiasis. #Hematuria. #BPH. #COPD. #Chronic Bronchitis. -Patient is being followed by Dr. Hanna -Per patient patient continues to refuse for surgical treatment of nephrolithiasis plan: -Outpatient follow-up with urologist -Resume home tamsulosin and silodosin Disposition: [facility]- s/p surgery, waiting for Ortho clearance DVT Prophylaxis: resumed home eliquis 2.5 mg 04/03/2024 GI Prophylaxis: Pantoprozol-40 IV Diet: regular Code status: Full Assessment and plan discussed with my senior resident Dr. Orantes & attending physician Dr. Fay Sue (PGY-1)- Internal medicine resident Attending Provider Attestation/Addendum Lou Haney, , attest that I was physically present for the pimentel portions of the service and evaluated the patient with the resident and I reviewed and discussed the case with the resident and agree with the resident's findings and plans of care as documented above Patient seen and evaluated this AM. Patient was in significant pain from sitting up at edge of bed. Patient was not able to stand with physical therapy due to pain and became very tachycardic. Will increase dose of Burney to 10/325 q6h. Ortho recommends transfusing 1 unit of pRBCs. Will type and cross. Continue with pain control. Anticipate DC within next 24hrs if patient condition remains stable
[2024-04-04 22:33] LABS: Hematocrit 31.5 % (41.0-53.0); Hemoglobin 10.5 g/dL (13.5-16.0)
[2024-04-05] VITALS (7 sets, daily range): BP systolic 99–116; BP diastolic 63–78; PULSE 79–108; RESP 16–21; TEMP 36.2–36.6; O2SAT 95–97
[2024-04-05 08:47] LABS: Basophils % (Auto) 0 % (0-2.5); Eosinophils # (Auto) 0.2 Thou/mm3 (0.0-0.5); Eosinophils % (Auto) 2 % (0-10); Hemoglobin 12.2 g/dL (13.5-16.0); Immature Granulocytes % (Auto) 1 % (0-0); Immature Granulocytes Auto 0.06 Thou/mm3 (0.00-0.00); Lymphocytes # (Auto) 1.4 Thou/mm3 (1.0-4.8); Lymphocytes % (Auto) 14 % (10-50); Mean Corpuscular Hemoglobin 28.5 pg (25.0-35.0); Mean Corpuscular Volume 86 fL (80-100); Monocytes # (Auto) 0.7 Thou/mm3 (0.0-0.8); Monocytes % (Auto) 7 % (0-12); Neutrophils # (Auto) 7.6 Thou/mm3 (1.8-7.7); Neutrophils % (Auto) 77 % (37-80); Nucleated Red Blood Cell % 0 /100 WBC (0); Platelet Count 220 Thou/mm3 (140-440); RDW Standard Deviation 46.8 fL (35.1-43.9); Red Blood Count 4.28 Miln/mm3 (4.50-5.90); White Blood Count 9.9 Thou/mm3 (3.8-10.6)
--- NOTE | 2024-04-05 09:14 | PC.SS ---
Addendum entered by KENNEDI Brower 04/05/24 09:17: Received voicemail from patient's daughter, Cadence . Returned call and provided her with a voicemail. Original Note: SS update: contacted [facility] and spoke with Aline, she informs pending insurance authorization, she will contact the patient's insurance carrier for update.
[2024-04-05 09:15] LABS: Alanine Aminotransferase 22 U/L (10-49); Albumin, Serum 3.8 gm/dL (3.4-4.8); Albumin/Globulin Ratio 1.5 (1.2-2.2); Alkaline Phosphatase 98 U/L (46-116); Anion Gap 8 (7-16); Aspartate Amino Transferase 24 U/L (0-34); BUN/Creatinine Ratio 23 Ratio (12-20); Bilirubin,Total 1.5 mg/dL (0.3-1.2); Blood Urea Nitrogen 16 mg/dL (9-23); Calcium 8.7 mg/dL (8.3-10.6); Calcium (Corrected) 8.9 mg/dL (8.5-10.1); Carbon Dioxide 24.4 mMol/L (20.0-31.0); Chloride 100 mMol/L (98-107); Creatinine (Component) 0.7 mg/dL (0.6-1.3); Estimated Creatinine Clearance 68.4 mL/min (>60); Globulin 2.5 gm/dL (2.3-3.5); Glucose 122 mg/dL (74-106); Osmolality,Calculated 266 (275-295); Potassium 3.8 mMol/L (3.4-5.1); Sodium 132 mMol/L (136-145); Total Protein 6.3 gm/dL (5.7-8.2); eGFR > 60 See Note
[2024-04-05] MEDS: TAMSULOSIN HCL 0.4 MG CAPSULE PO (09:31)
[2024-04-05] MEDS: DILTIAZEM CD 120 MG CAPCR 240 MG PO (09:31)
[2024-04-05] MEDS: APIXABAN 2.5 MG TABLET PO (09:32)
[2024-04-05] MEDS: FINASTERIDE 5 MG TABLET PO (09:33)
[2024-04-05] MEDS: cefTRIAXone/D5w 1gm IV premix 50 ML IV (09:33)
[2024-04-05] MEDS: HYDROcodone/APAP 10/325 TAB PO ×2 (09:34→15:04)
[2024-04-05] MEDS: PANTOPRAZOLE INJ 40 MG VIAL IVP (09:34)
[2024-04-05] MEDS: POLYETHYLENE GLYCOL 17 GM PACKET PO (09:35)
--- NOTE | 2024-04-05 09:57 | ESPR_ITS ---
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 Patient fell in the bathroom and lost his balance and landed on his right leg. Has been complaining of right hip pain and inability to move his right lower extremity. He also endorsed hitting his head but denied any loss of consciousness. Endorses nausea. Denied any dizziness, lightheadedness, nausea, vomiting, chest pain, shortness of breath., Abdominal pain or any other complaints. In the ED, patient was vitally stable. Labs revealed stable hemoglobin at 12.5. Chemistry panel was unremarkable. Kidney function stable with creatinine at 1.0. Troponin I was negative. Urine analysis showed trace proteinuria and blood 3+ with RBCs 4697 and WBC 80s with positive leukocyte esterase. U tox was negative. Pending urine culture. CT head was negative for any acute changes. CT cervical spine was negative for fracture. CT scan of the right hip showed acute displaced intertrochanteric fracture of right femur. Ortho was consulted for hip fracture repair. PMH: As above Allergies: NKDA Home medications: Diltiazem CD240 once a day, Eliquis 2.5 mg twice daily, famotidine 20 mg, finasteride 5 mg, memantine 5 mg twice daily, mirtazapine 45 mg, tamsulosin 0.4 mg Cardiology team consulted for cardiac clearance and patient does follow-up with Dr. Bravo as outpatient. Patient is admitted for acute displaced intertrochanteric fracture right femur post ground-level fall. Head CT and cervical spine x-ray was negative. Troponin I was negative. EKG showed A-fib with rate controlled pulse 92 bpm. QTc 447. Patient has stable hemoglobin. Chemistry panel is unremarkable. Kidney function stable. UA does show significant gross hematuria and pyuria. Recommendations as per primary care team. Patient was taking Cardizem CD 240 once a day for A-fib recommended to continue that and hold Eliquis for now given patient needs acute intertrochanteric fracture hip repair and continue restart Eliquis 2.5 mg 48 hours after surgery. Cardiology will follow the case closely. Ortho following the case for right hip fracture repair. Continue treatment for UTI with ceftriaxone. -we added lovenox 70 mgx1 for now and lovenox 70 mg for morning to bridge due to high risk of stroke. All labs and orders were reviewed. 03/30/2024: Patient was seen and examined at the bedside. Vitals stable. Labs revealed hemoglobin at 9.2. Platelet count 213. Chemistry panel was unremarkable. Patient was bridged with Lovenox yesterday due to high risk of stroke. Currently awaiting surgery scheduled on Thursday. Pt refused lovenox dose at night therefore lovenox 80 mgx1 ordered for morning. All labs and orders were reviewed. 03/31/2024: Patient was seen and examined at the bedside. Overnight rapid response was called due to A-fib with RVR heart rate in 170s night team administered Cardizem 10 mg IV x 1 and heart rate dropped to 110s. Currently on Cardizem CD 240 once a day. Morning labs revealed stable hemoglobin at 9.9. Chemistry panel was unremarkable. Kidney functions stable. MRSA screen negative. Patient received Lovenox in the morning. Awaiting surgery for tomorrow for hip fracture. All labs and orders were reviewed. 04/01/24: Patient was seen and examined at the bedside. Patient appears to be doing well after the surgery. Morning vitals showed stable blood pressure and heart rate. Saturating well on room air. Labs showed mild drop in hemoglobin to 8.5. Stable platelets. Chemistry panel was unremarkable. Kidney function showed BUN 27 and creatinine 0.8. Blood glucose 125. Patient underwent open reduction internal fixation for intertrochanteric fracture right hip. Recommended to start Eliquis 2.5 once a day 48 hours later. 04/02/2024: Patient was seen and examined at the bedside vitals stable. Labs revealed mild leukocytosis hemoglobin stable at 9.7. Chemistry panel was unremarkable. Blood glucose 240. Will likely start Eliquis tomorrow morning. 04/04/2024: Patient was seen and examined at the bedside. Patient had hip pain consistent and was excruciating with mobility. Vitals showed mildly elevated blood pressure 134/79. Labs revealed hemoglobin 8.3. Chemistry panel was unremarkable. Recommended to continue Eliquis 2.5 mg once a day daily. Continue diltiazem 240 CD once a day for heart rate control. All labs and orders were reviewed. 04/05/2024: Patient was seen and examined at the bedside. He endorses right hip pain. He has been getting pain management and received PRBC transfusion as per primary team discussion with orthopedics Dr. Angulo. Today vitals showed blood pressure on softer side, heart rate 83. Afebrile and saturating well on room air. Labs showed hemoglobin 12.2 posttransfusion and stable platelets. Chemistry panel was unremarkable. T. bili 1.5. Patient will benefit from PT and rehab. Patient is stable from cardiology standpoint to be discharged. Exam Vital Signs Temp Pulse Resp BP Pulse Ox O2 Del Method O2 Flow Rate 97.7 F 83 16 105/66 95 Room Air 0 04/05/24 09:11 04/05/24 09:31 04/05/24 09:11 04/05/24 09:31 04/05/24 09:11 04/05/24 09:11 04/05/24 00:00 Narrative Exam GENERAL APPEARANCE: AxOx3, generally well-appearing male in no distress HEENT: NC, AT. MMM. EOMI, clear conjunctiva, oropharynx clear. NECK: Supple without lymphadenopathy. No stiffness or restricted ROM. HEART: irregular rate and rhythm, normal S1/S2, no m/r/g LUNGS: Bilateral mild decreased breath sounds on auscultation ABDOMEN: Soft, nontender, nondistended with good bowel sounds heard. EXTREMITIES: Post right hip surgery covered in surgical dressing. NEUROLOGICAL: Grossly nonfocal. Alert and orientedx3 CN not formally tested but appear grossly intact. Skin: Warm and dry without any rash. Psych: Appropriate mood and affect Objective Labs 04/05/24 08:04 04/05/24 08:04 Labs: Laboratory Results - last 24 hr 04/04/24 04/04/24 04/05/24 14:19 22:13 08:04 WBC 9.9 RBC 4.28 L Hgb 10.5 L D 12.2 L Hct 31.5 L 37.0 L MCV 86 MCH 28.5 MCHC 33.0 RDW Std Deviation 46.8 H Plt Count 220 Neut % (Auto) 77 Lymph % (Auto) 14 [place] % (Auto) 7 Eos % (Auto) 2 Baso % (Auto) 0 Neut # (Auto) 7.6 Lymph # (Auto) 1.4 [place] # (Auto) 0.7 Eos # (Auto) 0.2 Baso # (Auto) 0.0 Immature Gran # (Auto) 0.06 H Absolute Nucleated RBC 0.00 Immature Gran % 1 H Nucleated RBC % 0 Sodium 132 L Potassium 3.8 Chloride 100 Carbon Dioxide 24.4 Anion Gap 8 BUN 16 Creatinine 0.7 Estim Creat Clear Calc 68.4 eGFR > 60 BUN/Creatinine Ratio 23 H Glucose 122 H Calculated Osmolality 266 L Calcium 8.7 Corrected Calcium 8.9 Total Bilirubin 1.5 H D AST 24 ALT 22 Alkaline Phosphatase 98 D Total Protein 6.3 Albumin 3.8 Globulin 2.5 Albumin/Globulin Ratio 1.5 Blood Type O Positive Antibody Screen NEGATIVE Crossmatch See Detail Blood Bank Wristband ID Yes Quality Measures Quality Measures VTE prophylaxis (Eliquis 2.5 mg once a day) Advance care planning discussed with:: patient Assessment & Plan Assessment Current Active Medications: Generic Name Dose Route Start Last Admin Trade Name Freq PRN Reason Stop Dose Admin Acetaminophen 650 mg 03/29/24 09:16 Acetaminophen 325 Mg Tablet PO 04/28/24 09:15 Q6H PRN PAIN SCALE 1-3 (mild Hydrocodone Bitart/Acetaminophen 1 tab 04/04/24 13:39 04/05/24 09:34 Hydrocodone/Apap 10/325 Tab PO 04/09/24 13:35 1 tab Q6HR PRN Administration PAIN SCALE 4-10(Mod-Sev Albuterol/Ipratropium 3 ml 03/29/24 09:18 Albuterol/Ipratropium (Duoneb) Rt Wilda 3 Ml Nebu INH 04/28/24 12:59 Q6HRRT PRN wheezing or SOB Apixaban 2.5 mg 04/03/24 09:00 04/05/24 09:32 Apixaban 2.5 Mg Tablet PO 05/03/24 08:59 2.5 mg QDAY CORETTA Administration Diltiazem HCl 240 mg 03/29/24 13:30 04/05/24 09:31 Diltiazem Cd 120 Mg Capcr PO 04/28/24 13:29 240 mg QDAY CORETTA Administration Finasteride 5 mg 03/29/24 09:30 04/05/24 09:33 Finasteride 5 Mg Tablet PO 04/28/24 09:29 5 mg QDAY CORETTA Administration Ceftriaxone Sodium/Dextrose 50 mls @ 100 mls/hr 03/29/24 15:04 04/05/24 09:33 Rocephin/D5w 1gm Iv Premix IV 04/05/24 15:03 100 mls/hr QDAY CORETTA Administration Ondansetron HCl 4 mg 04/01/24 12:29 04/02/24 09:59 Ondansetron Inj 2 Mg/Ml Inj 2 Ml IV 05/01/24 12:28 4 mg Q6HR PRN Administration NAUSEA OR VOMITING Protocol Pantoprazole Sodium 40 mg 03/29/24 09:30 04/05/24 09:34 Pantoprazole Inj 40 Mg Vial IVP 04/28/24 09:29 40 mg QDAY CORETAT Administration Polyethylene Glycol 17 gm 04/02/24 11:00 04/05/24 09:35 Polyethylene Glycol 17 Gm Packet PO 05/02/24 10:59 17 gm QDAY CORETTA Administration Tamsulosin HCl 0.4 mg 03/29/24 09:30 04/05/24 09:31 Tamsulosin Hcl 0.4 Mg Capsule PO 04/28/24 09:29 0.4 mg QDAY CORETTA Administration Plan The patient is an 88-year-old male with past medical hx chronic persistent atrial fibrillation with EDGARDO score of 3 on eliquis 2.5 twice daily,HTN, 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 Admitted for right intratrochanteric fracture. # A-fib rate controlled # ORIF for intertrochanteric fracture right hip ? [id number] of 5 ? Patient was taking diltiazem 240 CD once a day and Eliquis 2.5 mg twice daily. ? EKG showed A-fib with rate control. QTc 447. ? Echocardiogram from September 2023 showed No LA/ GABI thrombus and no PFO or ASD GABI measurements: 0?(diameter: 2.8cm/Depth 2.5cm.), 45?(diameter 2.5cm/Depth 2.6cm), 90?(diameter 2.5cm/Depth 2.7cm), 135?(diameter 2.6cm/Depth 2.8cm). Normal LV size and function. Estiamted EF 60-65%. Mild RV dilatation. Normal RV function. Severe biatrial dilatation. The acending aorta is mildly dilated. 3.6cm. Moderate MR, TR. Mild AI. -we added lovenox 70 mgx1 for now and lovenox 70 mg for morning to bridge due to high risk of stroke ?Rapid response was called last night due to A-fib with RVR night team gave Cardizem 10 mg IV x 1 and currently rate controlled ? Patient underwent open reduction internal fixation for intertrochanteric fracture right hip today, 04/01 Plan: ? Heart rate remains controlled on Cardizem CD 240. ? Recommended to continue Eliquis 2.5 once a day to avoid bleeding risk as patient had episodes of hematuria in the past ? Continue Cardizem 15 mg IV Q4 hourly in case of heart rate above 125 bpm ? Continuous monitoring in telemetry ? Keep mag above 2 and potassium above 4 ? Daily labs ? Monitor for signs symptoms of chest pain and shortness of breath ? Pain management as needed for right hip pain and PT exercises daily # History of hypertension ? Patient was recently discharged from the hospital in August 2023 after workup for stroke on Eliquis. Plan: ? Continue Eliquis 2.5 mg once a day ? Continue statin therapy ? Monitor vitals ? Pain management as needed # ORIF for intertrochanteric fracture right hip # Acute intertrochanteric fracture right hip ?Due to ground-level fall ? Ortho consulted and following the case. ? Pain management as needed # UTI # BPH # COPD # Chronic Bronchitis # History of cerebellar stroke multi infarction embolic phenomena due to A-fib on Eliquis # History of nephrolithiasis # Normocytic anemia # Hematuria and pyuria and UTI per urinalysis Rest of the management as per primary care team. Thank you very much for consulting cardiology team.starting Eliquis 2.5 mg once a day. Continue Cardizem CD 240 once a day. Heart rate remains controlled. Patient is stable from cardiology standpoint to be discharged. Continue pain management and PT exercises as tolerated. -- Plan of care discussed with veterinary surgeon, Dr. Lawrence Silva MD, PGY 2
--- NOTE | 2024-04-05 10:29 | PC.SS ---
Addendum entered by KENNEDI Brower 04/05/24 11:24: Spoke with patient and patient's daughter Cadence to discuss the d/c plan. They are both agreeable with D/c to [facility] today. They indicate they are not able to cover transportation fee at this time. Cadence requesting to be notified of patient's discharge time. Original Note: Contacted patient's insurance carrier, opt. 3. They inform authorization has been obtained with [facility]. Auth number: [id number]. ID: [id number]. Ryann Mireles at [facility], she is agreeable with accepting patient today.
--- NOTE | 2024-04-05 11:00 | PC.SS ---
Addendum entered by Claudia Ford 04/05/24 11:25: SS received a call from [employer] services and informed SS that ETA for transportation was set up for 1500. SS notified patient's nurse, Amanda. SS attempted to contact patient's daughter, however could not get ahold of her. Original Note: SS contacted [facility] transportation to set up transportation for patient. [facility] informed SS they would contact SS in a few minutes to give ETA of transportation.
--- NOTE | 2024-04-05 11:00 | PC.SS ---
Addendum entered by Claudia Ford 04/05/24 11:13: SS received a call from [employer] services and informed SS that ETA for transportation was set up for 1500. SS notified patient's nurse, Amanda as well as patient's daughter, Cadence. Original Note: SS contacted [facility] transportation to set up transportation for patient. [facility] informed SS they would contact SS in a few minutes to give ETA of transportation.
--- NOTE | 2024-04-05 11:30 | PC.SS ---
Patient's discharge ETA with [facility] 3pm. Updated bed side nurse Amanda, patient, patient's daughter Cadence, and Aline from [facility].
--- NOTE | 2024-04-05 14:44 | PC.NURSE ---
Called [facility] and gave report to offgoing nurse Shelley. Notified transport time of 1500.
--- NOTE | 2024-04-05 18:08 | ESDS_ITS ---
<Statement entered by Lou Aponte DO - 04/06/24 14:01> I, Lou Aponte DO, attest that I was physically present for the pimentel portions of the service and evaluated the patient with the resident and I reviewed and discussed the case with the resident and agree with the resident's findings and plans of care as documented above Planned Discharge Date 04/05/24 DS: Providers Provider Date of admission: 03/29/24 09:15 Primary care physician: Ghulam Beal MD Admitting Provider: Chris Hansen MD Attending Provider on Admission: Lou Aponte DO Consults: 03/29/24 05:04 Consult to Orthopedic Stat Comment: Consulting Provider: Tad Lundberg 03/29/24 17:23 Referral Registered Dietitian Routine Comment: [facility] Referral - Knowledge Deficit Routine Comment: Positive screening for knowledge deficit needs. 04/01/24 12:29 Referral Physical Therapy Routine Comment: Gait Training. Both legs full weight bear Physician Instructions: Attending Provider on DC: Denice Sue MD Discharging Provider: Denice Sue MD DS: Diagnosis Problem List Completed Was Problem List Reviewed/Reconciled?: Yes Hospital Course Hospital Course Hospital course: Mr. Navrarete is a 88-year-old male with past medical history significant of COPD, chronic bronchitis, asthma, A-fib, BPH, history of skin cancer status post radiation and recurrent kidney stones who presented to [facility] ED on 03/29/2024 after a ground-level fall. Hip/pelvis x-ray, Hip CT, and Femur x-ray showed an acute angulated intertrochanteric fracture right hip. Cervical spine CT showed no acute cervical fracture. 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 Head CT was negative for acute hemorrhage, mass effect or midline shift. Patient was scheduled for hip replacement surgery on on 04/01/2024. Patient required cardiac clearance for which he was evaluated by Cardiolgy srvices. Patient anticoagulation was held for 48 hpurs prior to surger. Patient's hospital course was complicated by the development of AFIB RVR. Patient was started of Cardizem for rate control. Patient was deemed high risk for stroke and was administererd lovenox 24 hours prior to surgery. Postsurgery patient received physical therapy, and pain management. Anticoagulation was restarted 48 hours postop. Patient also found to have UTI and pyuria for which patient received ceftriaxone. Patient is hemodynamically stable and cleared from orthopedic surgeon Dr. Lundberg to be discharged to rehab. 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 Patient also deferred intervention for nephrolithiasis as patient was previously informed by his urologist and given options for surgical treatment. Patient is advised to follow-up with urologist for further management. Continue home medications as prescribed. Start taking diltiazem 240 mg daily. Take [place] 1 tab every 6 hours as needed for pain. Follow up with orthopedic surgery (Dr. Lundberg) [phone] and PCP within 2 weeks. Please call to make appointment. # Acute intertrochanteric fracture right hip #History of nephrolithiasis. #Hematuria. #BPH. #COPD. #Chronic Bronchitis. #UTI. #Pyuria. #Constipation #A-fib, rate controlled Assessment and plan discussed with my senior resident Dr. Plummer & attending physician Dr. Fay Sue (PGY-1)- Internal medicine resident Time Spent with Patient Time attestation: Total time spent providing and/or coordinating discharge services: >35min Exam Vital Signs Temp Pulse Resp BP Pulse Ox O2 Del Method O2 Flow Rate 97.7 F 86 16 116/63 95 Room Air 0 04/05/24 12:00 04/05/24 12:00 04/05/24 12:00 04/05/24 12:00 04/05/24 12:00 04/05/24 12:00 04/05/24 00:00 Narrative Exam GENERAL: A&Ox3 . Awake, mildly in distress from pain NEURO: psychiatric aide instructor grossly intact, moves extremities x4 HEENT: Atraumatic, Normocephalic. mucous membranes moist. Eyes open, symmetrical, & clear HEART: Normal Heart Sounds LUNGS: Clear to auscultation with no wheezing or crackles. ABDOMEN: soft, non-distended, non-tender, bowel sounds heard, no guarding or rebound tenderness SKIN: No Rash or ecchymoses EXTREMITIES: No edema, s/p surgery on R hip Discharge Plan Plan Patient Disposition: er Skilled [facility] ([facility]) Patient condition on transfer: Stable Care Plan Goals: Continue home medications as prescribed. Start taking diltiazem 240 mg daily. Take [place] 1 tab every 6 hours as needed for pain. Follow up with orthopedic surgery (Dr. Lundberg) [phone] and PCP within 2 weeks. Please call to make appointment. Prescriptions/Referrals Prescriptions/Med Rec: New hydrocodone-acetaminophen 5-325 mg Tablet 1 tab PO Q6HR MDD 20 PRN (Reason: PAIN 4-10) Qty: 20 0RF diltiazem HCl 120 mg Capsule,Extended Release 24hr 240 mg PO QDAY Qty: 30 0RF Continued tamsulosin [Flomax] 0.4 mg capsule 0.4 mg PO QHS silodosin 8 mg capsule 8 mg PO DAILY Patient Comments: take 1 capsule by mouth once daily mirtazapine 45 mg tablet 45 mg PO HS memantine 5 mg tablet 5 mg PO BID Patient Comments: take 1 tablet by mouth twice a day Eliquis 2.5 mg Tablet 2.5 mg PO BID Qty: 60 0RF rosuvastatin [Crestor] 10 mg Tablet 10 mg PO DAILY Discontinued hydrocodone-acetaminophen 10-325 mg Tablet 1 tab PO BID PRN (Reason: Pain, Moderate) Referrals: Ghulam Beal MD [Primary Care Provider] - Patient/Caregiver Discharge Instructions Education Materials: After Hip Replacement: Home Safety, Fx Femur ORIF About, Fx Femur ORIF Tx Print Language: Lao Stand Alone Forms: Iram Award Info., Patient Portal Info Letter Discharge Order Discharge Orders: Discharge (Routine); Ordered 04/05/24 Ordered By: Segundo Orantes Quality Discharge Quality Measures VTE therapy
== END 2024-04-05 15:16 | disposition skilled nursing facility (03) | DRG 481 ==
LOC: SERX 05:15 → SERHOLD 09:31 → S3SX 17:02 → S2NX 03-30 20:16 → S3NX 04-02 05:10
PROVIDERS: Orthopaedic Surgery; Student in an Organized Health Care Education/Training Program; Admitting Provider Internal Medicine; Emergency Provider Emergency Medicine; PCP Family Medicine; Visit Provider Internal Medicine
PROC: 0QS606Z Reposition Right Upper Femur with Intramedullary Internal Fixation Device, Open Approach (ICD-10-PCS; CPT 27245; principal; 2024-04-01 09:15)
DX: S72.141A Displaced intertrochanteric fracture of right femur, initial encounter for closed fracture (principal); I48.19 Other persistent atrial fibrillation; N39.0 Urinary tract infection, site not specified; J44.89 Other specified chronic obstructive pulmonary disease; Z87.442 Personal history of urinary calculi; N20.0 Calculus of kidney; W01.0XXA Fall on same level from slipping, tripping and stumbling without subsequent striking against object, initial encounter; N40.0 Benign prostatic hyperplasia without lower urinary tract symptoms; Z85.828 Personal history of other malignant neoplasm of skin; R73.03 Prediabetes; Z79.01 Long term (current) use of anticoagulants; I10 Essential (primary) hypertension; D64.9 Anemia, unspecified; K59.00 Constipation, unspecified; Z86.73 Personal history of transient ischemic attack (TIA), and cerebral infarction without residual deficits
CPT/HCPCS: 36415; 70450; 72125; 73502; 73503; 73552; 73700; 76000; 80053; 81001; 83735; 84100; 84484; 85014; 85018; 85025; 85610; 85730; 86850; 86900; 86901; 86923; 87081; 87086; 93005; 93225; 96365; 96375; 96376; 97162; 99285; A4649; C1713; C1769; C1776; J0689; J0690; J0696; J1100; J1580; J1650; J2250; J2270; J2371; J2405; J2470; J2704; J2765; J2795; J3010; J3490; J7030; P9016; Q0162; A9270

== ENCOUNTER → 2024-05-09 | Outpatient (CLI) | payer OTHER, SELFPAY ==
[2024-05-09 13:20] LABS: Collection Type, Urine Clean Catch; Squamous Epithelial Cell,Urine 0 /hpf (0-5)
[2024-05-09 15:01] LABS: Bilirubin,Urine Negative (Negative); Blood,Urine 2+ (Negative); Budding Yeast,Urine Present; Clarity,Urine Turbid (Clear/Hazy); Color,Urine Yellow (Lt Yel-Yel); Glucose, Urine Negative (Negative); Ketones,Urine Negative (Negative); Leukocyte Esterase,Urine Positive (Negative); Nitrite,Urine Positive (Negative); Protein,Urine 1+ (Neg - Trace); RBC,Urine 348 /hpf (0-3); Specific Gravity,Urine 1.016 (1.001-1.035); Urobilinogen,Urine Negative mg/dL (0.0-1.0); WBC,Urine 572 /hpf (0-5)
[2024-05-09 15:02] LABS: Culture Indicated,Urine Yes
== END | disposition home or self-care (01) ==
LOC: SLDO 13:08
PROVIDERS: Referring Provider Family Medicine; Visit Provider Family Medicine
DX: N39.0 Urinary tract infection, site not specified (principal)
CPT/HCPCS: 81001; 87077; 87086; 87186

== ENCOUNTER 2024-05-25 17:43 | Emergency (ER) | payer OTHER, SELFPAY ==
[2024-05-25 17:51] VITALS: BP 123/78; PULSE 75; RESP 18; TEMP 36.7; O2SAT 95; BMI 24.2
--- NOTE | 2024-05-25 18:08 | XR_ITS ---
Examination: Wrist, left 3 views Technique: Wrist AP, oblique, lateral 3 views Date and time of exam: May 25, 2024 1818 hours INDICATIONS: Patient fell today with injury to the wrist, wrist pain. FINDINGS: Severe osteopenia No acute wrist fracture No dislocation IMPRESSION: No acute wrist fracture Given the severe osteopenia, suggest short-term follow-up wrist films as clinically warranted
--- NOTE | 2024-05-25 18:08 | XR_ITS ---
Examination: Bilateral hips, AP pelvis, 5 views Technique: AP, lateral views both hips, AP pelvis, 5 views Exam date and time: May 25, 2024 1818 hours INDICATIONS: Patient fell today with injury to both hips, bilateral rib pain. FINDINGS: Old healed right hip fracture No left hip fracture or hip dislocation Bones of the pelvis intact Prominent osteopenia IMPRESSION: No acute hip or pelvic fracture Given the patient's osteopenia, suggest short-term follow-up AP pelvis as clinically warranted
--- NOTE | 2024-05-25 18:09 | EDNOTE_ITS ---
Lower Extremity Injury RME/HPI General Chief Complaint: Hip Injury/Pain Stated Complaint: LEFT HIP AND WRIST PAIN POST FALL Time Seen by Provider: 05/25/24 18:04 Source: patient Arrival date/time: 05/25/24 17:43 88-year-old male with a history of hyperlipidemia, hypertension, and a recent right-sided hip fracture 3 months ago presents to the emergency room with a chief complaint of left-sided wrist pain and left-sided hip pain after a fall that occurred today. Mode of arrival: ambulatory Limitations: no limitations Related Data Home Medications ?Medication ?Instructions ?Recorded ?Confirmed memantine 5 mg tablet 5 mg PO BID 11/25/22 03/31/24 mirtazapine 45 mg tablet 45 mg PO HS 11/25/22 03/31/24 rosuvastatin 10 mg tablet (Crestor) 10 mg PO DAILY 09/25/23 03/31/24 tamsulosin 0.4 mg capsule (Flomax) 0.4 mg PO QHS 10/09/23 03/30/24 silodosin 8 mg capsule 8 mg PO DAILY 03/31/24 03/31/24 Previous Rx's ?Medication ?Instructions ?Recorded apixaban 2.5 mg tablet (Eliquis) 2.5 mg PO BID #60 tabs 08/20/23 diltiazem HCl 120 mg 240 mg (2 x 120 mg) PO QDAY #30 04/04/24 capsule,extended release 24 hr caps hydrocodone 5 mg-acetaminophen 325 1 tab PO Q6HR PRN PAIN 4-10 #20 04/04/24 mg tablet tabs Allergies Allergy/AdvReac Type Severity Reaction Status Date / Time No Known Allergies Allergy Verified 10/09/23 11:39 Review of Systems Review of Systems Systems Reviewed: All systems reviewed, normal except as documented Constitutional Constitutional: Reports system reviewed and no additional complaints, except as documented, Denies fatigue, Denies fever(s), Denies headache(s) and Denies weakness Eyes Eyes: Reports system reviewed and no additional complaints, except as documented, Denies blurry vision and Denies change in vision ENT Ears, Nose, Mouth, and Throat: Reports system reviewed and no additional complaints, except as documented, Denies otalgia, Denies headache(s), Denies nasal congestion, Denies throat swelling and Denies vertigo Cardiovascular Cardiovascular: Reports system reviewed and no additional complaints, except as documented, Denies chest pain, Denies dyspnea and Denies dyspnea on exertion Respiratory Respiratory: Reports system reviewed and no additional complaints, except as documented, Denies chest congestion, Denies cough, Denies dyspnea, Denies dyspnea on exertion and Denies wheezing Gastrointestinal Gastrointestinal: Reports system reviewed and no additional complaints, except as documented, Denies abdominal pain, Denies cramping, Denies nausea and Denies vomiting Genitourinary Genitourinary: Reports system reviewed and no additional complaints, except as documented, Denies dysuria and Denies hematuria Musculoskeletal Musculoskeletal: Reports system reviewed and no additional complaints, except as documented, Reports arthralgias and Denies back pain Integumentary/Breasts Skin/Breast: Reports system reviewed and no additional complaints, except as documented and Denies wounds Neurologic Neurologic: Reports system reviewed and no additional complaints, except as documented, Denies confusion, Denies headache(s), Denies lack of coordination, Denies vertigo and Denies weakness Psychiatric Psychiatric: Reports system reviewed and no additional complaints, except as documented, Denies anxiety, Denies confusion, Denies depression, Denies paranoia, Denies suicidal ideation and Denies tactile hallucinations Endocrine Endocrine: Reports system reviewed and no additional complaints, except as documented and Denies fatigue Hematologic/Lymphatic Hematologic/Lymphatic: Reports system reviewed and no additional complaints, except as documented and Denies lymphadenopathy Allergic/Immunologic Allergic/Immunologic: Reports system reviewed and no additional complaints, exc ept as documented, Denies throat swelling, Denies urticaria and Denies wheezing Past Medical History Past Medical History NEUROLOGIC: Positive Cerebrovascular Accident; Negative Neurological Disorders or Seizures CARDIAC: Positive Cardiac Disorders, Myocardial Infarction, Atrial Fibrillation, Hypercholesterolemia and Hypertension; Negative Cardiac Arrhythmia, Angina, Atherosclerotic Heart Disease, Aneurysm, Congestive Heart Failure, Congenital Heart Disease or Cardiomyopathy RESPIRATORY: Positive Asthma and Pneumonia; Negative Chronic Obstructive Pulmonary Disease (COPD), Emphysema or Tuberculosis GASTROINTESTINAL: Positive Gastrointestinal Disorders and Diverticulosis; Negative Cirrhosis, Pancreatitis, Celiac Disease, Gall Bladder Disease, Gastrointestinal Bleed, Esophageal Varices, Gandara's Esophagus, Colitis, Ulcerative Colitis, Diverticulitis, Ulcer, Irritable Bowel, Crohn's Disease, Obstructive Bowel, Hiatal Hernia, Hemorrhoids, Gastroesophageal Reflux Disease or Obesity GENITOURINARY: Positive Genitourinary Disorders and Kidney Stones; Negative Renal Disease, Polycystic Kidney Disease, Neurogenic Bladder, Inguinal Hernia, Dialysis or Benign Prostatic Hyperplasia MUSCULOSKELETAL: Positive Musculoskeletal Disorders, Arthritis and Gout ENT: Positive Cataracts and Deafness; Negative Glaucoma, Retinal Detachment, Macular Degeneration, Ear Infection or Eye Prosthesis ENDOCRINE: Negative Endocrine Disorders, Diabetes Mellitus Type 1 or Diabetes Mellitus Type 2 HEMATOLOGIC: Negative Blood Disorders or Sickle Cell Disease PSYCHO/SOCIAL: Positive Anxiety; Negative Depression OTHER HISTORY: Positive Falls, Blood Transfusions, Chicken Pox, Measles and Mumps; Negative Autoimmune Disease, Blood Transfusion Reaction, Anesthesia Reactions or Cancer Family History FAMILY HISTORY: Positive Family Cardiac Disorders, Family Gastrointestinal Problems, Family Cancer and Family Surgery; Negative Family Psychiatric Problems, Family Respiratory Disorders or Family Anesthesia Reaction Surgical History SURGICAL: Positive Angiogram, Eye Surgery and Abdominal Surgery; Negative Endocrine Surgery, Ear Surgery, Gastric Bypass Surgery, Gastrostomy, Bowel Surgery, Nephrectomy, Transurethral Resection, Joint Replacement, Neurologic Surgery, Mastectomy or Vasectomy Social History SMOKING STATUS: Never smoker SECOND HAND EXPOSURE: No SUBSTANCE USE: does not use OCCUPATION: [employer] ED Exam General Limitations: Present no limitations General appearance: Present alert and in no apparent distress Head Head exam: Present atraumatic Eye Eye exam: Present normal appearance, PERRL and EOMI ENT ENT exam: Present normal exam, normal oropharynx and mucous membranes moist Neck Neck exam: Present normal inspection, full ROM and trachea midline Chest Chest inspection: Present normal inspection and symmetric chest wall rise Respiratory Respiratory exam: Present normal lung sounds bilaterally Cardiovascular Cardiovascular exam: Present regular rate, normal rhythm and normal heart sounds Abdominal Exam Abdominal exam: Present soft and normal bowel sounds Extremities Exam Extremities exam: Present normal inspection and full ROM Expanded Lower Extremity Exam Hip/Pelvis exam: Present tenderness and pelvis stable; Absent full ROM Back Exam Back exam: Present normal inspection and full ROM Neurological Exam Neurological exam: Present alert, oriented X3 and CN II-XII intact Psychiatric Psychiatric exam: Present normal affect and normal mood Skin Skin exam: Present warm, dry, intact and normal color Course Quality Measures none Orders Category Date Time Status XR hip BI w pelvis 3-4V Stat Exams 05/25/24 18:08 Completed XR wrist comp LT min 3V Stat Exams 05/25/24 18:08 Completed HYDROcodone*/APAP 5/325 [Springer 5/325] Med 05/25/24 18:08 Discontinued 1 tab PO X1 ONE Vital Signs Vital signs: Vital Signs Temperature 98.1 F 05/25/24 17:51 Pulse Rate 75 05/25/24 17:51 Respiratory Rate 18 05/25/24 17:51 Blood Pressure 123/78 05/25/24 17:51 Pulse Oximetry (%) 95 05/25/24 17:51 Oxygen Delivery Method Room Air 05/25/24 17:51 O2 saturation 95% within normal limits Extremity Injury, Lower MDM Narrative MDM Narrative:: 88-year-old male with a history of hyperlipidemia, hypertension, and a recent right-sided hip fracture 3 months ago presents to the emergency room with a chief complaint of left-sided wrist pain and left-sided hip pain after a fall that occurred today. Clinically the patient appears nontoxic and in no apparent distress. Physical examination shows pain and tenderness to the left hip with palpation. Patient states he had a recent hip fracture 3 months ago to the right hip. X-rays were completed and were negative for any acute fractures. X- ray of the left wrist was completed and was negative for any acute fracture. Patient was discharged and educated to follow-up with primary care provider and return to the emergency room for any evidence of worsening signs or symptoms Patient data External records reviewed:: [facility] previous records Clinical information provided by:: patient Social determinants that could affect healthcare access:: none Patient has the following chronic illnesses:: Hyperlipidemia, BPH How is presenting disease/condition affected by chronic disease/condition?: uneffected by Evaluation data The following diagnostics were reviewed and interpreted by me:: lab results and radiology exam(s) Lab and/or radiology exams considered but not ordered:: Labs and radiology exams considered and ordered Interpretation Summary: X-ray left hip-FINDINGS: Old healed right hip fracture No left hip fracture or hip dislocation Bones of the pelvis intact Prominent osteopenia IMPRESSION: No acute hip or pelvic fracture Given the patient's osteopenia, suggest short-term follow-up AP pelvis as clinically warranted Medications / Prescriptions Medications or Prescriptions considered but not ordered:: Medication given Medication administrations:: Medication Administration History Discontinued Medications Hydrocodone Bitart/Acetaminophen (Hydrocodone/Apap 5/325 Tablet) 1 tab PO X1 ONE Stop: 05/25/24 18:09 Last Admin: 05/25/24 18:17 Dose: 1 tab Documented By: ANGELICA Medication given Consultations Consultation(s) initiated? (list below): No Diagnosis Extremity Injury, Lower Differential Diagnosis: fracture of hip and other (Hip contusion) Most likely diagnosis given after review of the tests above:: Hip contusion Admission Indicated Admission indicated?: not indicated Admission Request Was there a request for admission?: No Disposition Plan Disposition Plan: Discharge Discharge Attestation Discharge Attestation: The patient and all family members were given an opportunity to ask questions and understood the discharge instructions. Discharge instructions specifically effects, indications for sooner follow up or return to the emergency department, and the expected course of current diagnosis. Patient condition: Stable Discharge Plan Plan Patient Disposition: HOME (Self Care) Disposition Comment: Stable Prescriptions/Referrals Prescriptions/Med Rec: No Action tamsulosin [Flomax] 0.4 mg capsule 0.4 mg PO QHS silodosin 8 mg capsule 8 mg PO DAILY Patient Comments: take 1 capsule by mouth once daily hydrocodone-acetaminophen 5-325 mg Tablet 1 tab PO Q6HR MDD 20 PRN (Reason: PAIN 4-10) Qty: 20 0RF diltiazem HCl 120 mg Capsule,Extended Release 24hr 240 mg PO QDAY Qty: 30 0RF mirtazapine 45 mg tablet 45 mg PO HS memantine 5 mg tablet 5 mg PO BID Patient Comments: take 1 tablet by mouth twice a day Eliquis 2.5 mg Tablet 2.5 mg PO BID Qty: 60 0RF rosuvastatin [Crestor] 10 mg Tablet 10 mg PO DAILY Referrals: Ghulam Beal MD [Primary Care Provider] - In 1 week Problem List Clinical Impression: Contusion of hip, left Patient/Caregiver Discharge Instructions Education Materials: ED Hip Contusion Additional Instructions: Please follow-up with your primary care provider in the next 24 to 48 hours. X-rays were completed and were negative for any acute hip fractures. For any evidence of worsening signs or symptoms please return to the emergency room immediately Print Language: Lao Stand Alone Forms: Iram Award Info., Patient Portal Info Letter PA/ULISES Supervising Physician JOI/ULISES Supervising Physician: Dr. Miranda
[2024-05-25] MEDS: HYDROcodone/APAP 5/325 TABLET 1 TAB PO (18:17)
[2024-05-25 19:21] VITALS: BP 126/76; PULSE 72; RESP 18; TEMP 36.7; O2SAT 95
== END 2024-05-25 19:23 | disposition home or self-care (01) ==
PROVIDERS: Emergency Provider Emergency Medicine; PCP Family Medicine
DX: S70.02XA Contusion of left hip, initial encounter (principal); S79.911A Unspecified injury of right hip, initial encounter; S69.92XA Unspecified injury of left wrist, hand and finger(s), initial encounter; M85.89 Other specified disorders of bone density and structure, multiple sites; W19.XXXA Unspecified fall, initial encounter
CPT/HCPCS: 73110; 73522; 99283; A9270

== ENCOUNTER → 2024-06-23 | Outpatient (CLI) | payer OTHER, SELFPAY ==
[2024-06-23 16:56] LABS: Amphetamine/Methamp Scrn,U Negative (Negative); Barbiturate Screen,Urine Negative (Negative); Benzodiazepines Screen,Urine Negative (Negative); Benzoylecgonine Screen, Ur Negative (Negative); Fentanyl Screen,Urine Negative (Negative); Opiate Screen,Urine Positive (Negative); THC Screen,Urine Negative (Negative)
== END | disposition home or self-care (01) ==
LOC: SLDO 15:22
PROVIDERS: PCP Nurse Practitioner Family; Referring Provider Nurse Practitioner Family; Visit Provider Nurse Practitioner Family
DX: G89.4 Chronic pain syndrome (principal)
CPT/HCPCS: 80307

== ENCOUNTER → 2025-01-13 | Outpatient (BNVA) | payer OTHER, SELFPAY | END | disposition home or self-care (01) | PROVIDERS: PCP Nurse Practitioner Family; Referring Provider Nurse Practitioner Family; Visit Provider Urology | DX: N40.1 Benign prostatic hyperplasia with lower urinary tract symptoms (principal); N13.8 Other obstructive and reflux uropathy; N13.2 Hydronephrosis with renal and ureteral calculous obstruction; J44.9 Chronic obstructive pulmonary disease, unspecified; I10 Essential (primary) hypertension; Z86.73 Personal history of transient ischemic attack (TIA), and cerebral infarction without residual deficits; I48.91 Unspecified atrial fibrillation; E78.00 Pure hypercholesterolemia, unspecified | CPT/HCPCS: 81003; 99212; G0463 ==

== ENCOUNTER → 2025-03-07 | Outpatient (CLI) | payer OTHER, SELFPAY ==
--- NOTE | 2025-03-07 08:00 | XR_ITS ---
Examination: CT pelvis without intravenous contrast. 2-D sagittal and coronal reconstructions. Date and time of exam: March 07, 2025, 0813 hours INDICATIONS: Left-sided pelvic pain several years, diagnosis left inguinal hernia CTDI: vol (mGy) : 5.93 DLP: (mGycm) : 231 Technique: Multiple 3 mm axial sections of the pelvis have been obtained with the 64 slice high resolution scanner. 2-D sagittal and coronal reconstructions. Low dose protocols were performed. One or more of the following dose reduction techniques were used; automated exposure control, adjustment of the mA and/or KV according to patient size, use of iterative reconstruction technique. Findings: Extensive fat density with a 17 mm calcification adjacent to the lower pole right kidney, consider fatty tumor right kidney No bowel obstruction Heavy vascular calcification Normal appendix Colonic diverticulosis Urinary bladder intact Fat-containing left inguinal hernia No bowel present in this hernia defect Severe osteopenia, healed old right hip fracture IMPRESSION: Extensive fat density with a 17 mm calcification adjacent to the lower pole right kidney, recommend CT scan abdomen kidneys follow-up pre and postcontrast Fat-containing left inguinal hernia
== END | disposition home or self-care (01) ==
LOC: CCTX 08:08
PROVIDERS: PCP Family Medicine; Referring Provider Surgery; Visit Provider Surgery
DX: N28.89 Other specified disorders of kidney and ureter (principal); K40.90 Unilateral inguinal hernia, without obstruction or gangrene, not specified as recurrent
CPT/HCPCS: 72192